=== PATIENT | male | born 1935 | race Caucasian/White ===

== ENCOUNTER → 2016-10-24 | Outpatient (CLI) | payer MEDICARE, OTHER ==
[2016-10-24 08:31] LABS: APPEARANCE,URINE CLEAR; BILIRUBIN,URINE NEGATIVE (NEGATIVE); GLUCOSE, URINE NEGATIVE (NEGATIVE); KETONES,URINE NEGATIVE (NEGATIVE); LEUKOCYTE ESTERASE,URINE NEGATIVE (NEGATIVE); NITRITE,URINE NEGATIVE (NEGATIVE); PROTEIN,URINE NEGATIVE (NEGATIVE); URINE SPECIFIC GRAVITY 1.011; UROBILINOGEN,URINE NEGATIVE mg/dL (<2.0)
[2016-10-24 08:37] LABS: ABSOLUTE BASOPHILS # (AUTO) 0.1 10^3/uL (0.0-0.2); ABSOLUTE EOSINOPHILS # (AUTO) 0.5 10^3/uL (0.0-0.6); ABSOLUTE NEUT (AUTO) 7.3 10^3/uL (1.7-8.2); BASOPHILS % (AUTO) 0.7 % (0-2); EOSINOPHILS % (AUTO) 4.6 % (0-6); HEMATOCRIT 45.2 % (37.9-51.0); HEMOGLOBIN 15.3 g/dL (13.5-17.0); HGB HCT DIFFERENCE 0.7; LYMPHOCYTES % (AUTO) 17.9 % (13-45); MEAN CORPUSCULAR HEMOGLOBIN 29.6 pg (27.0-33.4); MEAN CORPUSCULAR HGB CONC 33.9 g/dL (32.0-36.0); MEAN CORPUSCULAR VOLUME 87 fl (80-97); MONOCYTES % (AUTO) 9.6 % (3-13); RED BLOOD COUNT 5.18 10^6/uL (4.35-5.55); RED CELL DISTRIBUTION WIDTH 13.3 % (11.5-14.0); SEGMENTED NEUTROPHILS % (AUTO) 67.2 % (42-78); WHITE BLOOD COUNT 10.9 10^3/uL (4.0-10.5)
[2016-10-24 08:59] LABS: ALANINE AMINOTRANSFERASE 32 U/L (21-72); ALBUMIN 4.1 g/dL (3.5-5.0); ALKALINE PHOSPHATASE 60 U/L (38-126); ANION GAP 11 (5-19); ASPARTATE AMINO TRANSFERASE 20 U/L (17-59); BILIRUBIN,TOTAL 1.3 mg/dL (0.2-1.3); BLOOD UREA NITROGEN 14 mg/dL (7-20); CARBON DIOXIDE 32 mmol/L (22-30); CHLORIDE 100 mmol/L (98-107); CHOLESTEROL 114.59 mg/dL (0-200); CREATININE RESULT 0.82 mg/dL (0.52-1.25); Direct HDL 43 mg/dL (>40); GLUCOSE 163 mg/dL (75-110); POTASSIUM 5.1 mmol/L (3.6-5.0); SODIUM 142.5 mmol/L (137-145); TOTAL PROTEIN 7.6 g/dL (6.3-8.2); TRIGLYCERIDES 173 mg/dL (<150)
[2016-10-24 09:00] LABS: VLDL CHOLESTEROL 34.6 mg/dL (10-31)
[2016-10-24 09:10] LABS: DIRECT LDL 42 mg/dL (<100)
== END ==
LOC: OD 07:10
DX: E11.9 Type 2 diabetes mellitus without complications (principal); M10.9 Gout, unspecified; R79.89 Other specified abnormal findings of blood chemistry; I10 Essential (primary) hypertension; Z79.899 Other long term (current) drug therapy
CPT/HCPCS: 36415; 71020; 80053; 80061; 81001; 83036; 84443; 84550; 85025

== ENCOUNTER → 2016-11-30 | Outpatient (CLI) | payer MEDICARE, OTHER ==
[2016-11-30 08:07] LABS: ALANINE AMINOTRANSFERASE 30 U/L (21-72); ALBUMIN 3.9 g/dL (3.5-5.0); ALKALINE PHOSPHATASE 62 U/L (38-126); ANION GAP 13 (5-19); ASPARTATE AMINO TRANSFERASE 22 U/L (17-59); BILIRUBIN,TOTAL 1.3 mg/dL (0.2-1.3); BLOOD UREA NITROGEN 9 mg/dL (7-20); CALCIUM 9.6 mg/dL (8.4-10.2); CARBON DIOXIDE 27 mmol/L (22-30); CHLORIDE 102 mmol/L (98-107); CREATININE RESULT 0.66 mg/dL (0.52-1.25); GLUCOSE 141 mg/dL (75-110); POTASSIUM 4.3 mmol/L (3.6-5.0); SODIUM 142.4 mmol/L (137-145); TOTAL PROTEIN 6.8 g/dL (6.3-8.2)
== END ==
LOC: OD 07:06
DX: E11.9 Type 2 diabetes mellitus without complications (principal); Z79.899 Other long term (current) drug therapy
CPT/HCPCS: 36415; 80048; 80076

== ENCOUNTER → 2016-12-09 | Outpatient (CLI) | payer MEDICARE, OTHER | LOC: OD 08:12 | DX: N40.0 Benign prostatic hyperplasia without lower urinary tract symptoms (principal) | CPT/HCPCS: 36415; 84153 ==

== ENCOUNTER 2017-03-15 10:24 | Day surgery (SDC) | payer MEDICARE, OTHER ==
[~2017-03-15 10:24] MED LIST: KETOROLAC TROMETHAMINE 0.45% 4 DROP/0.4 ML DROPERETTE OD PRN; PHENYLEPHRINE/KETOROLAC 1%-0.3% 4 ML VIAL ONE
[2017-03-15] MEDS ORDERED: CHONDR SU A NA/HYALUR INTRAOC KIT (SURGICARE) ONE (10:26)
[2017-03-15] MEDS ORDERED: TOBRAMYCIN SULFATE/DEXAMETH OPH OINTMENT 3.5 GM ONE (10:26)
[2017-03-15] MEDS ORDERED: LIDOCAINE 1% INJ-PF (10 MG/ML) 30 ML SDV ONE (10:26)
[2017-03-15] MEDS: TROPICAMIDE 1% OPH SOLN 3 ML OD PRN ×4 (11:09→11:29)
[2017-03-15] MEDS: BESIFLOXACIN HCL 0.6% OPH SUSP 5 ML BOTTLE OD PRN ×4 (11:09→12:04)
[2017-03-15] MEDS: CYCLOPENTOLATE 0.2%/PHENYLEPHRINE 1% OPH SOLN 2 ML OD PRN ×3 (11:09→11:29)
[2017-03-15] MEDS: TETRACAINE HCL 0.5% OPH SOLN 0.6 ML DROPERETTE OD PRN ×2 (11:10→11:41)
[2017-03-15] MEDS ORDERED: FENTANYL CITRATE INJ/PF 100 MCG/2 ML AMPUL ONE (11:22)
[2017-03-15] MEDS ORDERED: MIDAZOLAM 2 MG/2 ML INJ ONE (11:22)
[2017-03-15] MEDS ORDERED: CHONDR SU A NA/HYALUR SOD 0.5 ML DISP.SYRIN ONE (12:13)
== END 2017-03-15 13:09 | disposition home or self-care (01) ==
LOC: SC 10:24
PROVIDERS: ATTEND Ophthalmology
PROC: 08RJ3JZ Replacement of Right Lens with Synthetic Substitute, Percutaneous Approach (ICD-10-PCS; 2017-03-15)
PROC: 089230Z Drainage of Right Anterior Chamber with Drainage Device, Percutaneous Approach (ICD-10-PCS; principal; 2017-03-15 11:30)
DX: H25.11 Age-related nuclear cataract, right eye (principal); H40.1111 Primary open-angle glaucoma, right eye, mild stage; M19.90 Unspecified osteoarthritis, unspecified site; E11.9 Type 2 diabetes mellitus without complications; K21.9 Gastro-esophageal reflux disease without esophagitis; E78.00 Pure hypercholesterolemia, unspecified; D64.9 Anemia, unspecified; G47.30 Sleep apnea, unspecified; M10.9 Gout, unspecified; Z79.82 Long term (current) use of aspirin; Z79.899 Other long term (current) drug therapy; Z79.84 Long term (current) use of oral hypoglycemic drugs; Z95.1 Presence of aortocoronary bypass graft; I25.2 Old myocardial infarction
CPT/HCPCS: 0191T; 66984; 142; 82962; C1783; C9447; J2250; J3010; J3490; V2630

== ENCOUNTER → 2017-08-10 | Outpatient (CLI) | payer MEDICARE, OTHER ==
[~2017-08-10] MED LIST changes: +AMINOPHYLLINE INJ/PF 250 MG/10 ML SDV IV ONE; -KETOROLAC TROMETHAMINE 0.45% 4 DROP/0.4 ML DROPERETTE OD PRN; -PHENYLEPHRINE/KETOROLAC 1%-0.3% 4 ML VIAL ONE; +REGADENOSON INJ 0.4 MG/5 ML DISP.SYRIN IV ONE
--- NOTE | 2017-08-10 19:32 | DRAGON STRESS TEST REPORT ---
INTRAVENOUS LEXISCAN CARDIOLITE STRESS TEST USING SINGLE PHOTON EMMISION COMPUTERIZED TOMOGRAPHIC. DATE OF PROCEDURE: August 10, 2017 INDICATION : Coronary artery disease CARDIAC RISK FACTORS: Diabetes, hypertension, dyslipidemia, known CAD and status post CABG RESTING EKG: Sinus rhythm, QS complex in V1 to V3, minor nonspecific ST segment changes noted STRESS EKG: No significant changes noted with LexiScan bolus REASON FOR TERMINATION: Protocol. PROCEDURE REPORT: Baseline heart rate 62 beats per minute with blood pressure of 164/94. Patient had no significant complaints. Heart rate at 2 minutes post bolus 75 with a blood pressure of 187/81. 3 minutes post bolus heart rate 71 with blood pressure of 181/83. No significant EKG changes were noted. Patient had no significant complaints during the procedure or postprocedure. Patient injected with Aminophyllin 75 mg at 3 minutes or later after Lexiscan bolus. CONCLUSIONS: Normal EKG and hemodynamic response to IV LexiScan. NUCLEAR DATA: At rest the patient was given 12.25 millicuries of technetium 99 sestamibi injected intravenously. As per protocol rest gated SPECT images were obtained. Subsequently the patient was given intravenous LexiScan at a dose of 0.4 mg in 5 mL intravenously, followed by flush with normal saline. Subsequently the stress dose of 37.1 millicuries of technetium 99 sestamibi was injected intravenously. As per protocol stress gated images were obtained. NUCLEAR INTERPRETATION: Both raw and processed data were used for interpretation. Visual, qualitative, computer-generated quantitative data was used. There was good myocardial uptake of technetium compound. Motion artifact and soft tissue attenuations were noted. Increased visceral uptake was noted. No definitive areas of transient perfusion defect noted except for mild decreased uptake in the basal and mid segment of inferolateral wall consistent with mild ischemia. SDS score was however only 2. No definitive areas of fixed perfusion defect or scars noted. EKG gated imaging showed LV EF at 46 %, rest and stress gated EF similar visually, probable mild basal and mid inferolateral hypokinesia. T. I D. ratio was 1.05. Lung heart ratio noted to be within normal limits 0.25. No significant extracardiac and abnormal radiotracer activities were noted. RV free wall uptake was noted to be mildly increased. IMPRESSION: Also refer to comments under nuclear interpretation. Also test results needs to be interpreted in the context of pretest probability. 1. Mild transient perfusion defect consistent with mild ischemia noted in the basal and mid inferolateral wall of the left ventricle. SDS score of 2. 2. There is no definitive scintigraphic evidence of myocardial infarction/scar. 3. EKG gated imaging shows left ventricular ejection fraction of approximately 46 %. 4. Clinical correlation requested as occasionally single vessel disease or balanced ischemia could be missed. In approximately 10% of the cases Lexiscan may not cause adequate vasodilatory stress. RECOMMENDATIONS: Aggressive risk factor modification, medical therapy. Clinical correlation with echocardiogram derived ejection fraction. Inability to exercise by itself can lead to increased cardiovascular event risks. Consider cardiology consultation and or follow-up if clinically indicated. Baldomero Morillo M.D., [employer] assembly inspector, Board certified in cardiovascular diseases, Nuclear cardiology, Echocardiography Cardiac CT and cardiac MRI Ph. [phone] [facility]
== END ==
LOC: RAD 07:21
PROVIDERS: ATTEND Internal Medicine Cardiovascular Disease
DX: I25.10 Atherosclerotic heart disease of native coronary artery without angina pectoris (principal); I10 Essential (primary) hypertension; E11.9 Type 2 diabetes mellitus without complications; E78.5 Hyperlipidemia, unspecified; Z95.1 Presence of aortocoronary bypass graft
CPT/HCPCS: 93017; 78452; A9500; J2785; J0280; Q9969

== ENCOUNTER → 2017-10-10 | Outpatient (CLI) | payer MEDICARE, OTHER ==
[2017-10-10 08:30] LABS: ABSOLUTE BASOPHILS # (AUTO) 0.1 10^3/uL (0.0-0.2); ABSOLUTE EOSINOPHILS # (AUTO) 0.7 10^3/uL (0.0-0.6); ABSOLUTE LYMPHOCYTES (AUTO) 1.9 10^3/uL (0.5-4.7); ABSOLUTE MONOCYTES (AUTO) 0.8 10^3/uL (0.1-1.4); ABSOLUTE NEUT (AUTO) 5.3 10^3/uL (1.7-8.2); BASOPHILS % (AUTO) 1.1 % (0-2); EOSINOPHILS % (AUTO) 7.6 % (0-6); HEMATOCRIT 41.6 % (37.9-51.0); HEMOGLOBIN 14.4 g/dL (13.5-17.0); LYMPHOCYTES % (AUTO) 21.6 % (13-45); MEAN CORPUSCULAR HEMOGLOBIN 29.9 pg (27.0-33.4); MEAN CORPUSCULAR HGB CONC 34.7 g/dL (32.0-36.0); MEAN CORPUSCULAR VOLUME 86 fl (80-97); MONOCYTES % (AUTO) 9.3 % (3-13); PLATELET COUNT 218 10^3/uL (150-450); RED BLOOD COUNT 4.84 10^6/uL (4.35-5.55); RED CELL DISTRIBUTION WIDTH 13.5 % (11.5-14.0); SEGMENTED NEUTROPHILS % (AUTO) 60.4 % (42-78); TOTAL CELLS COUNTED % (AUTO) 100 %; WHITE BLOOD COUNT 8.8 10^3/uL (4.0-10.5)
[2017-10-10 08:51] LABS: ALANINE AMINOTRANSFERASE 30 U/L (21-72); ALBUMIN 4.1 g/dL (3.5-5.0); ALKALINE PHOSPHATASE 64 U/L (38-126); ANION GAP 10 (5-19); ASPARTATE AMINO TRANSFERASE 22 U/L (17-59); BILIRUBIN,DIRECT 0.3 mg/dL (0.0-0.4); BILIRUBIN,TOTAL 1.1 mg/dL (0.2-1.3); BLOOD UREA NITROGEN 10 mg/dL (7-20); CARBON DIOXIDE 32 mmol/L (22-30); CHLORIDE 102 mmol/L (98-107); CHOLESTEROL 116.51 mg/dL (0-200); GLUCOSE 139 mg/dL (75-110); TOTAL PROTEIN 6.7 g/dL (6.3-8.2); TRIGLYCERIDES 158 mg/dL (<150); URIC ACID 5.5 mg/dL (3.5-8.5)
[2017-10-10 09:02] LABS: DIRECT LDL 53 mg/dL (<100)
[2017-10-10 09:43] LABS: VLDL CHOLESTEROL 31.6 mg/dL (10-31)
[2017-10-13 10:38] LABS: CREATININE URINE 76.3 mg/dL (Not Estab.); MICROALBUMIN URINE 4.1 ug/mL (Not Estab.)
== END ==
LOC: OD 07:21
PROVIDERS: ATTEND Family Medicine Geriatric Medicine
DX: E11.9 Type 2 diabetes mellitus without complications (principal); E78.5 Hyperlipidemia, unspecified; E55.9 Vitamin D deficiency, unspecified; Z79.899 Other long term (current) drug therapy
CPT/HCPCS: 36415; 80053; 80061; 82043; 82306; 82570; 82607; 83036; 84443; 84550; 85025

== ENCOUNTER 2017-10-15 12:47 | Emergency (ER) | payer MEDICARE, OTHER ==
--- NOTE | 2017-10-15 14:33 | ER Document Report ---
ED Medical Screen (RME) - General Chief Complaint: Laceration Stated Complaint: FALL HEAD INJURY Time Seen by Provider: 10/15/17 14:31 Mode of Arrival: Ambulatory Information source: Patient Notes: This is an 82-year-old man that was helped moving a mattress and fell and hit his head. There was no loss of consciousness. He does have a laceration to the right side of the scalp. He thinks that his tetanus was in the last 5-10 years. He is accompanied by his daughter who will be checking with his TRAVEL OUTSIDE OF THE [place] IN LAST 30 DAYS: No - Related Data Allergies/Adverse Reactions: No Known Allergies Allergy (Verified 10/15/17 12:50) Past Medical History - Social History Frequency of alcohol use: None Drug Abuse: None - Past Medical History Cardiac Medical History: Reports: Hx Heart Attack - 14 YEARS AGO, Hx Hypercholesterolemia - ABOUT THREE YEARS AGO, Hx Hypertension - YEARS AGO Pulmonary Medical History: Denies: Hx Asthma Neurological Medical History: Denies: Hx Cerebrovascular Accident, Hx Seizures Endocrine Medical History: Reports: Hx Diabetes Mellitus Type 2 - DX SIX YEARS AGO Renal/ Medical History: Denies: Hx Peritoneal Dialysis GI Medical History: Reports: Hx Hiatal Hernia - 1958. Denies: Hx Hepatitis, Hx Ulcer Psychiatric Medical History: Reports: Hx Post Traumatic Stress Disorder - DX A COUPLE OF YEARS Infectious Medical History: Denies: Hx Hepatitis Past Surgical History: Reports: Hx Cardiac Surgery - ABOUT SIX YEARS, Hx Open Heart Surgery - 2002, 5 VESSEL, Hx Tonsillectomy - A CHILD. Denies: Hx Adenoidectomy, Hx Pacemaker Physical Exam - Vital signs Vitals: Temp Pulse Resp BP Pulse Ox 98.1 F 64 16 207/104 H 97 10/15/17 12:57 10/15/17 12:57 10/15/17 12:57 10/15/17 12:57 10/15/17 12:57 Course - Vital Signs Vital signs: Temp Pulse Resp BP Pulse Ox 98.1 F 64 16 207/104 H 97 10/15/17 12:57 10/15/17 12:57 10/15/17 12:57 10/15/17 12:57 10/15/17 12:57
--- NOTE | 2017-10-15 14:52 | RADIOLOGY REPORT (SQ) ---
EXAM DESCRIPTION: CT HEAD WITHOUT COMPLETED DATE/TIME: 10/15/2017 2:45 pm REASON FOR STUDY: hit head COMPARISON: None. TECHNIQUE: Axial images acquired through the brain without intravenous contrast. Images reviewed wi th bone, brain and subdural windows. Images stored on PACS. All CT scanners at this facility use dose modulation, iterative reconstruction, and/or weight based d osing when appropriate to reduce radiation dose to as low as reasonably achievable (ALARA). [facility]: Dose Right [facility]: CareDose [facility]: Dose Right [facility]: Teradose 4D [facility]: Minded RADIATION DOSE: CT Rad equipment meets quality standard of care and radiation dose reduction techniq ues were employed. CTDIvol: 64.6 mGy. DLP: 1163 mGy-cm. mGy. LIMITATIONS: None. FINDINGS: VENTRICLES: Prominent. CEREBRUM: No masses. No hemorrhage. No midline shift. Areas of low density in the white matter mos t likely due to chronic micro-vascular ischemic change. No evidence for acute infarction. CEREBELLUM: No masses. No hemorrhage. No alteration of density. No evidence for acute infarction. EXTRAAXIAL SPACES: Mild age-related involutional change. No fluid collections. No masses. ORBITS AND GLOBE: No intra- or extraconal masses. Normal contour of globe without masses. CALVARIUM: No fracture. PARANASAL SINUSES: No fluid or mucosal thickening. SOFT TISSUES: Laceration right parietal scalp. OTHER: No other significant finding. IMPRESSION: SOFT TISSUE INJURY WITHOUT FRACTURE OR ACUTE INTRACRANIAL PROCESS IDENTIFIED. EVIDENCE OF ACUTE STROKE: NO. TECHNICAL DOCUMENTATION: JOB ID: [id number] Quality ID # [id number]: Final reports with documentation of one or more dose reduction techniques (e.g., Au tomated exposure control, adjustment of the mA and/or kV according to patient size, use of iterative reconstruction technique) 2010 [employer]- All Rights Reserved
[2017-10-15] MEDS ORDERED: TETANUS/DIPHTHERIA TOX-ADULT 0.5 ML SYR (>=7YO) IM ONE (15:01)
--- NOTE | 2017-10-15 15:01 | RADIOLOGY REPORT (SQ) ---
EXAM DESCRIPTION: CT CERVICAL SPINE WITHOUT COMPLETED DATE/TIME: 10/15/2017 2:51 pm REASON FOR STUDY: fall, hit head COMPARISON: None. TECHNIQUE: Axial images acquired through the cervical spine without intravenous contrast. Images re viewed with lung, soft tissue and bone windows. Reconstructed coronal and sagittal MPR images review ed. Images stored on PACS. All CT scanners at this facility use dose modulation, iterative reconstruction, and/or weight based d osing when appropriate to reduce radiation dose to as low as reasonably achievable (ALARA). [facility]: Dose Right [facility]: CareDose [facility]: Dose Right [facility]: Teradose 4D [facility]: [employer] RADIATION DOSE: CT Rad equipment meets quality standard of care and radiation dose reduction techniq ues were employed. CTDIvol: 20.6 mGy. DLP: 374 mGy-cm. mGy. LIMITATIONS: None. FINDINGS: ALIGNMENT: Anatomic. MINERALIZATION: Normal. VERTEBRAL BODIES: No fractures or dislocation. DISCS: Multilevel disc space narrowing with osteophytes. FACETS, LATERAL MASSES, POSTERIOR ELEMENTS: Facet arthropathy. No fractures. No dislocation. No ac atka findings. HARDWARE: None in the spine. VISUALIZED RIBS: No fractures. LUNG APICES AND SOFT TISSUES: No significant or acute findings. OTHER: No other significant finding. IMPRESSION: CHRONIC DEGENERATIVE CHANGES. NO ACUTE FINDINGS. TECHNICAL DOCUMENTATION: JOB ID: [id number] Quality ID # [id number]: Final reports with documentation of one or more dose reduction techniques (e.g., Au tomated exposure control, adjustment of the mA and/or kV according to patient size, use of iterative reconstruction technique) 2010 [employer]- All Rights Reserved
[2017-10-15] MEDS ORDERED: LIDOCAINE 1%/EPINEPHRINE INJ 20 ML VIAL INJ ONE (15:04)
--- NOTE | 2017-10-15 15:09 | ER Document Report ---
ED Head/Face/Scalp Injury - General Chief Complaint: Laceration Stated Complaint: FALL HEAD INJURY Time Seen by Provider: 10/15/17 14:31 Mode of Arrival: Ambulatory Information source: Patient, Relative TRAVEL OUTSIDE OF THE [place] IN LAST 30 DAYS: No - HPI Patient complains to provider of: Injury, Laceration Injury to: Head Occurred: Just prior to arrival Where: Outdoors Context: Fell Notes: Patient arrives with his daughter at the bedside. States that he was helping his grandson move a mattress out of a trailer when the mattress began to fall knocking him to the ground. He hit the right side of his head on the corner of a door causing a laceration. There is no loss of consciousness. He is on no blood thinning medications other than a daily baby aspirin. He denies any new blurred or loss vision. He denies any neck, back, chest, abdominal pain. He denies any unilateral numbness tingling or weakness. He denies any nausea, vomiting, diarrhea. His last tetanus was within 2009. He denies any other injuries or any other complaints at this time. - Related Data Allergies/Adverse Reactions: No Known Allergies Allergy (Verified 10/15/17 12:50) Past Medical History - General Information source: Patient - Social History Smoking Status: Never Smoker Frequency of alcohol use: None Drug Abuse: None Family History: Reviewed & Not Pertinent Patient has suicidal ideation: No Patient has homicidal ideation: No - Past Medical History Cardiac Medical History: Reports: Hx Heart Attack - 14 YEARS AGO, Hx Hypercholesterolemia - ABOUT THREE YEARS AGO, Hx Hypertension - YEARS AGO Pulmonary Medical History: Denies: Hx Asthma Neurological Medical History: Denies: Hx Cerebrovascular Accident, Hx Seizures Endocrine Medical History: Reports: Hx Diabetes Mellitus Type 2 - DX SIX YEARS AGO Renal/ Medical History: Denies: Hx Peritoneal Dialysis GI Medical History: Reports: Hx Hiatal Hernia - 1958. Denies: Hx Hepatitis, Hx Ulcer Psychiatric Medical History: Reports: Hx Post Traumatic Stress Disorder - DX A COUPLE OF YEARS Infectious Medical History: Denies: Hx Hepatitis Past Surgical History: Reports: Hx Cardiac Surgery - ABOUT SIX YEARS, Hx Open Heart Surgery - 2002, 5 VESSEL, Hx Tonsillectomy - A CHILD. Denies: Hx Adenoidectomy, Hx Pacemaker Review of Systems - Review of Systems -: Yes All other systems reviewed and negative Physical Exam - Vital signs Vitals: Temp Pulse Resp BP Pulse Ox 98.1 F 64 16 207/104 H 97 10/15/17 12:57 10/15/17 12:57 10/15/17 12:57 10/15/17 12:57 10/15/17 12:57 - Notes Notes: GENERAL: alert, cooperative, nontoxic, no distress. HEAD: normocephalic, 10 cm laceration to the right parietal scalp. No active bleeding. No foreign body. EYES: conjunctiva pink without discharge, no external redness or swelling. PERRL , EOM'S INTACT EARS: no external swelling, no external redness. No hemotympanum EM NOSE: atraumatic, no external swelling. No bleeding MOUTH/THROAT: mucous membranes moist and pink, posterior pharynx without erythema, swelling, exudate. No trismus or drooling. NECK: soft, supple, full range of motion, no meningismus. No midline tenderness step-offs or crepitus to palpation of the cervical spine. CHEST: no distress, lungs clear and equal throughout. No wheezing, rales, rhonchi. CARDIAC: regular rate and rhythm, no murmur, normal capillary refill, normal pulses. No peripheral edema noted. ABDOMEN: Soft, nontender. No ecchymosis. BACK: full range of motion, no CVA tenderness. No midline tenderness step-offs or crepitus to palpation of the thoracic or lumbar spine. EXTREMITIES: full range of motion of all extremities. No redness, no swelling. NEURO: alert and oriented x 3, no focal deficits, full range of motion of all extremities. Cranial nerves II through XII are grossly intact. Reflexes are normal bilaterally. Normal sensation bilaterally. Normal strength bilaterally. PYSCH: appropriate mood, affect. Patient is cooperative. SKIN: pink, warm, dry, no rash. Course - Re-evaluation Re-evalutation: 10/15/17 15:52 Patient is nontoxic appearing with stable vitals. The patient was helping his grandson move a mattress when he excellently fell and struck the right side of his head on the corner of a door causing a laceration. No loss of consciousness. No blood thinners. He has a normal neurological exam. CT of the brain shows no acute intracranial abnormalities. Tetanus was updated in the emergency department today. Laceration was closed with lisa. Patient will be discharged home with wound care instructions, follow-up in 7 days for staple removal, follow-up sooner for severe headache, persistent vomiting, numbness, tingling, weakness, any further concerns. The patient is noted to have elevated blood pressure during today's emergency department visit. The patient was informed of this finding. The patient was instructed that this may be related to pre-hypertension and requires further evaluation with a primary care provider. The patient has no hypertensive symptoms at this time. The patient's emergency department workup and current diagnosis were explained to the patient and or family. Follow-up instructions were provided. Medications if prescribed were discussed. Instructions for when to return to the emergency department including specific worrisome symptoms were discussed with the patient and/or family. - Vital Signs Vital signs: Temp Pulse Resp BP Pulse Ox 98.1 F 64 16 207/104 H 97 10/15/17 12:57 10/15/17 12:57 10/15/17 12:57 10/15/17 12:57 10/15/17 12:57 - Diagnostic Test Radiology reviewed: Image reviewed, Reports reviewed - CT head with no acute intracranial bleed or skull fracture per the radiologist. Procedures - Laceration/Wound Repair Right parietal scalp Wound length (cm): 10 Wound's Depth, Shape: Superficial, Linear Laceration pre-procedure: Sterile PPE donned, Sterile drapes applied Anesthetic type: 1% Lidocaine w/epi Wound explored: Clean, No foreign body removed Irrigated w/ Saline (mLs): 50 Wound Repaired With: [address] Number of Sutures: 11 Layer Closure?: No Post-procedure NV exam normal: Yes Complications: No Discharge - Discharge Clinical Impression: Scalp laceration Qualifiers: Encounter type: initial encounter Qualified Code(s): S01.01XA - Laceration without foreign body of scalp, initial encounter Head injury Qualifiers: Encounter type: initial encounter Qualified Code(s): S09.90XA - Unspecified injury of head, initial encounter Condition: Stable Disposition: HOME, SELF-CARE Instructions: Laceration Care ([facility]), Tetanus Immunization Given ([facility]) Additional Instructions: Keep wound clean and dry. Clean wound twice a day with soap and water. Follow- up with your doctor in 7 days for staple removal. Follow-up sooner for increased pain, fever, redness, drainage, severe headache, blurred or loss vision, persistent vomiting, or for any further concerns. Your blood pressure was elevated during today's visit. Have this rechecked with your doctor. Forms: Elevated Blood Pressure, Smoking Cessation Education
[2017-10-15 16:09] VITALS: BP 176/85
== END 2017-10-15 16:09 | disposition home or self-care (01) ==
LOC: ER 12:47
DX: S01.01XA Laceration without foreign body of scalp, initial encounter (principal); W18.09XA Striking against other object with subsequent fall, initial encounter; Y93.89 Activity, other specified; E11.9 Type 2 diabetes mellitus without complications; I10 Essential (primary) hypertension; I25.2 Old myocardial infarction; Z79.82 Long term (current) use of aspirin; Z23 Encounter for immunization
CPT/HCPCS: 99283; 90471; 70450; 72125; 90714; 12004; J3490

== ENCOUNTER → 2017-11-24 | Outpatient (CLI) | payer MEDICARE, OTHER ==
[2017-11-24 08:59] LABS: ANION GAP 12 (5-19); BLOOD UREA NITROGEN 10 mg/dL (7-20); CALCIUM 9.6 mg/dL (8.4-10.2); CARBON DIOXIDE 28 mmol/L (22-30); CHLORIDE 93 mmol/L (98-107); GLUCOSE 152 mg/dL (75-110); SODIUM 132.7 mmol/L (137-145)
== END ==
LOC: OD 07:21
PROVIDERS: ATTEND Family Medicine Geriatric Medicine
DX: E78.2 Mixed hyperlipidemia (principal); I10 Essential (primary) hypertension; Z79.899 Other long term (current) drug therapy
CPT/HCPCS: 36415; 80048

== ENCOUNTER → 2018-02-26 | Outpatient (CLI) | payer MEDICARE, OTHER ==
[2018-02-26 08:28] LABS: ALANINE AMINOTRANSFERASE 29 U/L (21-72); ANION GAP 12 (5-19); ASPARTATE AMINO TRANSFERASE 19 U/L (17-59); BLOOD UREA NITROGEN 11 mg/dL (7-20); CALCIUM 9.7 mg/dL (8.4-10.2); CARBON DIOXIDE 28 mmol/L (22-30); CHLORIDE 93 mmol/L (98-107); CHOLESTEROL 110.15 mg/dL (0-200); GLUCOSE 138 mg/dL (75-110); POTASSIUM 5.1 mmol/L (3.6-5.0); SODIUM 132.7 mmol/L (137-145); TRIGLYCERIDES 209 mg/dL (<150); URIC ACID 6.3 mg/dL (3.5-8.5)
[2018-02-26 08:38] LABS: DIRECT LDL 41 mg/dL (<100)
[2018-02-26 08:43] LABS: VLDL CHOLESTEROL 41.8 mg/dL (10-31)
[2018-02-27 13:38] LABS: CREATININE URINE 42.5 mg/dL (Not Estab.)
[2018-02-27 13:50] LABS: MICROALBUMIN URINE <3.0 ug/mL (Not Estab.)
== END ==
LOC: OD 07:32
PROVIDERS: ATTEND Family Medicine Geriatric Medicine
DX: E87.1 Hypo-osmolality and hyponatremia (principal); I10 Essential (primary) hypertension; E78.2 Mixed hyperlipidemia; Z79.899 Other long term (current) drug therapy
CPT/HCPCS: 36415; 80048; 80061; 82043; 82570; 83036; 84450; 84460; 84550

== ENCOUNTER → 2018-03-12 | Outpatient (CLI) | payer MEDICARE, OTHER | LOC: OD 09:46 | PROVIDERS: ATTEND Family Medicine Geriatric Medicine | DX: E83.51 Hypocalcemia (principal) | CPT/HCPCS: 36415; 84132 ==

== ENCOUNTER → 2018-04-02 | Outpatient (CLI) | payer MEDICARE, OTHER ==
[2018-04-02 09:23] LABS: ALANINE AMINOTRANSFERASE 24 U/L (21-72); CHOLESTEROL 111.98 mg/dL (0-200); TRIGLYCERIDES 212 mg/dL (<150)
[2018-04-02 09:35] LABS: DIRECT LDL 40 mg/dL (<100)
[2018-04-02 10:21] LABS: VLDL CHOLESTEROL 42.4 mg/dL (10-31)
== END ==
LOC: OD 07:31
PROVIDERS: ATTEND Family Medicine Geriatric Medicine
DX: E55.9 Vitamin D deficiency, unspecified (principal); E78.5 Hyperlipidemia, unspecified; E53.8 Deficiency of other specified B group vitamins
CPT/HCPCS: 36415; 80061; 82306; 82607; 84460

== ENCOUNTER 2018-07-02 09:48 | Emergency (ER) | payer MEDICARE, OTHER ==
[2018-07-02 09:55] VITALS: BP 130/70
--- NOTE | 2018-07-02 10:45 | RADIOLOGY REPORT (SQ) ---
EXAM DESCRIPTION: CT HEAD WITHOUT COMPLETED DATE/TIME: 07/02/2018 10:33 am REASON FOR STUDY: fall COMPARISON: None. TECHNIQUE: Axial images acquired through the brain without intravenous contrast. Images reviewed wi th bone, brain and subdural windows. Additional sagittal and coronal reconstructions were generated. Images stored on PACS. All CT scanners at this facility use dose modulation, iterative reconstruction, and/or weight based d osing when appropriate to reduce radiation dose to as low as reasonably achievable (ALARA). [facility]: Dose Right [facility]: CareDose [facility]: Dose Right [facility]: Teradose 4D [facility]: [employer] RADIATION DOSE: CT Rad equipment meets quality standard of care and radiation dose reduction techniq ues were employed. CTDIvol: 53.2 mGy. DLP: 1044 mGy-cm. mGy. LIMITATIONS: None. FINDINGS: VENTRICLES: Normal size and contour. CEREBRUM: No CT evidence of acute large territory ischemic change, acute intracranial hemorrhage, mas s effect, or midline shift. 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 CEREBELLUM: No masses. No hemorrhage. No alteration of density. No evidence for acute infarction. EXTRAAXIAL SPACES: No fluid collections. No masses. ORBITS AND GLOBE: No intra- or extraconal masses. Normal contour of globe without masses. CALVARIUM: No fracture. PARANASAL SINUSES: No fluid or mucosal thickening. SOFT TISSUES: No mass or hematoma. OTHER: No other significant finding. IMPRESSION: No acute findings EVIDENCE OF ACUTE STROKE: NO. COMMENT: Quality ID # [id number]: Final reports with documentation of one or more dose reduction techniques (e.g., Automated exposure control, adjustment of the mA and/or kV according to patient size, use of iterative reconstruction technique) TECHNICAL DOCUMENTATION: JOB ID: [id number] [employer]- All Rights Reserved Reading location - IP/workstation name: [email or web address]
--- NOTE | 2018-07-02 10:48 | RADIOLOGY REPORT (SQ) ---
EXAM DESCRIPTION: CT CERVICAL SPINE WITHOUT COMPLETED DATE/TIME: 07/02/2018 10:33 am REASON FOR STUDY: fall COMPARISON: 10/15/2017 CT cervical spine TECHNIQUE: Axial images acquired through the cervical spine without intravenous contrast. Images re viewed with lung, soft tissue and bone windows. Reconstructed coronal and sagittal MPR images review ed. Images stored on PACS. All CT scanners at this facility use dose modulation, iterative reconstruction, and/or weight based d osing when appropriate to reduce radiation dose to as low as reasonably achievable (ALARA). [facility]: Dose Right [facility]: CareDose [facility]: Dose Right [facility]: Teradose 4D [facility]: [employer] RADIATION DOSE: CT Rad equipment meets quality standard of care and radiation dose reduction techniq ues were employed. CTDIvol: 21.9 mGy. DLP: 417 mGy-cm. mGy. LIMITATIONS: None. FINDINGS: ALIGNMENT: Anatomic. MINERALIZATION: Normal. VERTEBRAL BODIES: No fractures or dislocation. DISCS: Multilevel disc space narrowing with osteophytes. FACETS, LATERAL MASSES, POSTERIOR ELEMENTS: Facet arthropathy. No fractures. No dislocation. No ac bonny findings. HARDWARE: None in the spine. VISUALIZED RIBS: No fractures. LUNG APICES AND SOFT TISSUES: No significant or acute findings. OTHER: No other significant finding. IMPRESSION: CHRONIC DEGENERATIVE CHANGES. NO ACUTE FINDINGS. TECHNICAL DOCUMENTATION: JOB ID: [id number] Quality ID # [id number]: Final reports with documentation of one or more dose reduction techniques (e.g., Au tomated exposure control, adjustment of the mA and/or kV according to patient size, use of iterative reconstruction technique) 2010 [employer]- All Rights Reserved Reading location - IP/workstation name: [email or web address]
--- NOTE | 2018-07-02 10:58 | ER Document Report ---
ED General - General Chief Complaint: Fall Stated Complaint: FALL/HEAD INJURY Time Seen by Provider: 07/02/18 09:58 TRAVEL OUTSIDE OF THE [place] IN LAST 30 DAYS: No - HPI Patient complains to provider of: Fall head injury Notes: Patient was walking upstairs when he tripped and fell hitting his face. Patient is on the blood thinning medications denies any loss consciousness however states he felt like he did want to pass out. Patient has multiple abrasions and contusions to the forehead and area. Patient also has a small skin flap on the left thumb. Patient otherwise is resting comfortably denies any other pain no neck pain no chest pain no fevers no chills no nausea no vomiting no diarrhea. Patient in no obvious distress upon my evaluation. - Related Data Allergies/Adverse Reactions: No Known Allergies Allergy (Verified 07/02/18 09:50) Past Medical History - Social History Smoking Status: Never Smoker Frequency of alcohol use: None Drug Abuse: None Family History: Reviewed & Not Pertinent Patient has suicidal ideation: No Patient has homicidal ideation: No - Past Medical History Cardiac Medical History: Reports: Hx Heart Attack - 14 YEARS AGO, Hx Hypercholesterolemia - ABOUT THREE YEARS AGO, Hx Hypertension Denies: Hx Coronary Artery Disease Pulmonary Medical History: Denies: Hx Asthma, Hx Bronchitis, Hx COPD, Hx Pneumonia Neurological Medical History: Denies: Hx Cerebrovascular Accident, Hx Seizures Endocrine Medical History: Reports: Hx Diabetes Mellitus Type 2 Renal/ Medical History: Denies: Hx Peritoneal Dialysis GI Medical History: Reports: Hx Gastroesophageal Reflux Disease, Hx Hiatal Hernia - 1958. Denies: Hx Hepatitis, Hx Ulcer Musculoskeletal Medical History: Denies Hx Arthritis Psychiatric Medical History: Reports: Hx Post Traumatic Stress Disorder - DX A COUPLE OF YEARS Infectious Medical History: Denies: Hx Hepatitis Past Surgical History: Reports: Hx Cardiac Surgery - ABOUT SIX YEARS, Hx Open Heart Surgery - 2002, 5 VESSEL, Hx Tonsillectomy - A CHILD. Denies: Hx Adenoidectomy, Hx Pacemaker Review of Systems - Review of Systems Constitutional: Other - Fall head injury skin avulsion EENT: No symptoms reported Cardiovascular: No symptoms reported Respiratory: No symptoms reported Gastrointestinal: No symptoms reported Genitourinary: No symptoms reported Male Genitourinary: No symptoms reported Musculoskeletal: No symptoms reported Skin: No symptoms reported Hematologic/Lymphatic: No symptoms reported Neurological/Psychological: No symptoms reported Physical Exam - Vital signs Vitals: Temp Pulse Resp BP Pulse Ox 97.8 F 68 20 130/70 H 97 07/02/18 09:54 07/02/18 09:54 07/02/18 09:54 07/02/18 09:54 07/02/18 09:54 Interpretation: Normal - General General appearance: Appears well, Alert - HEENT Head: Normocephalic. No: Atraumatic - Multiple abrasions and contusions to the forehead along with a abrasion to the nasal bridge Eyes: Normal Pupils: PERRL - Respiratory Respiratory status: No respiratory distress Chest status: Nontender Breath sounds: Normal Chest palpation: Normal - Cardiovascular Rhythm: Regular Heart sounds: Normal auscultation Murmur: No - Abdominal Inspection: Normal Distension: No distension Bowel sounds: Normal Tenderness: Nontender Organomegaly: No organomegaly - Back Back: Normal, Nontender - Extremities General upper extremity: Nontender, Normal color, Normal ROM, Normal temperature. No: Normal inspection - Right hand affected patient has a avulsion of skin on the tip of the thumb not completely gone is held together by a thin piece this is already turning dark and dusky General lower extremity: Normal inspection, Nontender, Normal color, Normal ROM , Normal temperature, Normal weight bearing. No: Coral's sign - Neurological Neuro grossly intact: Yes Cognition: Normal Orientation: AAOx4 Morena Coma Scale Eye Opening: Spontaneous Beasley Coma Scale Verbal: Oriented Morena Coma Scale Motor: Obeys Commands Morena Coma Scale Total: 15 Speech: Normal Motor strength normal: LUE, RUE, LLE, RLE Sensory: Normal - Psychological Associated symptoms: Normal affect, Normal mood - Skin Skin Temperature: Warm Skin Moisture: Dry Skin Color: Normal Course - Re-evaluation Re-evalutation: 07/02/18 19:45 Steri-Strips were applied to the avulsion and explained to the patient more likely this may fall off recommend triple antibiotic ointment to the area. Patient states understanding. Patient underwent CT of his head and cervical spine show no acute traumatic findings. Patient understands soap and water for abrasions will follow with primary care physician patient was discharged home - Vital Signs Vital signs: Temp Pulse Resp BP Pulse Ox 97.8 F 68 20 130/70 H 97 07/02/18 09:54 07/02/18 09:54 07/02/18 09:54 10/08/18 09:54 07/02/18 09:54 Discharge - Discharge Clinical Impression: Fall Qualifiers: Encounter type: initial encounter Qualified Code(s): W19.XXXA - Unspecified fall, initial encounter Facial abrasion Qualifiers: Encounter type: initial encounter Qualified Code(s): S00.81XA - Abrasion of other part of head, initial encounter Avulsion of skin of left thumb Qualifiers: Encounter type: initial encounter Qualified Code(s): S61.002A - Unspecified open wound of left thumb without damage to nail, initial encounter Instructions: Abrasions of the Face ([facility]), Care of Steri-Strip Closure ([facility]) Additional Instructions: CT scans that show any signs of acute traumatic findings today. Follow-up with your primary care physician return to ER symptoms worsen I recommend applying antibiotic ointment to the abrasions Referrals: MAGDA ARAUJO MD [Primary Care Provider] - Follow up as needed
== END 2018-07-02 11:06 | disposition home or self-care (01) ==
LOC: ER 09:48
DX: S00.83XA Contusion of other part of head, initial encounter (principal); S61.002A Unspecified open wound of left thumb without damage to nail, initial encounter; W10.8XXA Fall (on) (from) other stairs and steps, initial encounter; E11.9 Type 2 diabetes mellitus without complications; I10 Essential (primary) hypertension; I25.2 Old myocardial infarction; Z79.01 Long term (current) use of anticoagulants
CPT/HCPCS: 70450; 72125; 99284

== ENCOUNTER → 2018-07-03 | Outpatient (CLI) | payer MEDICARE, OTHER ==
[2018-07-03 10:19] LABS: ALANINE AMINOTRANSFERASE 22 U/L (21-72); ANION GAP 11 (5-19); BLOOD UREA NITROGEN 9 mg/dL (7-20); CALCIUM 9.2 mg/dL (8.4-10.2); CARBON DIOXIDE 27 mmol/L (22-30); CHLORIDE 101 mmol/L (98-107); CHOLESTEROL 100.52 mg/dL (0-200); GLUCOSE 145 mg/dL (75-110); POTASSIUM 5.2 mmol/L (3.6-5.0); SODIUM 138.7 mmol/L (137-145); TRIGLYCERIDES 167 mg/dL (<150)
[2018-07-03 10:34] LABS: DIRECT LDL 39 mg/dL (<100)
[2018-07-03 10:35] LABS: VLDL CHOLESTEROL 33.4 mg/dL (10-31)
== END ==
LOC: OD 08:48
PROVIDERS: ATTEND Family Medicine Geriatric Medicine
DX: E11.29 Type 2 diabetes mellitus with other diabetic kidney complication (principal); E78.5 Hyperlipidemia, unspecified; I10 Essential (primary) hypertension
CPT/HCPCS: 36415; 80048; 80061; 83036; 84460

== ENCOUNTER 2018-07-04 06:53 | Day surgery (SDC) | payer MEDICARE, OTHER ==
[2018-06-29 12:10] LABS: HEMATOCRIT 36.4 % (37.9-51.0); MEAN CORPUSCULAR HEMOGLOBIN 30.8 pg (27.0-33.4); MEAN CORPUSCULAR HGB CONC 35.6 g/dL (32.0-36.0); MEAN CORPUSCULAR VOLUME 87 fl (80-97); PLATELET COUNT 282 10^3/uL (150-450); RED CELL DISTRIBUTION WIDTH 13.1 % (11.5-14.0); WHITE BLOOD COUNT 9.2 10^3/uL (4.0-10.5)
[2018-06-29 12:11] LABS: APPEARANCE,URINE CLEAR; BILIRUBIN,URINE NEGATIVE (NEGATIVE); COLOR,URINE YELLOW; GLUCOSE, URINE NEGATIVE (NEGATIVE); KETONES,URINE NEGATIVE (NEGATIVE); LEUKOCYTE ESTERASE,URINE NEGATIVE (NEGATIVE); NITRITE,URINE NEGATIVE (NEGATIVE); PROTEIN,URINE NEGATIVE (NEGATIVE); URINE SPECIFIC GRAVITY 1.009; UROBILINOGEN,URINE NEGATIVE mg/dL (<2.0)
[2018-06-29 12:32] LABS: ANION GAP 12 (5-19); BLOOD UREA NITROGEN 11 mg/dL (7-20); CALCIUM 9.6 mg/dL (8.4-10.2); CARBON DIOXIDE 26 mmol/L (22-30); CHLORIDE 96 mmol/L (98-107); GLUCOSE 158 mg/dL (75-110); POTASSIUM 5.2 mmol/L (3.6-5.0); SODIUM 134.3 mmol/L (137-145)
--- NOTE | 2018-06-29 14:50 | RADIOLOGY REPORT (SQ) ---
EXAM DESCRIPTION: CHEST PA/LATERAL COMPLETED DATE/TIME: 06/29/2018 11:44 am REASON FOR STUDY: PRE-OP COMPARISON: 10/24/2016 EXAM PARAMETERS: NUMBER OF VIEWS: two views TECHNIQUE: Digital Frontal and Lateral radiographic views of the chest acquired. RADIATION DOSE: NA LIMITATIONS: none FINDINGS: LUNGS AND PLEURA: No opacities, masses or pneumothorax. No pleural effusion. MEDIASTINUM AND HILAR STRUCTURES: No masses or contour abnormalities. HEART AND VASCULAR STRUCTURES: Heart normal size. No evidence for failure. BONES: No acute findings. HARDWARE: Sternotomy wires. OTHER: No other significant finding. IMPRESSION: NO SIGNIFICANT RADIOGRAPHIC FINDING IN THE CHEST. TECHNICAL DOCUMENTATION: JOB ID: [id number] [employer]- All Rights Reserved Reading location - IP/workstation name: [email or web address]
--- NOTE | 2018-06-30 19:29 | EKG REPORT ---
SEVERITY:- ABNORMAL ECG - SINUS RHYTHM FIRST DEGREE AV BLOCK ANTERIOR INFARCT, OLD NONSPECIFIC T ABNORMALITIES, INFERIOR LEADS : Confirmed by: Baldomero Morillo 30-Jun-2018 19:28:21
[~2018-07-04 06:53] MED LIST changes: -AMINOPHYLLINE INJ/PF 250 MG/10 ML SDV IV ONE; +CEFAZOLIN 2 GM/D5W RTU 2 GM/50 ML RTUPB IV ONE; +CEFAZOLIN 2 GM/D5W RTU 2 GM/50 ML RTUPB IV PRN; +LACTATED RINGERS 1000 ML IV PRN; +LIDOCAINE 0.5% INJ-PF (5 MG/ML) 50 ML SDV SUBCUT PRN; -REGADENOSON INJ 0.4 MG/5 ML DISP.SYRIN IV ONE
[2018-07-04] MEDS ORDERED: BUPIVACAINE HCL 0.5 % INJ/PF 30 ML SDV ONE (08:13)
[2018-07-04 08:23] LABS: POTASSIUM 4.4 mmol/L (3.6-5.0)
[2018-07-04] MEDS ORDERED: DIPHENHYDRAMINE HCL 50 MG/ML VIAL IV PRN (08:49)
[2018-07-04] MEDS ORDERED: MEPERIDINE HCL/PF INJ 25 MG/1 ML DISP.SYRIN IV PRN (08:49)
[2018-07-04] MEDS ORDERED: FENTANYL CITRATE INJ/PF 100 MCG/2 ML AMPUL IV PRN ×3 (08:49)
[2018-07-04] MEDS ORDERED: PROMETHAZINE HCL INJ 25 MG/1 ML VIAL IV PRN ×2 (08:49)
[2018-07-04] MEDS ORDERED: OXYCODONE-ACETAMINOPHEN 5-325 MG TABLET PO PRN ×2 (08:49)
[2018-07-04] MEDS ORDERED: MIDAZOLAM 2 MG/2 ML INJ ONE (09:07)
[2018-07-04] MEDS ORDERED: FENTANYL CITRATE INJ/PF 100 MCG/2 ML AMPUL ONE (09:07)
[2018-07-04] MEDS ORDERED: PROPOFOL INJ 200 MG/20 ML VIAL IV ONE (09:08)
[2018-07-04] MEDS ORDERED: LIDOCAINE 1%/EPINEPHRINE INJ 20 ML VIAL ONE (09:34)
--- NOTE | 2018-07-04 09:57 | Discharge Summary ---
Discharge Summary (SDC) - Discharge Final Diagnosis: Left olecranon bursitis Date of Surgery: 07/04/18 Discharge Date: 07/04/18 Condition: Good Treatment or Instructions: Activity as tolerated Prescriptions: Hydrocodone/Acetaminophen [Calera 5-325 mg Tablet] 1 tab PO Q6 PRN #40 tablet PRN Reason: Referrals: MAGDA ARAUJO MD [Primary Care Provider] - Discharge Diet: As Tolerated, Regular Respiratory Treatments at Home: Deep Breathing/Coughing Discharge Activity: Balance Activity w/Rest, No tub bath Home Care Assistance: None Needed Report the Following to Your Physician Immediately: Shortness of Breath, Fever over 101 Degrees, Drainage-Foul Smelling
--- NOTE | 2018-07-04 09:59 | Operative Report ---
Operative Report DATE OF SURGERY: 07/04/18 PREOPERATIVE DIAGNOSIS: Left olecranon bursitis POSTOPERATIVE DIAGNOSIS: Same OPERATION: Left olecranon bursectomy SURGEON: OZ HART ANESTHESIA: LMAC TISSUE REMOVED OR ALTERED: Bursa to pathology ESTIMATED BLOOD LOSS: Minimal PROCEDURE: With the patient in a sloppy right lateral decubitus position on the operating table the left upper extremity is prepped and draped in a sterile fashion. The skin overlying the medial aspect of the olecranon is infiltrated with a combination of Xylocaine, Marcaine, and epinephrine. Subsequently a 8 cm longitudinal incision was made along the line just medial to the olecranon and sharp dissection was carried incision through the dermis. The soft tissue then elevated in the subcutaneous plane superficial to the olecranon bursa but maintaining the skin as the skin is rolled back towards the lateral aspect of the olecranon. This continues such that the olecranon bursa is a slightly remains attached just to the deep layer. The deep layer is disrupted using a 15 blade to elevate the soft the underlying olecranon bone. Specimen was delivered from the field. Hemostasis was obtained with electrocautery. The wound is irrigated with bulb lavage. Subsequent reapproximated using a Vicryl followed by nylon. A sterile compressive dressing was applied and the patient' s return to PACU in satisfactory condition
[2018-07-04] MEDS ORDERED: HYDROCODONE/ACETAMINOPHEN 5-325 MG TABLET PO PRN (10:57)
[2018-07-04 11:32] VITALS: BP 137/79
== END 2018-07-04 11:40 | disposition home or self-care (01) ==
LOC: OROUT 06:53
PROVIDERS: ATTEND Orthopaedic Surgery
DX: M70.22 Olecranon bursitis, left elbow (principal); M10.9 Gout, unspecified; E11.9 Type 2 diabetes mellitus without complications; I10 Essential (primary) hypertension; M19.90 Unspecified osteoarthritis, unspecified site; I69.398 Other sequelae of cerebral infarction; H53.8 Other visual disturbances; Z79.82 Long term (current) use of aspirin; Z79.899 Other long term (current) drug therapy; Z79.84 Long term (current) use of oral hypoglycemic drugs; Z79.1 Long term (current) use of non-steroidal anti-inflammatories (NSAID); I25.2 Old myocardial infarction
CPT/HCPCS: 93005; 36415 ×2; 82947; 84132; 85027; 80048; 81001; 88305 ×2; 71046; 93010; 24105; J2250; J3490 ×2; J3010; J2704; J0690; 1710

== ENCOUNTER → 2018-07-11 | Outpatient (CLI) | payer MEDICARE, OTHER ==
[2018-07-11 12:41] LABS: ABSOLUTE BASOPHILS # (AUTO) 0.1 10^3/uL (0.0-0.2); ABSOLUTE EOSINOPHILS # (AUTO) 0.4 10^3/uL (0.0-0.6); ABSOLUTE LYMPHOCYTES (AUTO) 2.1 10^3/uL (0.5-4.7); ABSOLUTE MONOCYTES (AUTO) 1.2 10^3/uL (0.1-1.4); ABSOLUTE NEUT (AUTO) 5.9 10^3/uL (1.7-8.2); BASOPHILS % (AUTO) 1.2 % (0-2); EOSINOPHILS % (AUTO) 4.4 % (0-6); HEMATOCRIT 36.7 % (37.9-51.0); HEMOGLOBIN 13.3 g/dL (13.5-17.0); LYMPHOCYTES % (AUTO) 21.2 % (13-45); MEAN CORPUSCULAR HEMOGLOBIN 31.4 pg (27.0-33.4); MEAN CORPUSCULAR HGB CONC 36.1 g/dL (32.0-36.0); MEAN CORPUSCULAR VOLUME 87 fl (80-97); MONOCYTES % (AUTO) 12.3 % (3-13); PLATELET COUNT 282 10^3/uL (150-450); RED BLOOD COUNT 4.23 10^6/uL (4.35-5.55); RED CELL DISTRIBUTION WIDTH 13.3 % (11.5-14.0); SEGMENTED NEUTROPHILS % (AUTO) 60.9 % (42-78); TOTAL CELLS COUNTED % (AUTO) 100 %; WHITE BLOOD COUNT 9.7 10^3/uL (4.0-10.5)
[2018-07-11 12:59] LABS: ALANINE AMINOTRANSFERASE 18 U/L (21-72); ALBUMIN 4.3 g/dL (3.5-5.0); ALKALINE PHOSPHATASE 66 U/L (38-126); ANION GAP 14 (5-19); ASPARTATE AMINO TRANSFERASE 18 U/L (17-59); BILIRUBIN,DIRECT 0.3 mg/dL (0.0-0.4); BLOOD UREA NITROGEN 9 mg/dL (7-20); CALCIUM 9.6 mg/dL (8.4-10.2); CARBON DIOXIDE 26 mmol/L (22-30); CHLORIDE 97 mmol/L (98-107); GLUCOSE 154 mg/dL (75-110); POTASSIUM 4.8 mmol/L (3.6-5.0); SODIUM 136.7 mmol/L (137-145); TOTAL PROTEIN 7.4 g/dL (6.3-8.2); URIC ACID 5.7 mg/dL (3.5-8.5)
--- NOTE | 2018-07-11 14:24 | RADIOLOGY REPORT (SQ) ---
EXAM DESCRIPTION: CHEST PA/LATERAL COMPLETED DATE/TIME: 07/11/2018 11:56 am REASON FOR STUDY: WT LOSS COMPARISON: 04/19/2010 EXAM PARAMETERS: NUMBER OF VIEWS: two views TECHNIQUE: Digital Frontal and Lateral radiographic views of the chest acquired. RADIATION DOSE: NA LIMITATIONS: none FINDINGS: LUNGS AND PLEURA: No opacities, masses or pneumothorax. No pleural effusion. MEDIASTINUM AND HILAR STRUCTURES: No masses or contour abnormalities. HEART AND VASCULAR STRUCTURES: Heart normal size. No evidence for failure. BONES: No acute findings. HARDWARE: Sternotomy wires. OTHER: No other significant finding. IMPRESSION: NO SIGNIFICANT RADIOGRAPHIC FINDING IN THE CHEST. TECHNICAL DOCUMENTATION: JOB ID: [id number] [employer]- All Rights Reserved Reading location - IP/workstation name: [email or web address]
[2018-07-12 16:40] LABS: A/G RATIO 0.9 (0.7-1.7); ALBUMIN 2 3.4 g/dL (2.9-4.4); ALPHA-2-GLOBULIN 2 1.1 g/dL (0.4-1.0); BETA GLOBULINS 1.2 g/dL (0.7-1.3); GAMMA GLOBULIN 1.2 g/dL (0.4-1.8); GLOBULIN TOTAL 3.7 g/dL (2.2-3.9); MONOCLONAL SPIKE Not Observed g/dL (Not Observ); PROTEIN TOTAL SERUM 7.1 g/dL (6.0-8.5)
== END ==
LOC: OD 11:16
PROVIDERS: ATTEND Family Medicine Geriatric Medicine
DX: E87.1 Hypo-osmolality and hyponatremia (principal); M10.9 Gout, unspecified; R63.4 Abnormal weight loss; Z79.899 Other long term (current) drug therapy
CPT/HCPCS: 36415; 71046; 80053; 84165; 84550; 85025

== ENCOUNTER → 2018-11-29 | Outpatient (CLI) | payer MEDICARE, OTHER ==
[2018-11-29 08:25] LABS: ABSOLUTE BASOPHILS # (AUTO) 0.1 10^3/uL (0.0-0.2); ABSOLUTE EOSINOPHILS # (AUTO) 0.5 10^3/uL (0.0-0.6); ABSOLUTE MONOCYTES (AUTO) 1.2 10^3/uL (0.1-1.4); ABSOLUTE NEUT (AUTO) 5.5 10^3/uL (1.7-8.2); BASOPHILS % (AUTO) 1.1 % (0-2); EOSINOPHILS % (AUTO) 4.9 % (0-6); HEMATOCRIT 37.1 % (37.9-51.0); HEMOGLOBIN 12.9 g/dL (13.5-17.0); LYMPHOCYTES % (AUTO) 21.6 % (13-45); MEAN CORPUSCULAR HEMOGLOBIN 30.6 pg (27.0-33.4); MEAN CORPUSCULAR HGB CONC 34.8 g/dL (32.0-36.0); MEAN CORPUSCULAR VOLUME 88 fl (80-97); MONOCYTES % (AUTO) 12.5 % (3-13); PLATELET COUNT 248 10^3/uL (150-450); RED BLOOD COUNT 4.23 10^6/uL (4.35-5.55); RED CELL DISTRIBUTION WIDTH 14.3 % (11.5-14.0); SEGMENTED NEUTROPHILS % (AUTO) 59.9 % (42-78); TOTAL CELLS COUNTED % (AUTO) 100 %; WHITE BLOOD COUNT 9.2 10^3/uL (4.0-10.5)
[2018-11-29 08:56] LABS: ALANINE AMINOTRANSFERASE 35 U/L (21-72); ANION GAP 10 (5-19); BLOOD UREA NITROGEN 16 mg/dL (7-20); CALCIUM 9.2 mg/dL (8.4-10.2); CARBON DIOXIDE 31 mmol/L (22-30); CHLORIDE 97 mmol/L (98-107); CHOLESTEROL 114.66 mg/dL (0-200); GLUCOSE 141 mg/dL (75-110); POTASSIUM 4.8 mmol/L (3.6-5.0); SODIUM 137.5 mmol/L (137-145); TRIGLYCERIDES 159 mg/dL (<150)
[2018-11-29 09:07] LABS: DIRECT LDL 60 mg/dL (<100)
[2018-11-29 09:21] LABS: VLDL CHOLESTEROL 31.8 mg/dL (10-31)
[2018-11-30 10:38] LABS: CREATININE URINE 64.8 mg/dL (Not Estab.)
[2018-11-30 10:45] LABS: MICROALBUMIN URINE <3.0 ug/mL (Not Estab.)
== END ==
LOC: OD 07:23
PROVIDERS: ATTEND Family Medicine Geriatric Medicine
DX: E11.8 Type 2 diabetes mellitus with unspecified complications (principal); E78.5 Hyperlipidemia, unspecified; E87.1 Hypo-osmolality and hyponatremia; I10 Essential (primary) hypertension; Z79.899 Other long term (current) drug therapy
CPT/HCPCS: 36415; 80048; 80061; 82043; 82570; 83036; 84460; 85025

== ENCOUNTER 2019-02-14 09:06 | Day surgery (SDC) | payer MEDICARE, OTHER ==
[2019-02-14] MEDS ORDERED: NALOXONE HCL INJ/PF 0.4 MG/1 ML SDV ONE (09:31)
[2019-02-14] MEDS ORDERED: FLUMAZENIL INJ 0.5 MG/5 ML VIAL ONE (09:31)
[2019-02-14] MEDS ORDERED: DIPHENHYDRAMINE HCL 50 MG/ML VIAL ONE (09:31)
[2019-02-14] MEDS ORDERED: EPINEPHRINE INJ 1 MG/10 ML DISP.SYRIN ONE (09:31)
[2019-02-14] MEDS ORDERED: GLUCAGON,HUMAN RECOMB 1 MG INJ ONE (09:31)
[2019-02-14] MEDS ORDERED: ONDANSETRON HCL INJ/PF 4 MG/2 ML SDV ONE (09:31)
[2019-02-14] MEDS ORDERED: MIDAZOLAM 2 MG/2 ML INJ ONE (09:31)
[2019-02-14] MEDS ORDERED: FENTANYL CITRATE INJ/PF 100 MCG/2 ML AMPUL ONE (09:31)
--- NOTE | 2019-02-14 10:35 | Discharge Summary ---
Discharge Summary (SDC) - Discharge Final Diagnosis: Diverticulosis otherwise normal colonoscopy Date of Surgery: 02/14/19 Discharge Date: 02/14/19 Condition: Good Treatment or Instructions: [place] [id number] POST ENDOSCOPY DISCHARGE INSTRUCTIONS 1. Diet: Start clear liquids that a regular diet as tolerated. 2. Resume all preoperative medications. All oral anticoagulants and aspirins can be resumed 24 hours after procedure. 3. If a polypectomy was performed some bleeding per rectum may occur. This should stop within 3 days. If not, please contact the office. 4. If you had a colonoscopy you may experience some bloating and delayed return of normal bowel function for several days, your regular bowel movement pattern should resume within a week. 5. Please contact [facility] at to make an appoint ment with Dr. Gleason for 1 to 3 weeks following procedure. 6. If you have any questions or concerns regarding your care,treatment plan or follow up, please contact our office. 7. Per clinical guidelines, based on age, we recommend not undergo another colonoscopy unless clinically indicated. Referrals: MAGDA ARAUJO MD [Primary Care Provider] - Discharge Diet: As Tolerated Respiratory Treatments at Home: Deep Breathing/Coughing Discharge Activity: Activity As Tolerated, Balance Activity w/Rest, No Driving Home Care Assistance: None Needed Report the Following to Your Physician Immediately: Shortness of Breath, Nausea, Vomiting, Increase in Pain, Fever over 101 Degrees, Unusual Bleeding, Increased Soreness, Large Clots, IV Site Infection Signs
--- NOTE | 2019-02-14 10:37 | Operative Report ---
Operative Report DATE OF SURGERY: 02/14/19 PREOPERATIVE DIAGNOSIS: Screening for colon carcinoma POSTOPERATIVE DIAGNOSIS: Normal colonoscopy; sigmoid diverticulosis OPERATION: Total colonoscopy to cecum with photodocumentation. SURGEON: ANNE PARRY ANESTHESIA: Moderate Sedation TISSUE REMOVED OR ALTERED: None COMPLICATIONS: None ESTIMATED BLOOD LOSS: None INTRAOPERATIVE FINDINGS: See below PROCEDURE: Obtaining informed consent the patient was taken from the preoperative holding area to the main endoscopy suite where monitoring devices were attached to the patient. Plan and surgical timeout were conducted The patient was placed in the left lateral decubitus position with knees to chest. A perianal examination was performed. There was no visible or palpable anorectal pathology. Sphincter tone was felt to be normal. The flexible adult colonoscope was advanced through the anal rectal canal, all the way to the cecum. Visualization of the cecum was achieved and the ileocecal valve, the appendiceal orifice and transillumination of the anterior abdominal wall were seen.. This was an excellent study on the well-prepped bowel. The colonoscope was withdrawn slowly and methodically checked and the mucosa carefully. There was no evidence of tumor, stricture, bleeding or polyp. There were extensive diverticulosis of the sigmoid colon . The scope was slowly withdrawn through the anal rectal canal. Complete visualization of the rectum was achieved with photodocumentation. The scope was withdrawn to the patient's anus. The patient tolerated the procedure well and was taken to the recovery area in stable condition. The perianal excoriation seen in the clinic 1 week prior has markedly improved. Based on patient's age, he will not require a follow-up colonoscopy, unless he develops GI symptoms.
[2019-02-14 11:30] VITALS: BP 135/70
== END 2019-02-14 11:30 | disposition home or self-care (01) ==
LOC: END 09:06
PROVIDERS: ATTEND Surgery
DX: Z12.11 Encounter for screening for malignant neoplasm of colon (principal); K57.30 Diverticulosis of large intestine without perforation or abscess without bleeding; I25.10 Atherosclerotic heart disease of native coronary artery without angina pectoris; I10 Essential (primary) hypertension; D64.9 Anemia, unspecified; E11.9 Type 2 diabetes mellitus without complications; G47.30 Sleep apnea, unspecified; Z86.14 Personal history of Methicillin resistant Staphylococcus aureus infection; H54.8 Legal blindness, as defined in USA; Z79.899 Other long term (current) drug therapy; Z01.818 Encounter for other preprocedural examination
CPT/HCPCS: 82962; G0121; J2250; J3010; 45378; J0171; J1200; J1610; J2310; J2405; J3490

== ENCOUNTER → 2019-03-26 | Outpatient (CLI) | payer MEDICARE, OTHER ==
[2019-03-26 08:19] LABS: ABSOLUTE BASOPHILS # (AUTO) 0.1 10^3/uL (0.0-0.2); ABSOLUTE EOSINOPHILS # (AUTO) 0.4 10^3/uL (0.0-0.6); ABSOLUTE LYMPHOCYTES (AUTO) 2.4 10^3/uL (0.5-4.7); ABSOLUTE MONOCYTES (AUTO) 0.9 10^3/uL (0.1-1.4); ABSOLUTE NEUT (AUTO) 5.8 10^3/uL (1.7-8.2); BASOPHILS % (AUTO) 1.3 % (0-2); EOSINOPHILS % (AUTO) 4.2 % (0-6); HEMATOCRIT 37.5 % (37.9-51.0); HEMOGLOBIN 13.1 g/dL (13.5-17.0); MEAN CORPUSCULAR HEMOGLOBIN 30.3 pg (27.0-33.4); MEAN CORPUSCULAR HGB CONC 34.9 g/dL (32.0-36.0); MEAN CORPUSCULAR VOLUME 87 fl (80-97); MONOCYTES % (AUTO) 9.3 % (3-13); PLATELET COUNT 287 10^3/uL (150-450); RED BLOOD COUNT 4.31 10^6/uL (4.35-5.55); RED CELL DISTRIBUTION WIDTH 13.8 % (11.5-14.0); SEGMENTED NEUTROPHILS % (AUTO) 60.2 % (42-78); TOTAL CELLS COUNTED % (AUTO) 100 %; WHITE BLOOD COUNT 9.7 10^3/uL (4.0-10.5)
[2019-03-26 08:34] LABS: ALANINE AMINOTRANSFERASE 30 U/L (21-72); ANION GAP 8 (5-19); BLOOD UREA NITROGEN 13 mg/dL (7-20); CALCIUM 9.3 mg/dL (8.4-10.2); CARBON DIOXIDE 30 mmol/L (22-30); CHLORIDE 96 mmol/L (98-107); CHOLESTEROL 113.55 mg/dL (0-200); GLUCOSE 137 mg/dL (75-110); POTASSIUM 5.1 mmol/L (3.6-5.0); SODIUM 134.4 mmol/L (137-145); TRIGLYCERIDES 208 mg/dL (<150); URIC ACID 6.5 mg/dL (3.5-8.5)
[2019-03-26 08:46] LABS: DIRECT LDL 55 mg/dL (<100)
[2019-03-26 08:49] LABS: VLDL CHOLESTEROL 41.6 mg/dL (10-31)
[2019-03-27 12:36] LABS: CREATININE URINE 100.3 mg/dL (Not Estab.); MICROALBUMIN URINE <3.0 ug/mL (Not Estab.)
== END ==
LOC: OD 07:11
PROVIDERS: ATTEND Family Medicine Geriatric Medicine
DX: E11.29 Type 2 diabetes mellitus with other diabetic kidney complication (principal); I10 Essential (primary) hypertension; M10.9 Gout, unspecified; E78.5 Hyperlipidemia, unspecified; Z79.899 Other long term (current) drug therapy
CPT/HCPCS: 36415; 80048; 80061; 82043; 82570; 83036; 84460; 84550; 85025

== ENCOUNTER → 2019-05-06 | Outpatient (CLI) | payer MEDICARE, OTHER | LOC: OD 11:17 | PROVIDERS: ATTEND Family Medicine Geriatric Medicine | DX: E87.5 Hyperkalemia (principal) | CPT/HCPCS: 36415; 84132 ==

== ENCOUNTER → 2019-07-17 | Outpatient (CLI) | payer MEDICARE, OTHER ==
[2019-07-17 07:55] LABS: ABSOLUTE BASOPHILS # (AUTO) 0.1 10^3/uL (0.0-0.2); ABSOLUTE EOSINOPHILS # (AUTO) 0.5 10^3/uL (0.0-0.6); ABSOLUTE LYMPHOCYTES (AUTO) 2.1 10^3/uL (0.5-4.7); ABSOLUTE MONOCYTES (AUTO) 1.1 10^3/uL (0.1-1.4); ABSOLUTE NEUT (AUTO) 6.3 10^3/uL (1.7-8.2); BASOPHILS % (AUTO) 1.1 % (0-2); HEMATOCRIT 37.8 % (37.9-51.0); LYMPHOCYTES % (AUTO) 20.9 % (13-45); MEAN CORPUSCULAR HEMOGLOBIN 29.9 pg (27.0-33.4); MEAN CORPUSCULAR HGB CONC 34.4 g/dL (32.0-36.0); MEAN CORPUSCULAR VOLUME 87 fl (80-97); MONOCYTES % (AUTO) 10.6 % (3-13); PLATELET COUNT 257 10^3/uL (150-450); RED BLOOD COUNT 4.35 10^6/uL (4.35-5.55); RED CELL DISTRIBUTION WIDTH 13.7 % (11.5-14.0); SEGMENTED NEUTROPHILS % (AUTO) 62.4 % (42-78); TOTAL CELLS COUNTED % (AUTO) 100 %; WHITE BLOOD COUNT 10.1 10^3/uL (4.0-10.5)
[2019-07-17 08:13] LABS: ANION GAP 12 (5-19); BLOOD UREA NITROGEN 13 mg/dL (7-20); CALCIUM 9.2 mg/dL (8.4-10.2); CARBON DIOXIDE 27 mmol/L (22-30); CHLORIDE 97 mmol/L (98-107); GLUCOSE 146 mg/dL (75-110); POTASSIUM 5.2 mmol/L (3.6-5.0); URIC ACID 6.5 mg/dL (3.5-8.5)
== END ==
LOC: OD 07:05
PROVIDERS: ATTEND Family Medicine Geriatric Medicine
DX: M10.9 Gout, unspecified (principal); E11.29 Type 2 diabetes mellitus with other diabetic kidney complication; D64.9 Anemia, unspecified; Z79.899 Other long term (current) drug therapy
CPT/HCPCS: 36415; 80048; 84550; 85025

== ENCOUNTER → 2019-07-22 | Outpatient (CLI) | payer MEDICARE, OTHER | LOC: OD 08:58 | PROVIDERS: ATTEND Family Medicine Geriatric Medicine | DX: E87.5 Hyperkalemia (principal) | CPT/HCPCS: 36415; 84132 ==

== ENCOUNTER → 2019-10-09 | Outpatient (CLI) | payer MEDICARE, OTHER ==
[2019-10-09 08:28] LABS: ABSOLUTE BASOPHILS # (AUTO) 0.1 10^3/uL (0.0-0.2); ABSOLUTE EOSINOPHILS # (AUTO) 0.5 10^3/uL (0.0-0.6); ABSOLUTE LYMPHOCYTES (AUTO) 2.1 10^3/uL (0.5-4.7); ABSOLUTE MONOCYTES (AUTO) 0.9 10^3/uL (0.1-1.4); ABSOLUTE NEUT (AUTO) 5.7 10^3/uL (1.7-8.2); BASOPHILS % (AUTO) 1.3 % (0-2); EOSINOPHILS % (AUTO) 5.3 % (0-6); HEMATOCRIT 38.6 % (37.9-51.0); HEMOGLOBIN 13.4 g/dL (13.5-17.0); LYMPHOCYTES % (AUTO) 22.5 % (13-45); MEAN CORPUSCULAR HEMOGLOBIN 30.2 pg (27.0-33.4); MEAN CORPUSCULAR HGB CONC 34.7 g/dL (32.0-36.0); MEAN CORPUSCULAR VOLUME 87 fl (80-97); MONOCYTES % (AUTO) 10.2 % (3-13); PLATELET COUNT 271 10^3/uL (150-450); RED BLOOD COUNT 4.44 10^6/uL (4.35-5.55); RED CELL DISTRIBUTION WIDTH 13.8 % (11.5-14.0); SEGMENTED NEUTROPHILS % (AUTO) 60.7 % (42-78); TOTAL CELLS COUNTED % (AUTO) 100 %; WHITE BLOOD COUNT 9.3 10^3/uL (4.0-10.5)
[2019-10-09 08:42] LABS: CHOLESTEROL 122.48 mg/dL (0-200); POTASSIUM 4.8 mmol/L (3.6-5.0); TRIGLYCERIDES 208 mg/dL (<150)
[2019-10-09 08:54] LABS: DIRECT LDL 59 mg/dL (<100)
[2019-10-09 08:56] LABS: VLDL CHOLESTEROL 41.6 mg/dL (10-31)
[2019-10-10 16:37] LABS: CREATININE URINE 102.9 mg/dL (Not Estab.); MICROALBUMIN URINE 3.8 ug/mL (Not Estab.)
== END ==
LOC: OD 07:05
PROVIDERS: ATTEND Family Medicine Geriatric Medicine
DX: E11.21 Type 2 diabetes mellitus with diabetic nephropathy (principal); I10 Essential (primary) hypertension; E78.5 Hyperlipidemia, unspecified; E87.5 Hyperkalemia; Z79.899 Other long term (current) drug therapy
CPT/HCPCS: 36415; 80061; 82043; 82570; 83036; 84132; 84460; 85025

== ENCOUNTER → 2020-01-10 | Outpatient (CLI) | payer MEDICARE, OTHER ==
[2020-01-10 09:00] LABS: ABSOLUTE BASOPHILS # (AUTO) 0.1 10^3/uL (0.0-0.2); ABSOLUTE EOSINOPHILS # (AUTO) 0.4 10^3/uL (0.0-0.6); ABSOLUTE LYMPHOCYTES (AUTO) 2.1 10^3/uL (0.5-4.7); ABSOLUTE NEUT (AUTO) 4.9 10^3/uL (1.7-8.2); BASOPHILS % (AUTO) 1.7 % (0-2); EOSINOPHILS % (AUTO) 4.5 % (0-6); HEMATOCRIT 38.1 % (37.9-51.0); HEMOGLOBIN 13.3 g/dL (13.5-17.0); LYMPHOCYTES % (AUTO) 24.8 % (13-45); MEAN CORPUSCULAR HEMOGLOBIN 30.5 pg (27.0-33.4); MEAN CORPUSCULAR HGB CONC 34.9 g/dL (32.0-36.0); MEAN CORPUSCULAR VOLUME 87 fl (80-97); MONOCYTES % (AUTO) 11.2 % (3-13); PLATELET COUNT 270 10^3/uL (150-450); RED BLOOD COUNT 4.36 10^6/uL (4.35-5.55); RED CELL DISTRIBUTION WIDTH 13.9 % (11.5-14.0); SEGMENTED NEUTROPHILS % (AUTO) 57.8 % (42-78); TOTAL CELLS COUNTED % (AUTO) 100 %; WHITE BLOOD COUNT 8.5 10^3/uL (4.0-10.5)
== END ==
LOC: OD 07:41
PROVIDERS: ATTEND Family Medicine Geriatric Medicine
DX: D64.9 Anemia, unspecified (principal)
CPT/HCPCS: 36415; 85025

== ENCOUNTER → 2020-06-10 | Outpatient (CLI) | payer MEDICARE, OTHER ==
[2020-06-10 08:49] LABS: ABSOLUTE BASOPHILS # (AUTO) 0.1 10^3/uL (0.0-0.2); ABSOLUTE EOSINOPHILS # (AUTO) 0.3 10^3/uL (0.0-0.6); ABSOLUTE LYMPHOCYTES (AUTO) 1.8 10^3/uL (0.5-4.7); ABSOLUTE NEUT (AUTO) 6.5 10^3/uL (1.7-8.2); BASOPHILS % (AUTO) 0.9 % (0-2); EOSINOPHILS % (AUTO) 3.3 % (0-6); HEMATOCRIT 37.8 % (37.9-51.0); HEMOGLOBIN 13.5 g/dL (13.5-17.0); LYMPHOCYTES % (AUTO) 18.2 % (13-45); MEAN CORPUSCULAR HEMOGLOBIN 30.9 pg (27.0-33.4); MEAN CORPUSCULAR HGB CONC 35.7 g/dL (32.0-36.0); MEAN CORPUSCULAR VOLUME 87 fl (80-97); MONOCYTES % (AUTO) 10.6 % (3-13); PLATELET COUNT 285 10^3/uL (150-450); RED BLOOD COUNT 4.37 10^6/uL (4.35-5.55); RED CELL DISTRIBUTION WIDTH 13.5 % (11.5-14.0); TOTAL CELLS COUNTED % (AUTO) 100 %; WHITE BLOOD COUNT 9.7 10^3/uL (4.0-10.5)
[2020-06-10 09:10] LABS: ALBUMIN 4.3 g/dL (3.5-5.0); ALKALINE PHOSPHATASE 77 U/L (38-126); ANION GAP 10 (5-19); ASPARTATE AMINO TRANSFERASE 24 U/L (17-59); BILIRUBIN,DIRECT 0.4 mg/dL (0.0-0.4); BILIRUBIN,TOTAL 1.2 mg/dL (0.2-1.3); BLOOD UREA NITROGEN 13 mg/dL (7-20); CALCIUM 9.3 mg/dL (8.4-10.2); CARBON DIOXIDE 29 mmol/L (22-30); CHLORIDE 94 mmol/L (98-107); CHOLESTEROL 121.89 mg/dL (0-200); GLUCOSE 139 mg/dL (75-110); POTASSIUM 4.7 mmol/L (3.6-5.0); TOTAL PROTEIN 7.1 g/dL (6.3-8.2); TRIGLYCERIDES 190 mg/dL (<150)
[2020-06-10 09:21] LABS: DIRECT LDL 54 mg/dL (<100)
[2020-06-11 14:37] LABS: CREATININE URINE 71.7 mg/dL (Not Estab.); MICROALBUMIN URINE 3.3 ug/mL (Not Estab.)
== END ==
LOC: OD 07:30
PROVIDERS: ATTEND Family Medicine Geriatric Medicine
DX: I10 Essential (primary) hypertension (principal); E11.21 Type 2 diabetes mellitus with diabetic nephropathy; E78.5 Hyperlipidemia, unspecified; E87.5 Hyperkalemia; M10.9 Gout, unspecified; Z79.899 Other long term (current) drug therapy
CPT/HCPCS: 36415; 80053; 80061; 82043; 82570; 83036; 84165; 84550; 85025

== ENCOUNTER → 2020-06-22 | Outpatient (CLI) | payer MEDICARE, OTHER ==
[2020-06-22 12:19] LABS: ABSOLUTE BASOPHILS # (AUTO) 0.1 10^3/uL (0.0-0.2); ABSOLUTE EOSINOPHILS # (AUTO) 0.3 10^3/uL (0.0-0.6); ABSOLUTE LYMPHOCYTES (AUTO) 2.4 10^3/uL (0.5-4.7); ABSOLUTE MONOCYTES (AUTO) 1.2 10^3/uL (0.1-1.4); ABSOLUTE NEUT (AUTO) 5.9 10^3/uL (1.7-8.2); BASOPHILS % (AUTO) 0.8 % (0-2); EOSINOPHILS % (AUTO) 3.2 % (0-6); HEMOGLOBIN 13.3 g/dL (13.5-17.0); LYMPHOCYTES % (AUTO) 23.9 % (13-45); MEAN CORPUSCULAR HEMOGLOBIN 30.5 pg (27.0-33.4); MEAN CORPUSCULAR VOLUME 87 fl (80-97); MONOCYTES % (AUTO) 12.2 % (3-13); PLATELET COUNT 251 10^3/uL (150-450); RED BLOOD COUNT 4.37 10^6/uL (4.35-5.55); RED CELL DISTRIBUTION WIDTH 13.7 % (11.5-14.0); SEGMENTED NEUTROPHILS % (AUTO) 59.9 % (42-78); TOTAL CELLS COUNTED % (AUTO) 100 %; WHITE BLOOD COUNT 9.9 10^3/uL (4.0-10.5)
[2020-06-22 12:23] LABS: APPEARANCE,URINE CLEAR; BILIRUBIN,URINE NEGATIVE (NEGATIVE); COLOR,URINE YELLOW; GLUCOSE, URINE NEGATIVE (NEGATIVE); KETONES,URINE NEGATIVE (NEGATIVE); LEUKOCYTE ESTERASE,URINE NEGATIVE (NEGATIVE); NITRITE,URINE NEGATIVE (NEGATIVE); PROTEIN,URINE NEGATIVE (NEGATIVE); URINE SPECIFIC GRAVITY 1.013; UROBILINOGEN,URINE NEGATIVE mg/dL (<2.0)
--- NOTE | 2020-06-22 12:26 | RADIOLOGY REPORT (SQ) ---
EXAM DESCRIPTION: CHEST PA/LATERAL IMAGES COMPLETED DATE/TIME: 06/22/2020 11:43 am REASON FOR STUDY: PRE-OP,PAIN IN LEFT SHOULDER,SEE ORDER COMPARISON: 04/23/2020 EXAM PARAMETERS: NUMBER OF VIEWS: two views TECHNIQUE: Digital Frontal and Lateral radiographic views of the chest acquired. RADIATION DOSE: NA LIMITATIONS: none FINDINGS: LUNGS AND PLEURA: No opacities, masses or pneumothorax. No pleural effusion. MEDIASTINUM AND HILAR STRUCTURES: No masses or contour abnormalities. HEART AND VASCULAR STRUCTURES: Heart normal size. No evidence for failure. BONES: No acute findings. HARDWARE: None in the chest. OTHER: No other significant finding. IMPRESSION: NO SIGNIFICANT RADIOGRAPHIC FINDING IN THE CHEST. TECHNICAL DOCUMENTATION: JOB ID: [id number] 2010 [employer]- All Rights Reserved Reading location - IP/workstation name: [email or web address]
--- NOTE | 2020-06-22 12:29 | RADIOLOGY REPORT (SQ) ---
EXAM DESCRIPTION: HUMERUS LEFT IMAGES COMPLETED DATE/TIME: 06/22/2020 11:43 am REASON FOR STUDY: PRE-OP,PAIN IN LEFT SHOULDER,SEE ORDER Z01.812 ENCOUNTER FOR PREPROCEDURAL LABORA TORY EXAMINATION M25.512 PAIN IN LEFT SHOULDER M25.812 OTHER SPECIFIED JOINT DISORDERS, LEFT SHOULD ER COMPARISON: None. NUMBER OF VIEWS: Two views. TECHNIQUE: Two radiographic images were acquired of the left humerus to include elbow and shoulder i n at least one projection. LIMITATIONS: None. FINDINGS: MINERALIZATION: Normal. BONES: There is a small lytic lesion that involves the medullary aspect of the humeral cortex. This appears relatively stable radiographically. SOFT TISSUES: No obvious swelling or foreign body. OTHER: No other significant finding. IMPRESSION: Lytic lesion in the distal humerus. TECHNICAL DOCUMENTATION: JOB ID: [id number] 2010 [employer]- All Rights Reserved Reading location - IP/workstation name: [email or web address]
[2020-06-22 12:41] LABS: ANION GAP 10 (5-19); BLOOD UREA NITROGEN 13 mg/dL (7-20); CARBON DIOXIDE 28 mmol/L (22-30); CHLORIDE 96 mmol/L (98-107); GLUCOSE 115 mg/dL (75-110); POTASSIUM 5.4 mmol/L (3.6-5.0)
--- NOTE | 2020-06-22 13:15 | EKG REPORT ---
SEVERITY:- ABNORMAL ECG - SINUS RHYTHM WITH FIRST DEGREE AVB RIGHT BUNDLE BRANCH BLOCK : Confirmed by: Alejo Chang MD 22-Jun-2020 13:14:44
== END ==
LOC: OD 10:43
PROVIDERS: ATTEND Orthopaedic Surgery
DX: Z01.810 Encounter for preprocedural cardiovascular examination (principal); Z01.811 Encounter for preprocedural respiratory examination; Z01.812 Encounter for preprocedural laboratory examination; Z03.818 Encounter for observation for suspected exposure to other biological agents ruled out; M25.512 Pain in left shoulder; M25.812 Other specified joint disorders, left shoulder; Z79.899 Other long term (current) drug therapy
CPT/HCPCS: 93005; 36415; 85025; 80048; 81001; 83036; 71046; 73060; 93010; U0003; C9803; 87635

== ENCOUNTER 2020-07-14 06:03 | Inpatient (IN) | payer MEDICARE, OTHER ==
[~2020-07-14 06:03] MED LIST changes: +BUPIVACAINE INJ/PF LIPOSOME/PF 266 MG/20 ML SDV INJ PRN; -CEFAZOLIN 2 GM/D5W RTU 2 GM/50 ML RTUPB IV PRN; -LACTATED RINGERS 1000 ML IV PRN; -LIDOCAINE 0.5% INJ-PF (5 MG/ML) 50 ML SDV SUBCUT PRN; +OXYCODONE HCL SR 10 MG TABLET PO ONE; +PANTOPRAZOLE SODIUM 20 MG TABLET.DR PO ONE
[2020-07-14] MEDS ORDERED: VASOPRESSIN INJ 20 UNIT/1 ML VIAL ONE (06:24)
[2020-07-14] MEDS ORDERED: LIDOCAINE 2% INJ-PF (20 MG/ML) 10 ML AMPUL ONE (06:25)
[2020-07-14] MEDS ORDERED: DEXAMETHASONE SOD PHOSPHATE INJ 4 MG/1 ML VIAL ONE (06:26)
[2020-07-14] MEDS ORDERED: EPHEDRINE SULFATE INJ 50 MG/1 ML AMPULE ONE (06:26)
[2020-07-14] MEDS ORDERED: PROPOFOL INJ 200 MG/20 ML VIAL IV ONE (06:26)
[2020-07-14] MEDS ORDERED: ONDANSETRON HCL INJ/PF 4 MG/2 ML SDV ONE (06:26)
[2020-07-14] MEDS ORDERED: DEXMEDETOMIDINE INJ 80 MCG/20 ML VIAL IV ONE (06:26)
[2020-07-14] MEDS ORDERED: FENTANYL CITRATE INJ/PF 100 MCG/2 ML AMPUL ONE (06:26)
[2020-07-14] MEDS ORDERED: CEFAZOLIN 2 GM/D5W RTU 2 GM/50 ML RTUPB IV ONE (06:30)
[2020-07-14] MEDS ORDERED: VANCOMYCIN HCL 1,000 MG in DEXTROSE 5%-WATER 250 ML IV PRN (07:02)
[2020-07-14] MEDS ORDERED: IBUPROFEN 800 MG in NORMAL SALINE 250 ML IV PRN (07:21)
[2020-07-14] MEDS ORDERED: TRANEXAMIC ACID INJ/PF 1,000 MG/10 ML SDV ONE (07:33)
[2020-07-14 07:38] LABS: POTASSIUM 4.1 mmol/L (3.6-5.0)
[2020-07-14] MEDS ORDERED: ROPIVACAINE HCL 0.5% INJ/PF (5 MG/1 ML) 30 ML SDV ONE (07:41)
[2020-07-14] MEDS ORDERED: DIPHENHYDRAMINE HCL 50 MG/ML VIAL IV PRN (09:20)
[2020-07-14] MEDS ORDERED: ONDANSETRON HCL INJ/PF 4 MG/2 ML SDV IV PRN (09:20)
[2020-07-14] MEDS ORDERED: PROMETHAZINE HCL INJ 25 MG/1 ML VIAL IV PRN (09:20)
[2020-07-14] MEDS ORDERED: MEPERIDINE HCL/PF INJ 25 MG/1 ML DISP.SYRIN IV PRN (09:20)
[2020-07-14] MEDS ORDERED: FENTANYL CITRATE INJ/PF 100 MCG/2 ML AMPUL IV PRN ×3 (09:20)
[2020-07-14] MEDS ORDERED: VANCOMYCIN HCL INJ 1000 MG VIAL ONE (10:18)
--- NOTE | 2020-07-14 11:17 | Operative Report ---
Operative Report DATE OF SURGERY: 07/14/20 PREOPERATIVE DIAGNOSIS: Left rotator cuff arthropathy POSTOPERATIVE DIAGNOSIS: Same OPERATION: Left reverse total shoulder arthroplasty SURGEON: VANNESSA HSU ANESTHESIA: GA COMPLICATIONS: None ESTIMATED BLOOD LOSS: 150cc PROCEDURE: Indication for above procedure: 85-year-old male with longstanding history of left rotator cuff arthropathy. Attempted conservative measures including multiple injections along with anti- inflammatory medication. After discussing treatment options including operative versus nonoperative intervention. Decision was made to proceed with operative treatment. Risk and benefits were explained patient verbalized understanding consented for surgical procedure. Procedure In Detail: Patient was seen and evaluated in the preoperative holding area. The LEFT upper extremity was initialized and marked. Patient received regional block under the direction of anesthesia in the preoperative holding area. A total of 2g of Ancef IV was given for bacterial prophylaxis. Patient was taken back to the operative room where transferred to the operative table and placed under general anesthesia. Once they were adequately anesthetized patient placed in the beachchair position. Cervical spine was placed in neutral position all bony prominences were padded including nonoperative upper extremity and bilateral lower extremity. A surgical team debriefing was performed ensuring all instrumentation was available, the surgical procedure was discussed with possible concerns reviewed. The upper extremity was prepped with ChloraPrep draped in a sterile fashion. A timeout was done identifying correct patient, procedure and extremity everyone in attendance agree with this and verbalized no concerns. Longitudinal skin incision was made just medial to the AC joint over the coracoid. Deltoid pectoral approach was then utilized. Cephalic vein was identified and retracted in a lateral direction tributaries within the deltoid were coagulated with cautery. The clavicle-pectoralis fascia was then opened. Subdeltoid recess was freed of surrounding adhesions. The biceps tendon was identified within the bicipital groove but retracted and scarred to the pectoralis. The proximal 25% of the pectoralis tendon was released. The arm was then externally rotated the circumflex vessels were tied off medially and laterally and coagulated to control bleeding. The subscapularis was then released from the lesser tuberosity and reflected medially. The inferior capsule was identified and the axillary nerve palpated. Inferior capsule was then released. A Fukuda retractor was placed within the posterior glenoid and circumferential capsular release was performed along the glenoid. Any remnant of the biceps tendon was excised as well. There was significant wear along the humerus with complete loss of supraspinatus. There was notable superior wear of the glenoid as per preoperative templating and thus it was decided patient would benefit from a augmented glenoid. Prior to proceeding with glenoid exposure begin initial humeral preparation. Intramedullary marielle was then placed just medial to the greater tuberosity to palpate the intramedullary canal. I then placed the aiming arm on the guide marielle. 30 degrees of version was then obtained. The guide was pinned into position and intramedullary reamer removed. Soft cut was then completed. Peripheral osteophytes medially were excised. The humeral cath was then placed. Posterior retractors placed along the glenoid with the arm internally rotated. Glenoid exposure was further provided with additional posterior capsular release. Any remanent labrum was excised. Utilizing the VIP guide the central portion of the glenoid was then drilled with the pin. This matched preoperative templating. It measured approximately 25 mm. The augmented reamer was then placed over the guidewire and reaming began. Good peripheral cancellous bone was obtained inferiorly. The overdrill was then placed through the glenoid and pin removed. The 25 mm post and 24 mm baseplate with 10 degrees full augment was then implanted. Initial fixation was obtained with a 5.5 x 48 mm cortex screw along the posterior inferior portion. Remaining screws were locked measuring 5.5 x 32 mm, 5.5 x 20 mm and 5.5 x 24 mm. A 39+4 lateral/24 glenosphere was then impacted into position. Wound was then copiously irrigated with pulse lavage and Betadine. Attention then turned to the humerus. The canal was then prepared increasing up to a size 8 humeral stem broach which gave good peripheral fit. There was mild posterior offset and thus reaming of the proximal portion was obtained with a posterior offset reamer. A size 8 humeral stem was then implanted. Prior to implantation of the stem for drill holes were placed along the lesser tuberosity to allow for subscapularis repair. A size 39+2 left suture cup was then implanted in position. I then began trialing initially with a +3 humeral insert this gave good stability throughout range of motion however there is slight instability with internal rotation and e xtension. A medium/3 9/+6 trial was attempted which gave good stability throughout all ranges of motion. Patient had full passive abduction/external rotation. Had easy passive range of motion to the back of his head. And thus a humeral insert medium/3 9/+6 polyethylene was implanted into position. Joint was reduced patient had good range of motion with stability throughout all ranges including abduction/external rotation and internal rotation and extension. Wound was then copiously irrigated with Betadine saline and additional liter of normal saline. A total of 1 g of vancomycin powder was placed within the wound. The subscapularis was closed with horizontal mattress #2 FiberWire through drill holes. This was then resecured with any remnant of the subscapularis with a #2 FiberWire. The deltopectoral interval was closed with 0 Vicryl suture. Subcutaneous tissues were then closed with interrupted 4-0 Monocryl and 2-0 Vicryl suture. Skin was closed with lisa. Acticoat dressing was placed. Sponge counts, instrument counts, needle counts were correct. Patient was then awoken from anesthesia. Transferred from the operating room table to the operating room stretcher. There was no intraoperative complications patient tolerated procedure well stable to PACU. Postoperative plan: Patient will be admitted for observation 24 hours. Patient will be started on enteric-coated aspirin 325 mg for DVT prophylaxis. Follow-up in the office in 2 weeks for wound check. IMPLANTS: ARTHREX modular posterior augmented MGS baseplate 25 mm, 24 mm baseplate 10 degree full augment Arthrex universe reverse humeral stem size 8, Arthrex universe reverse suture cup 39/+2 left, Arthrex universe reverse humeral insert medium/39/+6
[2020-07-14] MEDS ORDERED: ZOLPIDEM TARTRATE 5 MG TABLET PO PRN (11:18)
[2020-07-14] MEDS ORDERED: MAG HYDROX/AL HYDROX/SIMETH SUSP 30 ML UDCUP PO PRN (11:18)
[2020-07-14] MEDS ORDERED: OXYCODONE-ACETAMINOPHEN 5-325 MG TABLET PO PRN (11:22)
[2020-07-14] MEDS ORDERED: ROCURONIUM BROMIDE INJ 50 MG/5 ML VIAL IV ONE (11:51)
[2020-07-14] MEDS ORDERED: GLYCOPYRROLATE 1 MG/5 ML VIAL ONE (11:51)
[2020-07-14] MEDS ORDERED: METOPROLOL TARTRATE PF/INJ 5 MG/5 ML SDV IV ONE (11:51)
[2020-07-14] MEDS ORDERED: PHENYLEPHRINE HCL INJ/PF 10 MG/1 ML SDV ONE (11:51)
[2020-07-14] MEDS ORDERED: HYDRALAZINE HCL INJ/PF 20 MG/1 ML SDV ONE (11:51)
[2020-07-14] MEDS ORDERED: NEOSTIGMINE METHYLSULFATE 10 MG/10 ML VIAL ONE (11:51)
[2020-07-14] MEDS ORDERED: NORMAL SALINE INJ/PF 0.9% 10 ML SDV ONE (11:51)
[2020-07-14] MEDS ORDERED: LABETALOL HCL INJ 20 MG/4 ML DISP.SYRIN IV PRN (11:58)
[2020-07-14] MEDS ORDERED: CEFAZOLIN 2 GM/D5W RTU 2 GM/50 ML RTUPB IV SCH (12:00)
--- NOTE | 2020-07-14 12:41 | RADIOLOGY REPORT (SQ) ---
EXAM DESCRIPTION: SHOULDER LEFT 2 OR MORE VIEWS IMAGES COMPLETED DATE/TIME: 07/14/2020 12:19 pm REASON FOR STUDY: post op M25.812 OTHER SPECIFIED JOINT DISORDERS, LEFT SHOULDER M25.512 PAIN IN L EFT SHOULDER COMPARISON: 04/23/2020. NUMBER OF VIEWS: Two views. TECHNIQUE: Frontal and lateral images acquired of the left shoulder. LIMITATIONS: None. FINDINGS: MINERALIZATION: Normal. BONES: Reverse shoulder prosthesis. No acute fracture. No worrisome bone lesions. JOINTS: No dislocation. VISUALIZED LUNGS AND RIBS: No pneumothorax. No rib fracture. SOFT TISSUES: Expected surgical changes. Skin lisa. OTHER: No other significant finding. IMPRESSION: POSTOPERATIVE LEFT SHOULDER. NO UNEXPECTED FINDINGS. TECHNICAL DOCUMENTATION: JOB ID: [id number] 2010 [employer]- All Rights Reserved Reading location - IP/workstation name: [email or web address]
[2020-07-14 16:25] LABS: HEMATOCRIT 37.5 % (37.9-51.0); HEMOGLOBIN 12.8 g/dL (13.5-17.0); MEAN CORPUSCULAR HEMOGLOBIN 30.5 pg (27.0-33.4); MEAN CORPUSCULAR HGB CONC 34.2 g/dL (32.0-36.0); MEAN CORPUSCULAR VOLUME 89 fl (80-97); PLATELET COUNT 252 10^3/uL (150-450); RED CELL DISTRIBUTION WIDTH 14.4 % (11.5-14.0); WHITE BLOOD COUNT 18.6 10^3/uL (4.0-10.5)
[2020-07-14 16:53] LABS: ALBUMIN 4.2 g/dL (3.5-5.0); ALKALINE PHOSPHATASE 75 U/L (38-126); ANION GAP 17 (5-19); ASPARTATE AMINO TRANSFERASE 29 U/L (17-59); BILIRUBIN,DIRECT 0.4 mg/dL (0.0-0.4); BILIRUBIN,TOTAL 0.8 mg/dL (0.2-1.3); BLOOD UREA NITROGEN 14 mg/dL (7-20); CALCIUM 8.5 mg/dL (8.4-10.2); CARBON DIOXIDE 20 mmol/L (22-30); CHLORIDE 95 mmol/L (98-107); GLUCOSE 256 mg/dL (75-110); POTASSIUM 3.8 mmol/L (3.6-5.0)
[2020-07-14] MEDS ORDERED: DEXTROSE 50%-WATER 25 GM/50 ML DISP.SYRIN IV PRN ×2 (17:12)
[2020-07-14] MEDS ORDERED: GLUCAGON,HUMAN RECOMB 1 MG INJ IM PRN (17:12)
[2020-07-14] MEDS ORDERED: DEXTROSE 40% GEL 15 GM TUBE PO PRN ×2 (17:12)
[2020-07-14] MEDS: CEFAZOLIN SODIUM 2 GM in DEXTROSE 5%-WATER 100 ML IV SCH ×2 (17:33→23:23)
[2020-07-14] MEDS: SENNOSIDES/DOCUSATE 8.6-50 MG 1 EACH TABLET PO SCH (17:33)
[2020-07-14] MEDS ORDERED: (PENDING PHARMACY ID) (Brimonidine Tartrate [Alphagan P] 1 DROP) OP SCH (18:00)
[2020-07-14] MEDS ORDERED: ATORVASTATIN CALCIUM 40 MG TABLET PO SCH (18:00)
[2020-07-14] MEDS ORDERED: CYCLOSPORINE 0.05% OPH EMULSIO 0.4 ML DROPERETTE OP SCH (18:00)
[2020-07-14] MEDS: MAGNESIUM SULFATE/D5W 1 GM/100 ML RTUPB IV SCH ×2 (18:06→19:12)
--- NOTE | 2020-07-14 20:39 | PDOC CONSULTATION ---
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 Zhang today. Hospitalist service was consulted due to observation of atrial fibrillation and intraoperative.; Not captured by serial EKGs. Patient was seen on afternoon rounds with present. He is found resting in bed, comfortably, on room air. He reports fatigue and left shoulder discomfort but otherwise denies all complaints. He specifically denies chest pain, palpitations, and dyspnea. He defers all other questions to his . She confirms he is an established patient with Dr. Baker; saw Dr. Ike Esparza for the first time for his preop clearance. No known history of arrhythmias. She denies previous recommendations for chronic anticoagulation and believes that his metoprolol prescription is for blood pressure only. He has no new questions or concerns at this time. No concerns per nursing. Past Medical History Cardiac Medical History: Reports: Coronary Artery Disease, Myocardial Infarction - 14 YEARS AGO BYPASS SURG 2002, Hyperlipidema - ABOUT THREE YEARS AGO, Hypertension Denies: Atrial Fibrillation, Congestive Heart Failure Pulmonary Medical History: Reports: Sleep Apnea Denies: Asthma, Chronic Obstructive Pulmonary Disease (COPD), Respiratory Failure, Tuberculosis Neurological Medical History: Denies: Seizures Endocrine Medical History: Reports: Diabetes Mellitus Type 2 Denies: Hypothyroidism Malignancy Medical History: Reports: None GI Medical History: Reports: Gastroesophageal Reflux Disease, Hiatal Hernia - 9 Musculoskeltal Medical History: Reports: Arthritis Psychiatric Medical History: Reports: Post Traumatic Stress Disorder - DX A COUPLE OF YEARS Hematology: Reports: Anemia - B12 INJECTIONS 2008 Past Surgical History Past Surgical History: Reports: Coronary Artery Bypass Graft, Tonsillectomy - A CHILD Social History Information Source: Patient, Relative Lives with: Family Smoking Status: Never Smoker Frequency of Alcohol Use: None Hx Recreational Drug Use: No Hx Prescription Drug Abuse: No - Advance Directive Resuscitation Status: Full Code Family History Family History: Reviewed & Not Pertinent Parental Family History Reviewed: Yes Children Family History Reviewed: Yes Sibling(s) Family History Reviewed.: Yes Medication/Allergy Home Medications: Aspirin [Aspirin EC] 81 mg PO QPM 12/14/13 Metoprolol Succinate [Toprol Xl 50 mg Tab.sr] 50 mg PO DAILY 12/14/13 Timolol [Betimol] 1 drop OP DAILY 12/14/13 Allopurinol [Zyloprim 100 mg Tablet] 100 mg PO BID 03/07/17 Atorvastatin Calcium 40 mg PO QHS 03/07/17 Latanoprost [Xalatan 0.005% Oph Soln 2.5 ml] 1 drop OP QHS 03/07/17 Sitagliptin Phos/Metformin HCl [Janumet 50-1,000 mg Tablet] 1 tab PO BID 03/07/17 Brimonidine Tartrate [Alphagan P] 1 drop OP BID 10/15/17 Diclofenac Sodium [Voltaren] 100 gm TP PRN PRN 06/29/18 Hydrochlorothiazide 12.5 mg PO DAILY 06/29/18 Omeprazole Magnesium [Prilosec Otc] 20 mg PO DAILY 06/29/18 Aspirin [Aspirin 325 mg Tablet] 325 mg PO DAILY #21 pkg 07/14/20 Cyanocobalamin (Vitamin B-12) [Vitamin B-12] 1,000 mcg PO DAILY 07/14/20 Oxycodone HCl/Acetaminophen [Percocet 5-325 mg Tablet] 1 tab PO Q6 PRN #25 tab 07/14/20 Allergies/Adverse Reactions: No Known Allergies Allergy (Verified 07/14/20 06:55) Review of Systems Constitutional: ABSENT: chills, fever(s), headache(s), weight gain, weight loss Eyes: ABSENT: visual disturbances Ears: ABSENT: hearing changes Cardiovascular: ABSENT: chest pain, dyspnea on exertion, edema, orthropnea, palpitations Respiratory: ABSENT: cough, hemoptysis Gastrointestinal: ABSENT: abdominal pain, constipation, diarrhea, hematemesis, hematochezia, nausea, vomiting Genitourinary: ABSENT: dysuria, hematuria Musculoskeletal: PRESENT: as per HPI Integumentary: ABSENT: rash, wounds Neurological: ABSENT: abnormal gait, abnormal speech, confusion, dizziness, focal weakness, syncope Psychiatric: ABSENT: anxiety, depression, homidical ideation, suicidal ideation Endocrine: ABSENT: cold intolerance, heat intolerance, polydipsia, polyuria Hematologic/Lymphatic: ABSENT: easy bleeding, easy bruising Physical Exam Vital Signs: Temp Pulse Resp BP Pulse Ox 97.3 F 68 17 98/49 L 91 L 07/14/20 20:00 07/14/20 20:00 07/14/20 20:00 07/14/20 20:00 07/14/20 20:00 Intake & Output 07/13/20 07/14/20 07/15/20 06:59 06:59 06:59 Intake Total 0 2140 Output Total 450 Balance 0 1690 Weight 80 kg General appearance: PRESENT: no acute distress, cooperative, well-developed, well-nourished - Overweight Head exam: PRESENT: atraumatic, normocephalic Eye exam: PRESENT: conjunctiva pink, EOMI, PERRLA. ABSENT: scleral icterus Mouth exam: PRESENT: moist, tongue midline Respiratory exam: PRESENT: clear to auscultation mony, symmetrical, unlabored, other - Room air. ABSENT: rales, rhonchi, wheezes Cardiovascular exam: PRESENT: RRR, +S1, +S2. ABSENT: diastolic murmur, rubs, sy stolic murmur Pulses: PRESENT: normal dorsalis pedis pul Vascular exam: PRESENT: normal capillary refill Extremities exam: PRESENT: full ROM, tenderness - Left shoulder. ABSENT: calf tenderness, clubbing, pedal edema Neurological exam: PRESENT: alert, awake, oriented to person, oriented to place, oriented to time, oriented to situation, CN II-XII grossly intact, other - Fatigued. ABSENT: motor sensory deficit Psychiatric exam: PRESENT: appropriate affect, normal mood. ABSENT: homicidal ideation, suicidal ideation Skin exam: PRESENT: dry, warm. ABSENT: cyanosis, rash Results Laboratory Results: 07/14/20 16:00 07/14/20 16:00 07/14/20 07/14/20 07/14/20 06:30 06:30 07:08 WBC RBC Hgb Hct MCV MCH MCHC RDW Plt Count Sodium Potassium Cancelled Chloride Carbon Dioxide Anion Gap BUN Creatinine Est GFR ( Amer) Glucose Cancelled Calcium Magnesium Total Bilirubin AST Alkaline Phosphatase Total Protein Albumin Blood Type Cancelled AB POSITIVE Antibody Screen Cancelled NEGATIVE 07/14/20 07/14/20 07/14/20 07:08 16:00 16:00 WBC 18.6 H RBC 4.20 L Hgb 12.8 L Hct 37.5 L MCV 89 MCH 30.5 MCHC 34.2 RDW 14.4 H Plt Count 252 Sodium 131.8 L Potassium 4.1 3.8 Chloride 95 L Carbon Dioxide 20 L Anion Gap 17 BUN 14 Creatinine 0.87 Est GFR ( Amer) > 60 Glucose 155 H 256 H Calcium 8.5 Magnesium 0.9 L* Total Bilirubin 0.8 AST 29 Alkaline Phosphatase 75 Total Protein 7.0 Albumin 4.2 Blood Type Antibody Screen Impressions: Shoulder X-Ray 07/14/20 11:21 IMPRESSION: POSTOPERATIVE LEFT SHOULDER. NO UNEXPECTED FINDINGS. Assessment and Plan - Diagnosis (1) PAF (paroxysmal atrial fibrillation) Is this a current diagnosis for this admission?: Yes Plan: Per operative team, patient was noted to be briefly in atrial fibrillation. Not captured by EKG or telemetry strips. Per family, no known history of the same. We will replace magnesium. Monitor on telemetry. Continue home dose metoprolol. Hold on full dose anticoagulation for now. However, [id number] Score is 6 Will discuss with patient's established assistant infant teacher, Dr. Baker. Continue full dose aspirin as per orthopedist (2) Hypomagnesemia Is this a current diagnosis for this admission?: Yes Plan: Mag 0.9 IV replacement Follow up magnesium level in AM (3) CAD (coronary artery disease) Is this a current diagnosis for this admission?: Yes Plan: Currently chest pain-free. No concerning findings on EKG or telemetry upon my review. Continue home dose atorvastatin and metoprolol. Continue full dose aspirin. (4) Hypertension Is this a current diagnosis for this admission?: Yes Plan: Currently mild hypotension; likely secondary to opiates the patient is opiate toño. Holding parameters on metoprolol. (5) GERD (gastroesophageal reflux disease) Is this a current diagnosis for this admission?: Yes Plan: Continue PPI (6) DM2 (diabetes mellitus, type 2) Is this a current diagnosis for this admission?: Yes Plan: Holding oral medications while admitted. Patient is placed on a consistent carb diet. Accu-Cheks before meals and at bedtime with Humalog for sliding scale coverage. Hypoglycemia protocol in place. - Time Time Spent with patient: 35 or more minutes Medications reviewed and adjusted accordingly: Yes Anticipated Discharge Disposition: Home with Home Health Anticipated Discharge Timeframe: per Orthopedic team
--- NOTE | 2020-07-14 21:27 | EKG REPORT ---
SEVERITY:- ABNORMAL ECG - SINUS RHYTHM LEFT ATRIAL ABNORMALITY RBBB AND LPFB : Confirmed by: Wesly Louie MD 14-Jul-2020 21:27:07
[2020-07-14] MEDS: INSULIN LISPRO 100 UNIT/ML 3 ML VIAL SUBCUT SCH (21:34)
[2020-07-15] MEDS: CEFAZOLIN SODIUM 2 GM in DEXTROSE 5%-WATER 100 ML IV SCH ×2 (05:59→11:07)
[2020-07-15 06:26] LABS: ABSOLUTE BASOPHILS # (AUTO) 0.1 10^3/uL (0.0-0.2); ABSOLUTE LYMPHOCYTES (AUTO) 1.4 10^3/uL (0.5-4.7); ABSOLUTE MONOCYTES (AUTO) 1.9 10^3/uL (0.1-1.4); ABSOLUTE NEUT (AUTO) 12.2 10^3/uL (1.7-8.2); BASOPHILS % (AUTO) 0.4 % (0-2); HEMATOCRIT 32.2 % (37.9-51.0); HEMOGLOBIN 11.3 g/dL (13.5-17.0); LYMPHOCYTES % (AUTO) 9.2 % (13-45); MEAN CORPUSCULAR HEMOGLOBIN 30.8 pg (27.0-33.4); MEAN CORPUSCULAR VOLUME 88 fl (80-97); MONOCYTES % (AUTO) 12.3 % (3-13); PLATELET COUNT 227 10^3/uL (150-450); RED BLOOD COUNT 3.66 10^6/uL (4.35-5.55); RED CELL DISTRIBUTION WIDTH 14.4 % (11.5-14.0); SEGMENTED NEUTROPHILS % (AUTO) 78.1 % (42-78); TOTAL CELLS COUNTED % (AUTO) 100 %; WHITE BLOOD COUNT 15.7 10^3/uL (4.0-10.5)
[2020-07-15 06:35] LABS: PROTHROMBIN TIME 13.4 SEC (11.4-15.4)
[2020-07-15 06:48] LABS: ANION GAP 12 (5-19); BLOOD UREA NITROGEN 17 mg/dL (7-20); CALCIUM 8.8 mg/dL (8.4-10.2); CARBON DIOXIDE 25 mmol/L (22-30); CHLORIDE 93 mmol/L (98-107); GLUCOSE 178 mg/dL (75-110); POTASSIUM 4.5 mmol/L (3.6-5.0)
[2020-07-15] MEDS: INSULIN LISPRO 100 UNIT/ML 3 ML VIAL SUBCUT SCH ×2 (07:50→11:06)
--- NOTE | 2020-07-15 07:53 | PDOC PROGRESS REPORT ---
Subjective Progress Note for:: 07/15/20 Subjective:: Patient seen this morning. Doing well, no overnight events, pain well controlled. Ready for discharge home today. Reason For Visit: M25.812 OTHER SPECIFIED JOINT DISORDERS, LEFT SHOU Physical Exam Vital Signs: Temp Pulse Resp BP Pulse Ox 97.8 F 75 18 123/58 L 95 07/15/20 03:22 07/15/20 07:00 07/15/20 03:22 07/15/20 03:22 07/15/20 03:22 Intake & Output 07/14/20 07/15/20 07/16/20 06:59 06:59 06:59 Intake Total 0 2440 Output Total 670 Balance 0 1770 Weight 86.5 kg Physical Exam: No acute distress, alert and orient x3 Left upper extremity Upper extremity sensation grossly intact to radial median and ulnar nerve. upper extremity motor function grossly intact to radian median ulnar nerve AIN a nd PIN Pulses 2+, capillary refill less than 2 seconds Incision clean dry and intact Compartments soft, no tenderness to palpation Results Laboratory Results: 07/15/20 05:55 07/15/20 05:55 07/14/20 07/14/20 07/14/20 07:08 16:00 16:00 WBC 18.6 H RBC 4.20 L Hgb 12.8 L Hct 37.5 L MCV 89 MCH 30.5 MCHC 34.2 RDW 14.4 H Plt Count 252 Seg Neutrophils % Sodium 131.8 L Potassium 3.8 Chloride 95 L Carbon Dioxide 20 L Anion Gap 17 BUN 14 Creatinine 0.87 Est GFR ( Amer) > 60 Glucose 256 H Calcium 8.5 Magnesium 0.9 L* Total Bilirubin 0.8 AST 29 Alkaline Phosphatase 75 Total Protein 7.0 Albumin 4.2 TSH Blood Type AB POSITIVE Antibody Screen NEGATIVE 07/15/20 07/15/20 07/15/20 05:55 05:55 05:55 WBC 15.7 H RBC 3.66 L Hgb 11.3 L Hct 32.2 L MCV 88 MCH 30.8 MCHC 35.0 RDW 14.4 H Plt Count 227 Seg Neutrophils % 78.1 H Sodium 130.2 L Potassium 4.5 Chloride 93 L Carbon Dioxide 25 Anion Gap 12 BUN 17 Creatinine 0.85 Est GFR ( Amer) > 60 Glucose 178 H Calcium 8.8 Magnesium 1.6 Total Bilirubin AST Alkaline Phosphatase Total Protein Albumin TSH 1.29 Blood Type Antibody Screen Impressions: Shoulder X-Ray 07/14/20 11:21 IMPRESSION: POSTOPERATIVE LEFT SHOULDER. NO UNEXPECTED FINDINGS. Assessment & Plan - Diagnosis (1) Status post reverse total replacement of left shoulder Is this a current diagnosis for this admission?: Yes Plan: -NWB LUE -Maintain dressing until seen in the office Continue sling until seen in the office Follow instructions on discharge paperwork Follow-up with Dr. Zhang per discharge paperwork Take pain medication as prescribed Discharge home today after cleared by medicine. - Time Time Spent with patient: Less than 15 minutes
[2020-07-15] MEDS: SENNOSIDES/DOCUSATE 8.6-50 MG 1 EACH TABLET PO SCH (09:08)
[2020-07-15] MEDS ORDERED: HYDROCHLOROTHIAZIDE 12.5 MG TABLET PO SCH (10:00)
[2020-07-15] MEDS ORDERED: PANTOPRAZOLE SODIUM 20 MG TABLET.DR PO SCH (10:00)
[2020-07-15] MEDS ORDERED: (PENDING PHARMACY ID) (Hydrochlorothiazide [Hydrochlorothiazide] 12.5 MG) PO SCH (10:00)
[2020-07-15] MEDS ORDERED: (PENDING PHARMACY ID) (Timolol [Betimol] 1 DROP) OP SCH (10:00)
[2020-07-15] MEDS ORDERED: TIMOLOL MALEATE 0.25% OPH SOLN 5 ML OU SCH (10:00)
[2020-07-15] MEDS ORDERED: ASPIRIN 325 MG TABLET, ENT COATED PO SCH (10:00)
[2020-07-15] MEDS ORDERED: METOPROLOL SUCCINATE 50 MG TAB.SR.24H PO SCH ×2 (10:00)
[2020-07-15 13:15] VITALS: BP 118/56
--- NOTE | 2020-07-15 13:20 | PDOC PROGRESS REPORT ---
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 Zhang today. Hospitalist service was consulted due to observation of atrial fibrillation during the intraoperative period. Patient was seen on morning rounds. He is found resting in bed, comfortably, on room air. He reports left shoulder discomfort but otherwise states he is feeling well and ready to discharge home. He denies fever, chest pain, palpitations, dyspnea, abdominal pain and nausea. He has no questions or concerns at this time. Per nursing, patient has had multiple, short, episodes of atrial fibrillation overnight. Unfortunately, again not captured on EKG this morning. Did review telemetry strips and can confirm that the patient was in atrial fibrillation this morning; currently sinus. Reason For Visit: M25.812 OTHER SPECIFIED JOINT DISORDERS, LEFT SHOU Physical Exam Vital Signs: Temp Pulse Resp BP Pulse Ox 97.8 F 75 18 98/49 L 95 07/15/20 10:00 07/15/20 08:02 07/15/20 08:02 07/15/20 08:02 07/15/20 08:02 Intake & Output 07/14/20 07/15/20 07/16/20 06:59 06:59 06:59 Intake Total 0 2440 237 Output Total 670 Balance 0 1770 237 Weight 86.5 kg General appearance: PRESENT: no acute distress, cooperative, well-developed, well-nourished - overweight Head exam: PRESENT: atraumatic, normocephalic Eye exam: PRESENT: conjunctiva pink, EOMI, PERRLA. ABSENT: scleral icterus Mouth exam: PRESENT: moist, tongue midline Respiratory exam: PRESENT: clear to auscultation mony, symmetrical, unlabored. ABSENT: rales, rhonchi, wheezes Cardiovascular exam: PRESENT: RRR, other - PAF by telemetry. ABSENT: diastolic murmur, rubs, systolic murmur Vascular exam: PRESENT: normal capillary refill Extremities exam: PRESENT: full ROM, tenderness - left shoulder. ABSENT: calf tenderness, clubbing, pedal edema Neurological exam: PRESENT: alert, awake, oriented to person, oriented to place, oriented to time, oriented to situation, CN II-XII grossly intact. ABSENT: motor sensory deficit Psychiatric exam: PRESENT: appropriate affect, normal mood. ABSENT: homicidal ideation, suicidal ideation Skin exam: PRESENT: dry, warm. ABSENT: cyanosis, rash Results Laboratory Results: 07/15/20 05:55 07/15/20 05:55 07/14/20 07/14/20 07/15/20 16:00 16:00 05:55 WBC 18.6 H 15.7 H RBC 4.20 L 3.66 L Hgb 12.8 L 11.3 L Hct 37.5 L 32.2 L MCV 89 88 MCH 30.5 30.8 MCHC 34.2 35.0 RDW 14.4 H 14.4 H Plt Count 252 227 Seg Neutrophils % 78.1 H Sodium 131.8 L Potassium 3.8 Chloride 95 L Carbon Dioxide 20 L Anion Gap 17 BUN 14 Creatinine 0.87 Est GFR ( Amer) > 60 Glucose 256 H Calcium 8.5 Magnesium 0.9 L* Total Bilirubin 0.8 AST 29 Alkaline Phosphatase 75 Total Protein 7.0 Albumin 4.2 TSH 07/15/20 07/15/20 05:55 05:55 WBC RBC Hgb Hct MCV MCH MCHC RDW Plt Count Seg Neutrophils % Sodium 130.2 L Potassium 4.5 Chloride 93 L Carbon Dioxide 25 Anion Gap 12 BUN 17 Creatinine 0.85 Est GFR ( Amer) > 60 Glucose 178 H Calcium 8.8 Magnesium 1.6 Total Bilirubin AST Alkaline Phosphatase Total Protein Albumin TSH 1.29 Impressions: Shoulder X-Ray 07/14/20 11:21 IMPRESSION: POSTOPERATIVE LEFT SHOULDER. NO UNEXPECTED FINDINGS. Assessment and Plan - Diagnosis (1) PAF (paroxysmal atrial fibrillation) Is this a current diagnosis for this admission?: Yes Plan: Multiple, short, episodes of a. fib overnight noted on telemetry. Chemistry and TSH are acceptable. Continue home dose metoprolol. [id number] Score is 6 Discussed w/ Dr. Lechuga. He requests half dose Eliquis x 2 weeks to prevent post operative complications (postop bleeding/hematoma). Patient should follow-up with his established tape recorder mechanic, Dr. Monzon, at earliest available appointment. (2) Hypomagnesemia Is this a current diagnosis for this admission?: Yes Plan: Replete (3) CAD (coronary artery disease) Is this a current diagnosis for this admission?: Yes Plan: Currently chest pain-free. No concerning findings on EKG or telemetry upon my review. Continue home dose atorvastatin and metoprolol. Start low dose Eliquis. (4) Hypertension Is this a current diagnosis for this admission?: Yes Plan: Currently mild hypotension; likely secondary to opiates the patient is opiate toño. Continue home dose metoprolol Discontinue HCTZ r/t hyponatremia (5) GERD (gastroesophageal reflux disease) Is this a current diagnosis for this admission?: Yes Plan: Continue PPI (6) DM2 (diabetes mellitus, type 2) Is this a current diagnosis for this admission?: Yes Plan: Holding oral medications while admitted. Patient is placed on a consistent carb diet. Accu-Cheks before meals and at bedtime with Humalog for sliding scale coverage. Hypoglycemia protocol in place. Resume outpatient regimen at discharge. (7) Hyponatremia Is this a current diagnosis for this admission?: Yes Plan: Na 130.2 today Appears to have chronic, mild hyponatremia. Recommend discontinuing HCTZ. - Plan Summary Summary: Patient is medically cleared for discharge. Recommend close outpatient cardiology follow up. - Time Time Spent with patient: 35 or more minutes Medications reviewed and adjusted accordingly: Yes Anticipated Discharge Disposition: Home, Self Care Anticipated Discharge Timeframe: Today, per ortho
--- NOTE | 2020-07-15 16:31 | EKG REPORT ---
SEVERITY:- ABNORMAL ECG - PROBABLE SINUS RHYTHM WITH FIRST DEGREE AV BLOCK RIGHT BUNDLE BRANCH BLOCK BASELINE ARTEFACT : Confirmed by: Wesly Louie MD 15-Jul-2020 16:31:09
[2020-07-15] MEDS ORDERED: LATANOPROST 0.005% OPH SOLN 2.5 ML OU SCH (22:00)
== END 2020-07-15 14:05 | disposition home or self-care (01) | DRG 483 ==
LOC: INOR 06:03 → EDSTATUS 08:00 → 4S 15:36
PROVIDERS: ADMIT Orthopaedic Surgery; ATTEND Orthopaedic Surgery
PROC: 0RRK00Z Replacement of Left Shoulder Joint with Reverse Ball and Socket Synthetic Substitute, Open Approach (ICD-10-PCS; principal; 2020-07-14 08:00)
DX: M25.812 Other specified joint disorders, left shoulder (principal); M25.512 Pain in left shoulder; I25.10 Atherosclerotic heart disease of native coronary artery without angina pectoris; I10 Essential (primary) hypertension; E11.9 Type 2 diabetes mellitus without complications; K21.9 Gastro-esophageal reflux disease without esophagitis; I69.398 Other sequelae of cerebral infarction; E78.5 Hyperlipidemia, unspecified; H53.8 Other visual disturbances; F43.10 Post-traumatic stress disorder, unspecified; I48.0 Paroxysmal atrial fibrillation; E83.42 Hypomagnesemia; I25.2 Old myocardial infarction; Z95.1 Presence of aortocoronary bypass graft; Z79.891 Long term (current) use of opiate analgesic; Z79.82 Long term (current) use of aspirin; Z79.899 Other long term (current) drug therapy; Z86.14 Personal history of Methicillin resistant Staphylococcus aureus infection
CPT/HCPCS: 01630; 36415; 80048; 80053; 82947; 82962; 83735; 84132; 84443; 85025; 85027; 85610; 86850; 86900; 86901; 88305; 88311; 93005; 93010; 94799; J0360; J0690; J1100; J1741; J1815; J2370; J2405; J2704; J2710; J2795; J3010; J3370; J3475; J3490; J7050; J7060

== ENCOUNTER 2020-09-02 10:29 | Inpatient (IN) | payer MEDICARE, OTHER ==
--- NOTE | 2020-09-02 10:38 | ER Document Report ---
ED General - General Chief Complaint: Fall Stated Complaint: FALL/HIP PAIN Time Seen by Provider: 09/02/20 10:33 Notes: He 5-year-old male with hypertension, and who takes Eliquis for unknown reasons presents with a fall on his face with left hip pain and headache after falling at physical therapy. GCS 15 blood pressure triple over triple, mild left groin pain with movement no numbness no tingling no LOC minimal neck pain. C-collar placed by EMS. TRAVEL OUTSIDE OF THE [place] IN LAST 30 DAYS: No - Related Data Allergies/Adverse Reactions: No Known Allergies Allergy (Verified 07/14/20 06:55) Past Medical History - General Information source: Patient - Social History Smoking Status: Former Smoker Family History: Reviewed & Not Pertinent - Past Medical History Cardiac Medical History: Reports: Hx Coronary Artery Disease, Hx Heart Attack - 14 YEARS AGO BYPASS SURG 2002, Hx Hypercholesterolemia - ABOUT THREE YEARS AGO, Hx Hypertension Denies: Hx Atrial Fibrillation, Hx Congestive Heart Failure, Hx Peripheral Vascular Disease, Hx Pulmonary Embolism, Hx Heart Murmur Pulmonary Medical History: Reports: Hx Sleep Apnea Denies: Hx Asthma, Hx Bronchitis, Hx COPD, Hx Pneumonia, Hx Respiratory Failure, Hx Tuberculosis Neurological Medical History: Reports: 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 Denies: Hx Seizures, Hx Parkinson's Disease Endocrine Medical History: Reports: Hx Diabetes Mellitus Type 2. Denies: Hx Graves' Disease, Hx Hyperthyroidism, Hx Hypothyroidism Renal/ Medical History: Malignancy Medical History: Denies Hx Leukemia, Denies Hx Lung Cancer GI Medical History: Reports: Hx Gastroesophageal Reflux Disease, Hx Hiatal Herni a - 1958. Denies: Hx Crohn's Disease, Hx Irritable Bowel, Hx Liver Failure, Hx Pancreatitis, Hx Ulcer Musculoskeletal Medical History: Reports Hx Arthritis, Denies Hx Fibromyalgia, Denies Hx Multiple Sclerosis, Denies Hx Systemic Lupus Erythematosus Psychiatric Medical History: Reports: Hx Post Traumatic Stress Disorder - DX A COUPLE OF YEARS Denies: Hx Bipolar Disorder, Hx Dementia, Hx Depression, Hx Schizophrenia Traumatic Medical History: Denies: Hx Fractures Infectious Medical History: Denies: Hx HIV Past Surgical History: Reports: Hx Cardiac Surgery - ABOUT SIX YEARS, Hx Coronary Artery Bypass Graft, Hx Open Heart Surgery - 2002, 5 VESSEL, Hx Tonsillectomy - A CHILD. Denies: Hx Adenoidectomy, Hx Appendectomy, Hx Bowel Surgery, Hx Cholecystectomy, Hx Colostomy, Hx Gastric Bypass Surgery, Hx Herniorrhaphy, Hx Pacemaker - Immunizations Hx Diphtheria, Pertussis, Tetanus Vaccination: Yes - SEP 2017 Hx Pneumococcal Vaccination: 06/25/17 Review of Systems - Review of Systems Notes: REVIEW OF SYSTEMS GEN: Denies fever, chills, weight loss ENT: Denies sore throat, nasal discharge, ear pain EYES: Denies blurry vision, eye pain, discharge CV: Denies chest pain, palpitations, edema RESP: Denies cough, shortness of breath, wheezing GI: Denies abdominal pain, nausea, vomiting, diarrhea MSK: Left hip pain and SKIN: Denies rash, skin lesions LYMPH: Denies swollen glands/lymph nodes NEURO: Mild headache, denies focal weakness or numbness, dizziness PSYCH: Denies depression, suicidal or homicidal ideation PHYSICAL EXAMINATION General: No acute distress, well-nourished Head: Abrasion versus laceration left upper forehead covered with bandage normocephalic ENT: Mouth normal, oropharynx moist, no exudates or tonsillar enlargement Eyes: Conjunctiva normal, pupils equal, lids normal Neck: No JVD, supple, no guarding CVS: Normal rate, regular rhythm, no murmurs Resp: No resp distress, equal and normal breath sounds bilaterally GI: Nondistended, soft, no tenderness to palpation, no rebound or guarding Ext: Pain on range of motion of the left hip, no femur tenderness, compartments soft pulses good. Left hip is slightly externally rotated and the entire left leg is shortened by about 1 inch. T Back: No CVA or midline TTP Skin: No rash, warm Lymphatic: No lymphadeopathy noted Neuro: Awake, alert. Face symmetric. GCS 15. Physical Exam - Vital signs Vitals: Resp Pulse Ox 21 H 94 09/02/20 10:42 09/02/20 10:42 Course - Re-evaluation Re-evalutation: 09/02/20 10:58 Fall from standing on blood thinners with evidence of head traumaGCS [address] head and C-spine Appears isolated left pelvic/hip traumax-ray shows hip fracture without any pelvic fracture Chest x-ray pending. Will get EKG and labs but will be admitted to hospitalist given hip fracture algorithm discussed with MANAGER ROUTE who will accept Kyleigh Vail 09/02/20 14:38 Discussed with Yared who will consult. Discussed with OB who will admit. Discussed with patient. EKG shows sinus rhythm. - Vital Signs Vital signs: Temp Pulse Resp BP Pulse Ox 98.7 F 70 16 205/108 H 93 09/02/20 11:06 09/02/20 10:59 09/02/20 10:59 09/02/20 10:59 09/02/20 11:06 - Laboratory Results Result Diagrams: 09/02/20 11:40 09/02/20 11:40 Critical Laboratory Results Reviewed: No Critical Results - Radiology Results Critical Radiology Results Reviewed: No Critical Results - EKG Interpretation by Me EKG shows normal: Sinus rhythm Rate: Normal Rhythm: NSR Roberts/QRS: RBBB When compared to previous EKG there are: No significant change Discharge - Discharge Clinical Impression: Closed left hip fracture Qualifiers: Encounter type: initial encounter Qualified Code(s): S72.002A - Fracture of unspecified part of neck of left femur, initial encounter for closed fracture Condition: Good Disposition: ADMITTED INPATIENT Admitting Provider: Monique (Hospitalist) Unit Admitted: Medical Floor
--- NOTE | 2020-09-02 10:53 | RADIOLOGY REPORT (SQ) ---
EXAM DESCRIPTION: PELVIS AP IMAGES COMPLETED DATE/TIME: 09/02/2020 10:40 am REASON FOR STUDY: trauma COMPARISON: None. NUMBER OF VIEWS: One view TECHNIQUE: AP Pelvis LIMITATIONS: None. FINDINGS: MINERALIZATION: Decreased. HIPS: Left transcervical femur fracture with mild impaction. No dislocation. Degenerative changes a t the hips with mild osteophytosis and relatively well-maintained joint spaces. PELVIS AND SACRUM: No acute fracture or dislocation. No worrisome bone lesions. PUBIS AND ISCHIUM: No acute fracture. LOWER LUMBAR SPINE: Lower lumbar spondylosis and facet arthropathy. SOFT TISSUES: Vascular calcifications. OTHER: No other significant finding. IMPRESSION: Transcervical left femur fracture with mild impaction. TECHNICAL DOCUMENTATION: JOB ID: [id number] 2010 [employer]- All Rights Reserved Reading location - IP/workstation name: [email or web address]
--- NOTE | 2020-09-02 11:19 | RADIOLOGY REPORT (SQ) ---
EXAM DESCRIPTION: CT HEAD WITHOUT IMAGES COMPLETED DATE/TIME: 09/02/2020 11:02 am REASON FOR STUDY: trauma COMPARISON: 07/02/2018 TECHNIQUE: Axial images acquired through the brain without intravenous contrast. Images reviewed wi th bone, brain and subdural windows. Additional sagittal and coronal reconstructions were generated. Images stored on PACS. All CT scanners at this facility use dose modulation, iterative reconstruction, and/or weight based d osing when appropriate to reduce radiation dose to as low as reasonably achievable (ALARA). [facility]: Dose Right [facility]: CareDose [facility]: Dose Right [facility]: Teradose 4D [facility]: [employer] RADIATION DOSE: CT Rad equipment meets quality standard of care and radiation dose reduction techniq ues were employed. CTDIvol: 53.2 mGy. DLP: 1017 mGy-cm. mGy. LIMITATIONS: None. FINDINGS: VENTRICLES: Prominent. CEREBRUM: No masses. No hemorrhage. No midline shift. Areas of low density in the white matter mos t likely due to chronic micro-vascular ischemic change. More focal areas of hypoattenuation within t he bilateral basal ganglia compatible with prior lacunar infarcts or prominent perivascular spaces, s table. No evidence for acute large vascular territory infarction. CEREBELLUM: No masses. No hemorrhage. No alteration of density. No evidence for acute infarction. EXTRAAXIAL SPACES: Mild age-related involutional change. No fluid collections. No masses. ORBITS AND GLOBE: No intra- or extraconal masses. Normal contour of globe without masses. Prior cat aract surgery. CALVARIUM: No fracture. PARANASAL SINUSES: No fluid or mucosal thickening. SOFT TISSUES: No mass or hematoma. OTHER: No other significant finding. IMPRESSION: MILD CHRONIC CHANGES OF ATROPHY AND MICROVASCULAR ISCHEMIA. NO ACUTE PROCESS. EVIDENCE OF ACUTE STROKE: NO. TECHNICAL DOCUMENTATION: JOB ID: [id number] Quality ID # [id number]: Final reports with documentation of one or more dose reduction techniques (e.g., Au tomated exposure control, adjustment of the mA and/or kV according to patient size, use of iterative reconstruction technique) 2010 [employer]- All Rights Reserved Reading location - IP/workstation name: [email or web address]
--- NOTE | 2020-09-02 11:24 | RADIOLOGY REPORT (SQ) ---
EXAM DESCRIPTION: CT CERVICAL SPINE WITHOUT IMAGES COMPLETED DATE/TIME: 09/02/2020 11:02 am REASON FOR STUDY: trauma COMPARISON: 07/02/2018 TECHNIQUE: Axial images acquired through the cervical spine without intravenous contrast. Images re viewed with lung, soft tissue and bone windows. Reconstructed coronal and sagittal MPR images review ed. Images stored on PACS. All CT scanners at this facility use dose modulation, iterative reconstruction, and/or weight based d osing when appropriate to reduce radiation dose to as low as reasonably achievable (ALARA). [facility]: Dose Right [facility]: CareDose [facility]: Dose Right [facility]: Teradose 4D [facility]: [employer] RADIATION DOSE: CT Rad equipment meets quality standard of care and radiation dose reduction techniq ues were employed. CTDIvol: 19.2 mGy. DLP: 368 mGy-cm. mGy. LIMITATIONS: None. FINDINGS: ALIGNMENT: Anatomic. MINERALIZATION: Normal. VERTEBRAL BODIES: No fractures or dislocation. DISCS: Multilevel disc space narrowing with osteophytes. Significant degenerative changes at the leslie antoaxial joint with prominent dorsal pannus posterior to the odontoid. FACETS, LATERAL MASSES, POSTERIOR ELEMENTS: Facet arthropathy with facet fusion at C2-3 on the right. . No fractures. No dislocation. No acute findings. HARDWARE: None in the spine. VISUALIZED RIBS: No fractures. LUNG APICES AND SOFT TISSUES: No pneumothorax. Vascular calcifications. OTHER: No other significant finding. IMPRESSION: CHRONIC DEGENERATIVE CHANGES. NO ACUTE FINDINGS. TECHNICAL DOCUMENTATION: JOB ID: [id number] Quality ID # [id number]: Final reports with documentation of one or more dose reduction techniques (e.g., Au tomated exposure control, adjustment of the mA and/or kV according to patient size, use of iterative reconstruction technique) 2010 [employer]- All Rights Reserved Reading location - IP/workstation name: [email or web address]
--- NOTE | 2020-09-02 11:51 | RADIOLOGY REPORT (SQ) ---
EXAM DESCRIPTION: HIP LEFT AP/LATERAL IMAGES COMPLETED DATE/TIME: 09/02/2020 11:43 am REASON FOR STUDY: FX COMPARISON: Same day radiograph NUMBER OF VIEWS: Two views. TECHNIQUE: AP pelvis and additional cross-table lateralview of the left hip. LIMITATIONS: None. FINDINGS: MINERALIZATION: Decreased. LEFT HIP: Again seen is the transcervical left femur fracture with mild impaction. No dislocation of the femoral head. RIGHT HIP: No fracture or dislocation. No worrisome bone lesions. Limited views. Mild osteophytosis . PUBIS AND ISCHIUM: No fracture. SACRUM: No fracture or dislocation. No worrisome bone lesions. LOWER LUMBAR SPINE: Lumbar spondylosis. SOFT TISSUES: No findings. OTHER: No other significant finding. IMPRESSION: Transcervical left femur fracture with mild impaction. No dislocation. TECHNICAL DOCUMENTATION: JOB ID: [id number] 2010 [employer]- All Rights Reserved Reading location - IP/workstation name: [email or web address]
--- NOTE | 2020-09-02 12:06 | RADIOLOGY REPORT (SQ) ---
EXAM DESCRIPTION: CHEST SINGLE VIEW IMAGES COMPLETED DATE/TIME: 09/02/2020 11:02 am REASON FOR STUDY: trauma COMPARISON: 06/22/2020 EXAM PARAMETERS: NUMBER OF VIEWS: One view. TECHNIQUE: Single frontal radiographic view of the chest acquired. RADIATION DOSE: NA LIMITATIONS: None. FINDINGS: LUNGS AND PLEURA: No opacities, masses or pneumothorax. No pleural effusion. MEDIASTINUM AND HILAR STRUCTURES: Stable. HEART AND VASCULAR STRUCTURES: Borderline enlarged. BONES: Sternotomy changes. Partially visualized left she shoulder reverse arthroplasty. HARDWARE: Sternotomy. Left shoulder arthroplasty. OTHER: No other significant finding. IMPRESSION: No evidence of acute intrathoracic process. TECHNICAL DOCUMENTATION: JOB ID: [id number] 2010 [employer]- All Rights Reserved Reading location - IP/workstation name: [email or web address]
[2020-09-02 12:17] LABS: ABSOLUTE BASOPHILS # (AUTO) 0.1 10^3/uL (0.0-0.2); ABSOLUTE EOSINOPHILS # (AUTO) 0.2 10^3/uL (0.0-0.6); ABSOLUTE LYMPHOCYTES (AUTO) 1.3 10^3/uL (0.5-4.7); ABSOLUTE MONOCYTES (AUTO) 0.8 10^3/uL (0.1-1.4); BASOPHILS % (AUTO) 0.7 % (0-2); EOSINOPHILS % (AUTO) 1.8 % (0-6); HEMATOCRIT 33.9 % (37.9-51.0); HEMOGLOBIN 11.2 g/dL (13.5-17.0); LYMPHOCYTES % (AUTO) 12.1 % (13-45); MEAN CORPUSCULAR HEMOGLOBIN 28.2 pg (27.0-33.4); MEAN CORPUSCULAR HGB CONC 33.1 g/dL (32.0-36.0); MEAN CORPUSCULAR VOLUME 85 fl (80-97); MONOCYTES % (AUTO) 7.9 % (3-13); PLATELET COUNT 253 10^3/uL (150-450); RED BLOOD COUNT 3.98 10^6/uL (4.35-5.55); SEGMENTED NEUTROPHILS % (AUTO) 77.5 % (42-78); TOTAL CELLS COUNTED % (AUTO) 100 %; WHITE BLOOD COUNT 10.4 10^3/uL (4.0-10.5)
[2020-09-02 12:34] LABS: ANION GAP 8 (5-19); BLOOD UREA NITROGEN 10 mg/dL (7-20); CALCIUM 8.5 mg/dL (8.4-10.2); CARBON DIOXIDE 29 mmol/L (22-30); CHLORIDE 101 mmol/L (98-107); GLUCOSE 149 mg/dL (75-110); POTASSIUM 3.5 mmol/L (3.6-5.0)
[2020-09-02] MEDS ORDERED: HYDRALAZINE HCL INJ/PF 20 MG/1 ML SDV IV PRN (12:59)
[2020-09-02] MEDS ORDERED: METOPROLOL SUCCINATE 50 MG TAB.SR.24H PO ONE (13:51)
[2020-09-02] MEDS: METOPROLOL SUCCINATE 50 MG TAB.SR.24H PO SCH (14:25)
[2020-09-02] MEDS ORDERED: ENALAPRILAT DIHYDRATE INJ/PF 2.5 MG/2 ML SDV IV ONE (14:30)
[2020-09-02] MEDS ORDERED: HYDRALAZINE HCL INJ/PF 20 MG/1 ML SDV IV ONE (15:00)
[2020-09-02] MEDS ORDERED: IPRATROPIUM/ALBUTEROL 0.5-2.5 MG/3 ML AMPUL NEB PRN (15:04)
[2020-09-02] MEDS ORDERED: MAGNESIUM HYDROXIDE SUSP 30 ML UDCUP PO PRN (15:04)
[2020-09-02] MEDS ORDERED: ONDANSETRON 4 MG TAB.RAPDIS PO PRN (15:04)
[2020-09-02] MEDS ORDERED: POTASSIUM CHLORIDE 10 MEQ TABLET.ER PO ONE ×2 (15:10→17:25)
[2020-09-02] MEDS ORDERED: DEXTROSE 40% GEL 15 GM TUBE PO PRN ×2 (15:23)
[2020-09-02] MEDS ORDERED: DEXTROSE 50%-WATER 25 GM/50 ML DISP.SYRIN IV PRN ×2 (15:23)
[2020-09-02] MEDS ORDERED: GLUCAGON,HUMAN RECOMB 1 MG INJ IM PRN (15:23)
--- NOTE | 2020-09-02 15:32 | PDOC H&P ---
History of Present Illness Admission Date/PCP: 09/02/20 11:23 MAGDA ARAUJO MD Patient complains of: Patient presents emergency room after falling today. He was actually at rehab for physical therapy on his left shoulder which was recently repaired. He fell on his face as well as his hip and presents to the emergency room with left hip pain. History of Present Illness: DAMARIS RAMAN JR is a 85 year old male Patient presents emergency room after falling today. He was actually at rehab for physical therapy on his left shoulder which was recently repaired. He fell on his face as well as his hip and presents to the emergency room with left hip pain. Patient was found to have a left hip fracture after falling at rehab today. Patient denies any associated dizziness or chest pain or shortness of breath. Patient has apparently falling out twice in the last week or so. His says that he has been falling a little bit more frequently of late. It appears that he was in the hospital about 5 weeks ago precisely in June for his left reverse total shoulder arthroplasty. It appears at that time patient was noted to have atrial fibrillation intraoperatively. His who is really his main caregiver as patient does have some mild dementia was able to help him answer some questions. It appears patient was started on Eliquis just during this last hospital physician due to the atrial fibrillation. This apparently was not captured on serial EKGs. He has been seen by [facility] as outpatient and it looks like they have not really captured his atrial fibrillation on EKGs. Was also noted to be grossly hypertensive on arrival to the emergency room with his blood pressure at about 215 systolic. The states that he is compliant with his medications. Past Medical History Cardiac Medical History: Reports: Coronary Artery Disease, Myocardial Infarction - 14 YEARS AGO BYPASS SURG 2002, Hyperlipidema - ABOUT THREE YEARS AGO, Hypertension Denies: Atrial Fibrillation, Congestive Heart Failure, Peripheral Vascular Disease, Pulmonary Embolism, Heart Murmur Pulmonary Medical History: Reports: Sleep Apnea Denies: Asthma, Bronchitis, Chronic Obstructive Pulmonary Disease (COPD), Pneumonia, Respiratory Failure, Tuberculosis Neurological Medical History: Denies: Seizures Endocrine Medical History: Reports: Diabetes Mellitus Type 2 Denies: Hyperthyroidism, Hypothyroidism Malignancy Medical History: Denies: Leukemia, Lung Cancer GI Medical History: Reports: Gastroesophageal Reflux Disease, Hiatal Hernia - 1959 Denies: Crohn's Disease Musculoskeltal Medical History: Reports: Arthritis Denies: Fibromyalgia Psychiatric Medical History: Reports: Post Traumatic Stress Disorder - DX A COUPLE OF YEARS Denies: Bipolar Disorder, Dementia, Depression Hematology: Reports: Anemia - B12 INJECTIONS 2008 Denies: Hemophilia, Sickle Cell Disease Infectious Medical History: Denies: HIV Past Surgical History Past Surgical History: Reports: Coronary Artery Bypass Graft, Tonsillectomy - A CHILD Denies: Appendectomy, Cholecystectomy, Colostomy, Gastric Bypass Surgery, Herniorrhaphy, Pacemaker Social History Information Source: Relative Lives with: Family Smoking Status: Former Smoker Frequency of Alcohol Use: None Hx Recreational Drug Use: No Hx Prescription Drug Abuse: No - Advance Directive Resuscitation Status: Full Code Family History Family History: Reviewed & Not Pertinent Parental Family History Reviewed: No Children Family History Reviewed: Yes Sibling(s) Family History Reviewed.: No Medication/Allergy Home Medications: Metoprolol Succinate [Toprol Xl 50 mg Tab.sr] 50 mg PO DAILY 12/14/13 Allopurinol [Zyloprim 100 mg Tablet] 100 mg PO BID 03/07/17 Atorvastatin Calcium 40 mg PO QHS 03/07/17 Latanoprost [Xalatan 0.005% Oph Soln 2.5 ml] 1 drop OU QHS 03/07/17 Sitagliptin Phos/Metformin HCl [Janumet 50-1,000 mg Tablet] 1 tab PO BID Brimonidine Tartrate [Alphagan P] 1 drop OU Q12 10/15/17 Omeprazole Magnesium [Prilosec Otc] 20 mg PO BID 06/29/18 Cyanocobalamin (Vitamin B-12) [Vitamin B-12] 1,000 mcg PO DAILY 07/14/20 Apixaban [Eliquis 2.5 mg Tablet] 2.5 mg PO BID #60 tablet 07/15/20 Loratadine [Claritin 10 mg Tablet] 10 mg PO DAILY 09/02/20 Allergies/Adverse Reactions: No Known Allergies Allergy (Verified 07/14/20 06:55) Review of Systems All systems: reviewed and no additional remarkable complaints except as stated Constitutional: ABSENT: headache(s) Eyes: ABSENT: visual disturbances Ears: ABSENT: hearing changes Nose, Mouth, and Throat: ABSENT: headache(s), sore throat Cardiovascular: ABSENT: chest pain, dyspnea on exertion, palpitations Respiratory: ABSENT: cough, dyspnea, hemoptysis Neurological: PRESENT: frequent falls. ABSENT: numbness, syncope, weakness Physical Exam Vital Signs: Temp Pulse Resp BP Pulse Ox 98.7 F 70 16 202/88 H 93 09/02/20 11:06 09/02/20 10:59 09/02/20 10:59 09/02/20 15:10 09/02/20 11:06 Intake & Output 09/01/20 09/02/20 09/03/20 06:59 06:59 06:59 Weight 79.1 kg General appearance: PRESENT: no acute distress, well-nourished, other - Elderly pleasant gentleman Head exam: PRESENT: normocephalic, other - Scattered bruises on his face Eye exam: PRESENT: conjunctiva pink, EOMI, PERRLA. ABSENT: scleral icterus Ear exam: PRESENT: normal external ear exam Mouth exam: PRESENT: moist, tongue midline Neck exam: ABSENT: carotid bruit, JVD, lymphadenopathy, thyromegaly Respiratory exam: PRESENT: clear to auscultation mony, unlabored. ABSENT: rales, rhonchi, wheezes Cardiovascular exam: PRESENT: irregular rhythm, +S1, +S2. ABSENT: diastolic murmur, rubs, systolic murmur Pulses: PRESENT: normal dorsalis pedis pul Vascular exam: PRESENT: normal capillary refill GI/Abdominal exam: PRESENT: normal bowel sounds, soft. ABSENT: distended, guarding, mass, organolmegaly, rebound, tenderness Rectal exam: PRESENT: deferred Extremities exam: PRESENT: full ROM. ABSENT: calf tenderness, clubbing, pedal edema Neurological exam: PRESENT: alert, awake, oriented to person, oriented to place, oriented to time, oriented to situation, CN II-XII grossly intact. ABSENT: motor sensory deficit Psychiatric exam: PRESENT: appropriate affect. ABSENT: homicidal ideation, suicidal ideation Skin exam: PRESENT: dry, intact, warm, other - Scattered contusions and bruises on his left knee, left elbow and face. ABSENT: cyanosis, rash Results Laboratory Results: 09/02/20 11:40 09/02/20 11:40 09/02/20 09/02/20 11:40 11:40 WBC 10.4 RBC 3.98 L Hgb 11.2 L Hct 33.9 L MCV 85 MCH 28.2 MCHC 33.1 RDW 14.0 Plt Count 253 Seg Neutrophils % 77.5 Sodium 137.5 Potassium 3.5 L Chloride 101 Carbon Dioxide 29 Anion Gap 8 BUN 10 Creatinine 0.73 Est GFR ( Amer) > 60 Glucose 149 H Calcium 8.5 EKG Comments: EKG shows sinus rhythm with right bundle branch block which is consistent with his prior EKGs. Impressions: Cervical Spine CT 09/02/20 10:33 IMPRESSION: CHRONIC DEGENERATIVE CHANGES. NO ACUTE FINDINGS. Chest X-Ray 09/02/20 10:33 IMPRESSION: No evidence of acute intrathoracic process. Head CT 09/02/20 10:33 IMPRESSION: MILD CHRONIC CHANGES OF ATROPHY AND MICROVASCULAR ISCHEMIA. NO ACUTE PROCESS. EVIDENCE OF ACUTE STROKE: NO. Pelvis X-Ray 09/02/20 10:33 IMPRESSION: Transcervical left femur fracture with mild impaction. Hip X-Ray 09/02/20 11:11 IMPRESSION: Transcervical left femur fracture with mild impaction. No dislocation. Assessment and Plan - Diagnosis (1) Hypertensive emergency Is this a current diagnosis for this admission?: Yes (2) Closed left hip fracture Qualifiers: Encounter type: initial encounter Qualified Code(s): S72.002A - Fracture of unspecified part of neck of left femur, initial encounter for closed fracture Is this a current diagnosis for this admission?: Yes (3) PAF (paroxysmal atrial fibrillation) Is this a current diagnosis for this admission?: Yes - Plan Summary Summary: 75-year-old with left hip fracture sustained secondary to a fall while at physical therapy. Patient was found to have uncontrolled blood pressure at the time of arrival in the emergency room. Am concerned that either these or episodes of atrial fibrillation may have contributed to his fall. It appears the patient has paroxysmal atrial fibrillation. I understand that this has really never been documented on EKG although he had a transient episode when he was in the OR a few weeks ago. Patient was placed on Eliquis at the time and of course now with his multiple episodes of falling this will need to be reconsid ered. He is to be evaluated for surgical intervention but will hold his Eliquis in the interim preoperatively. His blood pressure will also need to be better controlled. I will also go ahead and consult cardiology as he has been seen by Dr. Baker in the past. Patient has been placed on telemetry monitoring.Although I do not have an echocardiogram on file I understand that he has had an echo done in the [facility] office and so will wait for business [facility] input. We will continue his metoprolol - Time Time Spent with patient: 35 or more minutes Medications reviewed and adjusted accordingly: Yes Anticipated Discharge Disposition: Home with Home Health Anticipated Discharge Timeframe: within 72 hours
[2020-09-02] MEDS: INSULIN REG, HUMAN 100 UNIT/ML 3 ML VIAL (PYX) SUBCUT SCH ×2 (17:23→22:38)
[2020-09-02] MEDS: ALLOPURINOL 100 MG TABLET PO SCH (17:28)
[2020-09-02] MEDS: OXYCODONE-ACETAMINOPHEN 5-325 MG TABLET PO PRN (17:29)
--- NOTE | 2020-09-02 18:20 | ADVANCED CARE ---
- Diagnosis (1) Hypertensive emergency Diagnosis Current: Yes (2) Closed left hip fracture Diagnosis Current: Yes (3) PAF (paroxysmal atrial fibrillation) Diagnosis Current: Yes Resuscitation Status: Full Code Discussion: Discussion was held with his Jarad as well as with patient. Patient was able to contribute. At this time patient is a full code although I have advised the to will consider and reevaluate given advanced age. She is receptive to this idea. She does have a booklet given to him by the hospital regarding this Time Spent: 16 minutes
--- NOTE | 2020-09-02 19:01 | EKG REPORT ---
SEVERITY:- ABNORMAL ECG - SINUS RHYTHM FIRST DEGREE AV BLOCK RIGHT BUNDLE BRANCH BLOCK : Confirmed by: Baldomero Morillo 02-Sep-2020 19:00:43
[2020-09-02] MEDS: FAMOTIDINE 20 MG TABLET PO SCH (21:12)
[2020-09-02] MEDS: ATORVASTATIN CALCIUM 40 MG TABLET PO SCH (21:12)
[2020-09-02] MEDS: ENALAPRILAT DIHYDRATE INJ/PF 2.5 MG/2 ML SDV IV PRN (21:13)
[2020-09-02] MEDS: LATANOPROST 0.005% OPH SOLN 2.5 ML OU SCH (21:20)
[2020-09-02] MEDS ORDERED: BRIMONIDINE TARTRATE 0.15% OU SCH (22:00)
[2020-09-03] MEDS: ENALAPRILAT DIHYDRATE INJ/PF 2.5 MG/2 ML SDV IV PRN ×2 (04:02→11:57)
[2020-09-03] MEDS: OXYCODONE-ACETAMINOPHEN 5-325 MG TABLET PO PRN ×2 (06:30→13:37)
[2020-09-03 06:33] LABS: ABSOLUTE BASOPHILS # (AUTO) 0.1 10^3/uL (0.0-0.2); ABSOLUTE EOSINOPHILS # (AUTO) 0.2 10^3/uL (0.0-0.6); ABSOLUTE LYMPHOCYTES (AUTO) 1.3 10^3/uL (0.5-4.7); ABSOLUTE NEUT (AUTO) 7.4 10^3/uL (1.7-8.2); BASOPHILS % (AUTO) 0.7 % (0-2); EOSINOPHILS % (AUTO) 1.7 % (0-6); HEMATOCRIT 33.7 % (37.9-51.0); HEMOGLOBIN 11.3 g/dL (13.5-17.0); LYMPHOCYTES % (AUTO) 12.7 % (13-45); MEAN CORPUSCULAR HEMOGLOBIN 28.4 pg (27.0-33.4); MEAN CORPUSCULAR HGB CONC 33.5 g/dL (32.0-36.0); MEAN CORPUSCULAR VOLUME 85 fl (80-97); MONOCYTES % (AUTO) 9.7 % (3-13); PLATELET COUNT 217 10^3/uL (150-450); RED BLOOD COUNT 3.98 10^6/uL (4.35-5.55); SEGMENTED NEUTROPHILS % (AUTO) 75.2 % (42-78); TOTAL CELLS COUNTED % (AUTO) 100 %; WHITE BLOOD COUNT 9.9 10^3/uL (4.0-10.5)
[2020-09-03 06:40] LABS: INTERNATIONAL RATION (INR) 1.02; PROTHROMBIN TIME 13.6 SEC (11.4-15.4)
[2020-09-03 06:41] LABS: PARTIAL THROMBOPLASTIN TIME 32.9 SEC (23.5-35.8)
[2020-09-03 06:57] LABS: ANION GAP 9 (5-19); BLOOD UREA NITROGEN 11 mg/dL (7-20); CALCIUM 8.7 mg/dL (8.4-10.2); CARBON DIOXIDE 28 mmol/L (22-30); CHLORIDE 101 mmol/L (98-107); GLUCOSE 141 mg/dL (75-110); POTASSIUM 3.7 mmol/L (3.6-5.0)
[2020-09-03] MEDS: INSULIN REG, HUMAN 100 UNIT/ML 3 ML VIAL (PYX) SUBCUT SCH ×4 (07:35→21:08)
--- NOTE | 2020-09-03 08:19 | PDOC CONSULTATION ---
Consultation Consult Date: 09/03/20 Attending physician:: LILLY GRANT Provider Consulted: HEIKE MONTE Consult reason:: PAF History of Present Illness Admission Date/PCP: 09/02/20 11:23 MAGDA ARAUJO MD History of Present Illness: DAMARIS RAMAN JR is a 85 year old male, [facility] [place] [facility] [employer] with history of coronary artery disease status post non-STEMI in December 2002, status post 5 vessel CABG CABG on 01/08/2003 with HATCH to the LAD, sequential SVG to the ramus and OM, SVG to diagonal and SVG to PDA, diabetes, hyperlipidemia, hypertension and paroxysmal atrial fibrillation who is consulted to our service for cardiology evaluation. The patient was admitted to our facility after suffering a left hip fracture after sustaining a fall during rehab. There was no syncope or presyncope. In the emergency room he was found to be very hypertensive however no antihypertensives were initiated at the time of admission. His low-dose Eliquis had been held for possible hip surgery. He had an uneventful night and remains asymptomatic this morning. He specifically denies chest pain, shortness of breath, RUFF, PND, lower extremity edema, palpitations, syncope and presyncope. Of note, he underwent shoulder surgery at this facility in June 2020 without cardiac complications except for brief episodes of atrial fibrillation in the OR. These episodes where confirmed during his stay post surgery. His telemetry shows normal sinus rhythm with episodes of atrial fibrillation with a controlled rate. Physical exam on 09/03/2020: GENERAL: Pleasant and conversational. Oriented x3 with normal mood. Not in acute distress. Well groomed and well developed. HEENT: Normocephalic, atraumatic. Pupils equal. Sclerae anicteric. Oropharynx moist. NECK: No JVD. No carotid bruits. LUNGS: Clear to auscultation bilaterally. Normal respiratory effort without the use of accessory muscles or intercostal retractions. CARDIOVASCULAR: Regular rate and rhythm, normal S1 and S2 without murmurs, rubs, or gallops. PMI not displaced. ABDOMEN: No masses or tenderness to palpation. No bruit. No splenomegaly or hepatomegaly. No abdominal aorta bruit noted. EXTREMITIES: No edema, no cyanosis, no clubbing. +2 pulses femoral and pedal pulses bilaterally. SKIN: No lesions or rashes. MUSCULOSKELETAL: No chest tenderness to palpation. NEUROLOGIC: Nonfocal. No gross sensory or motor deficits bilateral upper or lower extremities. Cardiac studies: Echocardiogram on 10/04/18: -LV is normal in size. -Mild concentric LVH. -EF 60-65%. -Mild LAE. -Mild MR, trace TR, mild PI. -No evidence of aortic aneurysm. Echocardiogram on 08/11/17: -ppor quality study. -The left ventricle is normal in size. -Mild concentric LVH. -Ejection fractions 55%. -Grade 1 diastolic dysfunction. -Mild LAE. Maladies. -Mild MR, trace TR, mild PI. -The aortic valve is mildly sclerotic without stenosis or insufficiency. -Mildly dilated aortic root at 3.8 cm. Lexiscan nuclear stress test on 08/10/17 at [facility]: -Mild ischemia in the basal and mid inferolateral wall with an SDS score of 2. -Ejection fraction 46%. -No evidence of infarct. Past Medical History Cardiac Medical History: Reports: Coronary Artery Disease, Myocardial Infarction - 14 YEARS AGO BYPASS SURG 2002, Hyperlipidema - ABOUT THREE YEARS AGO, Hypertension Denies: Atrial Fibrillation, Congestive Heart Failure, Peripheral Vascular Disease, Pulmonary Embolism, Heart Murmur Pulmonary Medical History: Reports: Sleep Apnea Denies: Asthma, Bronchitis, Chronic Obstructive Pulmonary Disease (COPD), Pneumonia, Respiratory Failure, Tuberculosis Neurological Medical History: Denies: Seizures Endocrine Medical History: Reports: Diabetes Mellitus Type 2 Denies: Hyperthyroidism, Hypothyroidism Malignancy Medical History: Denies: Leukemia, Lung Cancer GI Medical History: Reports: Gastroesophageal Reflux Disease, Hiatal Hernia - 1958 Denies: Crohn's Disease Musculoskeltal Medical History: Reports: Arthritis Denies: Fibromyalgia Psychiatric Medical History: Reports: Post Traumatic Stress Disorder - DX A COUPLE OF YEARS Denies: Bipolar Disorder, Dementia, Depression Hematology: Reports: Anemia - B12 INJECTIONS 2008 Denies: Hemophilia, Sickle Cell Disease Infectious Medical History: Denies: HIV Past Surgical History Past Surgical History: Reports: Coronary Artery Bypass Graft, Tonsillectomy - A CHILD Denies: Appendectomy, Cholecystectomy, Colostomy, Gastric Bypass Surgery, Herniorrhaphy, Pacemaker Social History Lives with: Family Smoking Status: Former Smoker Frequency of Alcohol Use: None Hx Recreational Drug Use: No Hx Prescription Drug Abuse: No - Advance Directive Resuscitation Status: Full Code Family History Family History: Reviewed & Not Pertinent Parental Family History Reviewed: Yes Children Family History Reviewed: Yes Sibling(s) Family History Reviewed.: Yes Medication/Allergy Home Medications: Metoprolol Succinate [Toprol Xl 50 mg Tab.sr] 50 mg PO DAILY 12/14/13 Allopurinol [Zyloprim 100 mg Tablet] 100 mg PO BID 03/07/17 Atorvastatin Calcium 40 mg PO QHS 03/07/17 Latanoprost [Xalatan 0.005% Oph Soln 2.5 ml] 1 drop OU QHS 03/07/17 Sitagliptin Phos/Metformin HCl [Janumet 50-1,000 mg Tablet] 1 tab PO BID 03/07/17 Brimonidine Tartrate [Alphagan P] 1 drop OU Q12 10/15/17 Omeprazole Magnesium [Prilosec Otc] 20 mg PO BID 06/29/18 Cyanocobalamin (Vitamin B-12) [Vitamin B-12] 1,000 mcg PO DAILY 07/14/20 Apixaban [Eliquis 2.5 mg Tablet] 2.5 mg PO BID #60 tablet 07/15/20 Loratadine [Claritin 10 mg Tablet] 10 mg PO DAILY 09/02/20 Allergies/Adverse Reactions: No Known Allergies Allergy (Verified 07/14/20 06:55) Physical Exam Vital Signs: Temp Pulse Resp BP Pulse Ox 97.6 F 65 18 213/77 H 94 09/03/20 03:54 09/03/20 04:02 09/03/20 03:54 09/03/20 04:02 09/03/20 03:54 Intake & Output 09/01/20 09/02/20 09/03/20 06:59 06:59 06:59 Intake Total 496 Output Total 200 Balance 296 Weight 79.1 kg Results Laboratory Results: 09/02/20 11:40 09/02/20 11:40 09/02/20 09/02/20 11:40 11:40 WBC 10.4 RBC 3.98 L Hgb 11.2 L Hct 33.9 L MCV 85 MCH 28.2 MCHC 33.1 RDW 14.0 Plt Count 253 Seg Neutrophils % 77.5 Sodium 137.5 Potassium 3.5 L Chloride 101 Carbon Dioxide 29 Anion Gap 8 BUN 10 Creatinine 0.73 Est GFR ( Amer) > 60 Glucose 149 H Calcium 8.5 Impressions: Cervical Spine CT 09/02/20 10:33 IMPRESSION: CHRONIC DEGENERATIVE CHANGES. NO ACUTE FINDINGS. Chest X-Ray 09/02/20 10:33 IMPRESSION: No evidence of acute intrathoracic process. Head CT 09/02/20 10:33 IMPRESSION: MILD CHRONIC CHANGES OF ATROPHY AND MICROVASCULAR ISCHEMIA. NO ACUTE PROCESS. EVIDENCE OF ACUTE STROKE: NO. Pelvis X-Ray 09/02/20 10:33 IMPRESSION: Transcervical left femur fracture with mild impaction. Hip X-Ray 09/02/20 11:11 IMPRESSION: Transcervical left femur fracture with mild impaction. No dislocation. 09/02/20 11:40 09/02/20 11:40 MCV 85 fl (80-97) 09/02/20 11:40 MCH 28.2 pg (27.0-33.4) 09/02/20 11:40 MCHC 33.1 g/dL (32.0-36.0) 09/02/20 11:40 RDW 14.0 % (11.5-14.0) 09/02/20 11:40 Seg Neutrophils % 77.5 % (42-78) 09/02/20 11:40 Chloride 101 mmol/L (98-107) 09/02/20 11:40 Carbon Dioxide 29 mmol/L (22-30) 09/02/20 11:40 Anion Gap 8 (5-19) 09/02/20 11:40 Est GFR ( Amer) > 60 (>60) 09/02/20 11:40 Glucose 149 mg/dL (75-110) H 09/02/20 11:40 Calcium 8.5 mg/dL (8.4-10.2) 09/02/20 11:40 Current Medication List Generic Name Dose Route Start Last Admin Trade Name Freq PRN Reason Stop Dose Admin Acetaminophen 650 mg 09/02/20 15:04 Acetaminophen 325 Mg Tablet PO 10/02/20 15:03 Q4HP PRN FOR PAIN SCALE 1-2 Albuterol/Ipratropium 3 ml 09/02/20 15:04 Ipratropium/Albuterol 0.5-2.5 Mg/3 Ml Ampul NEB 10/02/20 15:03 RTQ6HP PRN SHORTNESS OF BREATH Allopurinol 100 mg 09/02/20 18:00 09/02/20 17:28 Allopurinol 100 Mg Tablet PO 10/02/20 17:59 100 mg BID ANGE Administration Atorvastatin Calcium 40 mg 09/02/20 22:00 09/02/20 21:12 Atorvastatin Calcium 40 Mg Tablet PO 10/02/20 21:59 40 mg QHS ANGE Administration Cyanocobalamin 1,000 mcg 09/03/20 10:00 Cyanocobalamin (Vitamin B-12) 1,000 Mcg Tablet PO 10/03/20 09:59 DAILY ANGE Dextrose 12.5 gm 09/02/20 15:23 Dextrose 50%-Water 25 Gm/50 Ml Disp.Syrin IV 10/02/20 15:22 PRN PRN FOR BG 50-69 IN ALERT PATIENT Protocol Dextrose 25 gm 09/02/20 15:23 Dextrose 50%-Water 25 Gm/50 Ml Disp.Syrin IV 10/02/20 15:22 PRN PRN PER PROTOCOL Protocol Docusate Sodium 100 mg 09/03/20 10:00 Docusate Sodium 100 Mg Capsule PO 10/03/20 09:59 DAILY ANGE Enalaprilat 2.5 mg 09/02/20 15:13 09/03/20 04:02 Enalaprilat Dihydrate Inj/Pf 2.5 Mg/2 Ml Sdv IV 10/02/20 15:12 2.5 mg Q6HP PRN Administration SBP 180, DBP >105 Famotidine 20 mg 09/02/20 22:00 09/02/20 21:12 Famotidine 20 Mg Tablet PO 10/02/20 21:59 20 mg Q12 ANGE Administration Glucagon 1 mg 09/02/20 15:23 Glucagon,Human Recomb 1 Mg Inj IM 10/02/20 15:22 PRN PRN Evaluate for BG < 70 Protocol Glucose 15 gm 09/02/20 15:23 Dextrose 40% Gel 15 Gm Tube PO 10/02/20 15:22 PRN PRN FOR BG 50-69 IN ALERT PATIENT Protocol Glucose 30 gm 09/02/20 15:23 Dextrose 40% Gel 15 Gm Tube PO 10/02/20 15:22 PRN PRN FOR BG < 50 IN ALERT PATIENT Protocol Hydralazine HCl 10 mg 09/02/20 12:59 Hydralazine Hcl Inj/Pf 20 Mg/1 Ml Sdv IV 10/02/20 12:58 Q4HP PRN SBP >180, DBP >110 Insulin Human Regular 0 - 12 unit 09/02/20 16:00 09/02/20 22:38 Insulin Reg, Human 100 Unit/Ml 3 Ml Vial (Pyx) SUBCUT 10/02/20 15:59 2 unit ACHS [facility] Administration Protocol Latanoprost 1 drop 09/02/20 22:00 09/02/20 21:20 Latanoprost 0.005% Oph Soln 2.5 Ml OU 10/02/20 21:59 Not Given QHS [facility] Loratadine 10 mg 09/03/20 10:00 Loratadine 10 Mg Tablet PO 10/03/20 09:59 DAILY ANGE Magnesium Hydroxide 30 ml 09/02/20 15:04 Magnesium Hydroxide Susp 30 Ml Udcup PO 10/02/20 15:03 HSP PRN FOR CONSTIPATION Metoprolol Succinate 50 mg 09/02/20 15:00 09/02/20 14:25 Metoprolol Succinate 50 Mg Tab.Sr.24h PO 10/02/20 14:59 Not Given DAILY [facility] Ondansetron HCl 4 mg 09/02/20 15:04 Ondansetron 4 Mg Tab.Rapdis PO 10/02/20 15:03 Q6HP PRN FOR NAUSEA/VOMITING Oxycodone/Acetaminophen 1 tab 09/02/20 15:04 09/02/20 17:29 Oxycodone-Acetaminophen 5-325 Mg Tablet PO 09/09/20 15:03 1 tab Q6HP PRN Administration FOR PAIN SCALE 2-4 Patient Own Medication 1 drop 09/02/20 22:00 Brimonidine Tartrate [Alphagan P] OU 10/02/20 21:59 Q12 [facility] Temazepam 7.5 mg 09/02/20 15:04 Temazepam 7.5 Mg Capsule PO 09/09/20 15:03 HSP PRN SLEEP OR INSOMNIA Discontinued Medications Generic Name Dose Route Start Last Admin Trade Name Freq PRN Reason Stop Dose Admin Enalaprilat 2.5 mg 09/02/20 14:30 09/02/20 15:10 Enalaprilat Dihydrate Inj/Pf 2.5 Mg/2 Ml Sdv IV 09/02/20 14:31 2.5 mg NOW ONE Administration Hydralazine HCl 10 mg 09/02/20 15:00 09/02/20 14:25 Hydralazine Hcl Inj/Pf 20 Mg/1 Ml Sdv IV 09/02/20 15:01 Not Given NOW ONE Metoprolol Succinate Confirm 09/02/20 13:51 09/02/20 13:57 Metoprolol Succinate 50 Mg Tab.Sr.24h Administered 09/02/20 13:52 50 mg Dose Administration 50 mg PO .STK-MED ONE Potassium Chloride 20 meq 09/02/20 15:10 09/02/20 17:27 Potassium Chloride 10 Meq Tablet.Er PO 09/02/20 15:11 20 meq NOW ONE Administration Potassium Chloride Confirm 09/02/20 17:25 09/02/20 17:30 Potassium Chloride 10 Meq Tablet.Er Administered 09/02/20 17:26 Not Given Dose 10 meq PO .STK-MED ONE Assessment & Plan - Diagnosis (1) CAD (coronary artery disease) Qualifiers: Coronary Disease-Associated Artery/Lesion type: bypass graft Associated angina: without angina Is this a current diagnosis for this admission?: Yes Plan: Status post non-STEMI in December 2002, status post 5 vessel CABG CABG on 01/08/2003 with HATCH to the LAD, sequential SVG to the ramus and OM, SVG to diagonal and SVG to PDA. The patient is functional class 1-2. His most recent Lexiscan on 08/10/17 at [facility] demonstrated mild ischemia in the basal mid inferior lateral wall with an SDS score of 2 which is prognostically normal. His echocardiogram in September 2018 demonstrated a normal ejection fraction without any evidence of aortic root aneurysm. He has remained free of ischemic symptoms since admission. Recommendations: -Start baby aspirin unless the patient is being considered for hip surgery. -Given his uncontrolled hypertension, discontinue metoprolol and start Coreg 6.25 mg twice daily. -Low-sodium diet. -Start lisinopril 30 mg daily. -We will continue to follow with you. (2) Hypertension Qualifiers: Hypertension type: essential hypertension Qualified Code(s): I10 - Essential (primary) hypertension Plan: His blood pressure is very elevated however he has not received any scheduled antihypertensives since admission. His goal blood pressure is 130/80 or below. Recommendations: -Discontinue metoprolol and start carvedilol 6.25 mg twice daily. -Start lisinopril 30 mg daily. -Low-sodium diet. -We will continue to follow with you. (3) Hyperlipidemia Is this a current diagnosis for this admission?: Yes Plan: Continue with high intensity statin therapy. (4) PAF (paroxysmal atrial fibrillation) Plan: The patient continues to have brief episodes of paroxysmal atrial fibrillation on telemetry. He remains asymptomatic. His [id number] score is 4 therefore he should be anticoagulated with full dose Eliquis or full dose Xarelto unless he is planned to undergo orthopedic surgery in which case anticoagulation will be held. Of note, if Eliquis is chosen for anticoagulation he should get the 5 mg twice daily dosing as he does not meet criteria for the lower dose.
[2020-09-03] MEDS: LORATADINE 10 MG TABLET PO SCH (09:51)
[2020-09-03] MEDS: DOCUSATE SODIUM 100 MG CAPSULE PO SCH (09:51)
[2020-09-03] MEDS: METOPROLOL SUCCINATE 50 MG TAB.SR.24H PO SCH (09:51)
[2020-09-03] MEDS: ALLOPURINOL 100 MG TABLET PO SCH ×2 (09:51→17:34)
[2020-09-03] MEDS: FAMOTIDINE 20 MG TABLET PO SCH ×2 (09:51→21:09)
[2020-09-03] MEDS: CYANOCOBALAMIN (VITAMIN B-12) 1,000 MCG TABLET PO SCH (09:52)
[2020-09-03] MEDS ORDERED: CYANOCOBALAMIN 1000 MCG PO SCH (10:00)
--- NOTE | 2020-09-03 13:01 | PDOC CONSULTATION ---
Consultation Consult Date: 09/03/20 Attending physician:: LILLY GRANT Provider Consulted: RAOUL ROBLES Consult reason:: 1. Left hip pain post fall. 2. Left displaced subcapital femoral neck fracture History of Present Illness Admission Date/PCP: 09/02/20 11:23 MAGDA ARAUJO MD History of Present Illness: DAMARIS RAMAN JR is a 85 year old male retired [employer]. Patient sustained a fall while participating in rehab for a left shoulder arthroplasty for rotator cuff arthropathy. This fall resulted in a displaced subcapital femoral neck fracture of the left hip. The patient has a history of coronary artery disease and myocardial infarction status post CABG. The patient also has a history of paroxysmal atrial fibrillation and is on Eliquis. The patient has been seen by cardiology and has been optimized for left hip hemiarthroplasty. Past Medical History Cardiac Medical History: Reports: Coronary Artery Disease, Myocardial Infarction - 14 YEARS AGO BYPASS SURG 2002, Hyperlipidema - ABOUT THREE YEARS AGO, Hypertension Denies: Atrial Fibrillation, Congestive Heart Failure, Peripheral Vascular Disease, Pulmonary Embolism, Heart Murmur Pulmonary Medical History: Reports: Sleep Apnea Denies: Asthma, Bronchitis, Chronic Obstructive Pulmonary Disease (COPD), Pneumonia, Respiratory Failure, Tuberculosis Neurological Medical History: Denies: Seizures Endocrine Medical History: Reports: Diabetes Mellitus Type 2 Denies: Hyperthyroidism, Hypothyroidism Malignancy Medical History: Denies: Leukemia, Lung Cancer GI Medical History: Reports: Gastroesophageal Reflux Disease, Hiatal Hernia - 1958 Denies: Crohn's Disease Musculoskeltal Medical History: Reports: Arthritis Denies: Fibromyalgia Psychiatric Medical History: Reports: Post Traumatic Stress Disorder - DX A COUPLE OF YEARS Denies: Bipolar Disorder, Dementia, Depression Hematology: Reports: Anemia - B12 INJECTIONS 2008 Denies: Hemophilia, Sickle Cell Disease Infectious Medical History: Denies: HIV Past Surgical History Past Surgical History: Reports: Coronary Artery Bypass Graft, Orthopedic Surgery - Left shoulder reverse arthroplasty 06/2020, Tonsillectomy - A CHILD Denies: Appendectomy, Cholecystectomy, Colostomy, Gastric Bypass Surgery, Herniorrhaphy, Pacemaker Social History Lives with: Family Smoking Status: Former Smoker Frequency of Alcohol Use: None Hx Recreational Drug Use: No Hx Prescription Drug Abuse: No - Advance Directive Resuscitation Status: Full Code Family History Family History: Reviewed & Not Pertinent Parental Family History Reviewed: No Children Family History Reviewed: No Sibling(s) Family History Reviewed.: No Medication/Allergy Home Medications: Metoprolol Succinate [Toprol Xl 50 mg Tab.sr] 50 mg PO DAILY 12/14/13 Allopurinol [Zyloprim 100 mg Tablet] 100 mg PO BID 03/07/17 Atorvastatin Calcium 40 mg PO QHS 03/07/17 Latanoprost [Xalatan 0.005% Oph Soln 2.5 ml] 1 drop OU QHS 03/07/17 Sitagliptin Phos/Metformin HCl [Janumet 50-1,000 mg Tablet] 1 tab PO BID 03/07/17 Brimonidine Tartrate [Alphagan P] 1 drop OU Q12 10/15/17 Omeprazole Magnesium [Prilosec Otc] 20 mg PO BID 06/29/18 Cyanocobalamin (Vitamin B-12) [Vitamin B-12] 1,000 mcg PO DAILY 07/14/20 Apixaban [Eliquis 2.5 mg Tablet] 2.5 mg PO BID #60 tablet 07/15/20 Loratadine [Claritin 10 mg Tablet] 10 mg PO DAILY 09/02/20 Allergies/Adverse Reactions: No Known Allergies Allergy (Verified 07/14/20 06:55) Review of Systems ROS unobtainable: Other - As per HPI Physical Exam Vital Signs: Temp Pulse Resp BP Pulse Ox 97.9 F 67 20 184/81 H 97 09/03/20 11:00 09/03/20 11:00 09/03/20 11:00 09/03/20 11:00 09/03/20 11:00 Intake & Output 09/02/20 09/03/20 09/04/20 06:59 06:59 06:59 Intake Total 496 Output Total 250 200 Balance 246 -200 Weight 82.4 kg General appearance: PRESENT: no acute distress, well-developed, well-nourished Head exam: PRESENT: atraumatic, normocephalic Eye exam: PRESENT: conjunctiva pink, EOMI, PERRLA. ABSENT: scleral icterus Mouth exam: PRESENT: moist, tongue midline Neck exam: ABSENT: carotid bruit, JVD, lymphadenopathy, thyromegaly Respiratory exam: PRESENT: clear to auscultation mony. ABSENT: rales, rhonchi, wheezes Cardiovascular exam: PRESENT: RRR. ABSENT: diastolic murmur, rubs, systolic murmur Pulses: PRESENT: +2 pedal pulses bilateral GI/Abdominal exam: PRESENT: normal bowel sounds, soft. ABSENT: distended, guarding, mass, organolmegaly, rebound, tenderness Rectal exam: PRESENT: deferred Musculoskeletal exam: PRESENT: other - The left leg is shortened and externally rotated. The patient is able to dorsiflex and plantarflex his ankle. Sensation is intact to touch. 2+ DP and 1+ PT pulses palpable. Psychiatric exam: PRESENT: appropriate affect, normal mood. ABSENT: homicidal ideation, suicidal ideation Results Laboratory Results: 09/03/20 05:56 09/03/20 05:56 09/03/20 09/03/20 05:56 05:56 WBC 9.9 RBC 3.98 L Hgb 11.3 L Hct 33.7 L MCV 85 MCH 28.4 MCHC 33.5 RDW 14.0 Plt Count 217 Seg Neutrophils % 75.2 Sodium 137.9 Potassium 3.7 Chloride 101 Carbon Dioxide 28 Anion Gap 9 BUN 11 Creatinine 0.66 Est GFR ( Amer) > 60 Glucose 141 H Calcium 8.7 Magnesium 1.2 L* Impressions: Cervical Spine CT 09/02/20 10:33 IMPRESSION: CHRONIC DEGENERATIVE CHANGES. NO ACUTE FINDINGS. Chest X-Ray 09/02/20 10:33 IMPRESSION: No evidence of acute intrathoracic process. Head CT 09/02/20 10:33 IMPRESSION: MILD CHRONIC CHANGES OF ATROPHY AND MICROVASCULAR ISCHEMIA. NO ACUTE PROCESS. EVIDENCE OF ACUTE STROKE: NO. Pelvis X-Ray 09/02/20 10:33 IMPRESSION: Transcervical left femur fracture with mild impaction. Hip X-Ray 09/02/20 11:11 IMPRESSION: Transcervical left femur fracture with mild impaction. No dislocation. Assessment & Plan - Diagnosis (1) Subcapital fracture of left hip Is this a current diagnosis for this admission?: Yes (2) CAD (coronary artery disease) Qualifiers: Coronary Disease-Associated Artery/Lesion type: bypass graft Associated angina: without angina Is this a current diagnosis for this admission?: Yes (3) PAF (paroxysmal atrial fibrillation) Is this a current diagnosis for this admission?: Yes - Time Time Spent: 30 to 50 Minutes Anticipated discharge: SNF Anticipated DC Timeframe: within 72 hours - Plan Summary Plan Summary: Patient is a pleasant 85-year-old man with a history of coronary artery disease and paroxysmal atrial fibrillation on Eliquis. He sustained a fall while in rehab resulting in a displaced subcapital fracture of the left hip. The patient has been seen by cardiology and optimized for left hip hemiarthroplasty. I have recommended left hip hemiarthroplasty to the patient and his who accompanies him. Risk, benefits, and alternatives were discussed with the patient and his . Risks include the risk of with anesthesia, the risk of infection, the risk of injury to nerves and vessels, the risk of fracture, the risk of dislocation, and the possible need for additional surgical procedures. The patient and his expressed understanding and wish to proceed with surgery.
[2020-09-03] MEDS ORDERED: LISINOPRIL 10 MG TABLET PO ONE (13:30)
--- NOTE | 2020-09-03 13:44 | PDOC PROGRESS REPORT ---
Subjective Date:: 09/03/20 Reason For Visit: LEFT HIP FRACTURE, HYPERTENSIVE EMERGENCY,MULTIPLE Physical Exam Vital Signs: Temp Pulse Resp BP Pulse Ox 97.9 F 67 20 184/81 H 97 09/03/20 11:00 09/03/20 11:00 09/03/20 11:00 09/03/20 11:00 09/03/20 11:00 Intake & Output 09/02/20 09/03/20 09/04/20 06:59 06:59 06:59 Intake Total 496 Output Total 250 200 Balance 246 -200 Weight 82.4 kg General appearance: PRESENT: no acute distress Head exam: PRESENT: normocephalic, other - bruises and abrasions and superficial laceration on L scalp Eye exam: PRESENT: conjunctiva pink, EOMI, PERRLA. ABSENT: scleral icterus Ear exam: PRESENT: normal external ear exam Mouth exam: PRESENT: moist, tongue midline Neck exam: ABSENT: carotid bruit, JVD, lymphadenopathy, thyromegaly Respiratory exam: PRESENT: clear to auscultation mony. ABSENT: rales, rhonchi, wheezes Cardiovascular exam: PRESENT: RRR - At time of exam, +S1, +S2. ABSENT: diastolic murmur, rubs, systolic murmur Pulses: PRESENT: normal dorsalis pedis pul Vascular exam: PRESENT: normal capillary refill GI/Abdominal exam: PRESENT: normal bowel sounds, soft. ABSENT: distended, gu arding, mass, organolmegaly, rebound, tenderness Rectal exam: PRESENT: deferred Extremities exam: PRESENT: full ROM. ABSENT: calf tenderness, clubbing, pedal edema Neurological exam: PRESENT: alert, awake, oriented to person, oriented to place, oriented to time, oriented to situation, CN II-XII grossly intact. ABSENT: mot or sensory deficit Psychiatric exam: PRESENT: appropriate affect, normal mood. ABSENT: homicidal ideation, suicidal ideation Skin exam: PRESENT: abrasion, dry, rash, warm. ABSENT: cyanosis Results Laboratory Results: 09/03/20 05:56 09/03/20 05:56 09/03/20 09/03/20 05:56 05:56 WBC 9.9 RBC 3.98 L Hgb 11.3 L Hct 33.7 L MCV 85 MCH 28.4 MCHC 33.5 RDW 14.0 Plt Count 217 Seg Neutrophils % 75.2 Sodium 137.9 Potassium 3.7 Chloride 101 Carbon Dioxide 28 Anion Gap 9 BUN 11 Creatinine 0.66 Est GFR ( Amer) > 60 Glucose 141 H Calcium 8.7 Magnesium 1.2 L* Impressions: Cervical Spine CT 09/02/20 10:33 IMPRESSION: CHRONIC DEGENERATIVE CHANGES. NO ACUTE FINDINGS. Chest X-Ray 09/02/20 10:33 IMPRESSION: No evidence of acute intrathoracic process. Head CT 09/02/20 10:33 IMPRESSION: MILD CHRONIC CHANGES OF ATROPHY AND MICROVASCULAR ISCHEMIA. NO ACUTE PROCESS. EVIDENCE OF ACUTE STROKE: NO. Pelvis X-Ray 09/02/20 10:33 IMPRESSION: Transcervical left femur fracture with mild impaction. Hip X-Ray 09/02/20 11:11 IMPRESSION: Transcervical left femur fracture with mild impaction. No dislocation. 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 Patient was found to have uncontrolled blood pressure at the time of arrival in the emergency room. Am concerned that either these or episodes of atrial fibrillation may have contributed to his fall. It appears the patient has paroxysmal atrial fibrillation. I understand that this has really never been documented on EKG although he had a transient episode when he was in the OR a few weeks ago. Patient was placed on Eliquis at the time and of course now with his multiple episodes of falling this will need to be reconsidered. He is to be evaluated for surgical intervention but will hold his Eliquis in the interim preoperatively. His blood pressure will also need to be better controlled. I will also go ahead and consult cardiology as he has been seen by Dr. Baker in the past. Patient has been placed on telemetry monitoring.Although I do not have an echocardiogram on file I understand that he has had an echo done in the travel pta office and so will wait for travel pta input. We will continue his metoprolol 09/03 Patient was started on Coreg by cardiology and lisinopril also. Patient did receive metoprolol on the day of admission as per the computer records. He was also placed on enalapril IV every 6 as needed. Patient was admitted less than 24 hours ago. He also has been seen by orthopedics and he likely will be taken to the OR in the next 24 to 48 hours. Eliquis remains on hold. Patient did have episodes of paroxysmal atrial fibrillation on telemetry. Patient had been on 2.5 mg twice daily of Eliquis since about June for paroxysmal atrial fibrillation. This is to be restarted at 5 mg twice a day postoperatively as patient does not meet the full criteria for reduced dosage. - Time Time Spent with patient: 15-24 minutes Medications reviewed and adjusted accordingly: Yes Anticipated Discharge Disposition: Snf Facility Anticipated Discharge Timeframe: within 72 hours
[2020-09-03] MEDS ORDERED: MAGNESIUM SULFATE 4 GM/100 ML RTUPB IV ONE (14:30)
[2020-09-03] MEDS ORDERED: CARVEDILOL 6.25 MG TABLET PO ONE (16:45)
[2020-09-03] MEDS: ATORVASTATIN CALCIUM 40 MG TABLET PO SCH (21:09)
[2020-09-03] MEDS: LATANOPROST 0.005% OPH SOLN 2.5 ML OU SCH (21:13)
[2020-09-04] MEDS: ENALAPRILAT DIHYDRATE INJ/PF 2.5 MG/2 ML SDV IV PRN (04:08)
[2020-09-04] MEDS ORDERED: CEFAZOLIN 2 GM/D5W RTU 2 GM/50 ML RTUPB IV PRN (05:00)
[2020-09-04] MEDS ORDERED: TRANEXAMIC ACID INJ/PF 1,000 MG/10 ML SDV IV PRN (05:00)
[2020-09-04] MEDS: OXYCODONE-ACETAMINOPHEN 5-325 MG TABLET PO PRN ×2 (05:08→22:26)
[2020-09-04] MEDS ORDERED: EPHEDRINE SULFATE INJ 50 MG/1 ML AMPULE ONE (06:51)
[2020-09-04] MEDS ORDERED: KETAMINE HCL INJ 500 MG/10 ML VIAL ONE (06:51)
[2020-09-04] MEDS ORDERED: ONDANSETRON HCL INJ/PF 4 MG/2 ML SDV ONE (06:51)
[2020-09-04] MEDS ORDERED: MIDAZOLAM 2 MG/2 ML INJ ONE (06:51)
[2020-09-04] MEDS ORDERED: FENTANYL CITRATE INJ/PF 100 MCG/2 ML AMPUL ONE (06:51)
[2020-09-04] MEDS ORDERED: DEXAMETHASONE SOD PHOSPHATE INJ 4 MG/1 ML VIAL ONE (06:51)
[2020-09-04] MEDS ORDERED: PROPOFOL INJ 200 MG/20 ML VIAL IV ONE (06:52)
[2020-09-04] MEDS ORDERED: HYDROMORPHONE HCL INJ/PF 2 MG/ML AMPULE ONE (06:52)
[2020-09-04] MEDS: INSULIN REG, HUMAN 100 UNIT/ML 3 ML VIAL (PYX) SUBCUT SCH ×4 (07:37→22:30)
--- NOTE | 2020-09-04 08:43 | PDOC PROGRESS REPORT ---
Subjective Date:: 09/04/20 Subjective:: Left hip displaced subcapital hip fracture Reason For Visit: LEFT HIP FRACTURE, HYPERTENSIVE EMERGENCY,MULTIPLE Physical Exam Vital Signs: Temp Pulse Resp BP Pulse Ox 97.6 F 68 17 202/98 H 95 09/04/20 08:25 09/04/20 07:49 09/04/20 07:49 09/04/20 08:22 09/04/20 07:49 Intake & Output 09/03/20 09/04/20 09/05/20 06:59 06:59 06:59 Intake Total 496 100 Output Total 250 1150 Balance 246 -1050 Weight 82.4 kg 80.9 kg Results Laboratory Results: 09/03/20 05:56 09/03/20 05:56 09/04/20 05:56 Magnesium 1.8 Impressions: Cervical Spine CT 09/02/20 10:33 IMPRESSION: CHRONIC DEGENERATIVE CHANGES. NO ACUTE FINDINGS. Chest X-Ray 09/02/20 10:33 IMPRESSION: No evidence of acute intrathoracic process. Head CT 09/02/20 10:33 IMPRESSION: MILD CHRONIC CHANGES OF ATROPHY AND MICROVASCULAR ISCHEMIA. NO ACUTE PROCESS. EVIDENCE OF ACUTE STROKE: NO. Pelvis X-Ray 09/02/20 10:33 IMPRESSION: Transcervical left femur fracture with mild impaction. Hip X-Ray 09/02/20 11:11 IMPRESSION: Transcervical left femur fracture with mild impaction. No dislocation. Assessment & Plan - Diagnosis (1) Subcapital fracture of left hip Qualifiers: Encounter type: initial encounter Fracture type: closed Qualified C ode(s): S72.012A - Unspecified intracapsular fracture of left femur, initial encounter for closed fracture Is this a current diagnosis for this admission?: Yes (2) CAD (coronary artery disease) Qualifiers: Coronary Disease-Associated Artery/Lesion type: bypass graft Associated angina: without angina Is this a current diagnosis for this admission?: Yes (3) PAF (paroxysmal atrial fibrillation) Is this a current diagnosis for this admission?: Yes - Time Anticipated Discharge Disposition: Care Home Facility Anticipated Discharge Timeframe: within 72 hours Critical Time spent with patient: Less than 15 minutes - Plan Summary Plan Summary: The patient's systolic blood pressure was elevated in the 200s this morning. I had a conversation with the clearance rep, Dr. Baker who feels that the patient needs additional medical optimization prior to performing left hip hemiarthroplasty. I will continue to follow the patient for changes. He has been tentatively placed on the operating room schedule for 0 800 Monday morning.
--- NOTE | 2020-09-04 09:06 | PDOC PROGRESS REPORT ---
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 The patient was admitted to our facility after suffering a left hip fracture after sustaining a fall during rehab. There was no syncope or presyncope. In the emergency room he was found to be very hypertensive however no antihypertensives were initiated at the time of admission. His low-dose Eliquis had been held for possible hip surgery. He had an uneventful night and remains asymptomatic this morning. He specifically denies chest pain, shortness of breath, RUFF, PND, lower extremity edema, palpitations, syncope and presyncope. Of note, he underwent shoulder surgery at this facility in June 2020 without cardiac complications except for brief episodes of atrial fibrillation in the OR. These episodes where confirmed during his stay post surgery. His telemetry shows normal sinus rhythm with episodes of atrial fibrillation with a controlled rate. 09/04/2020: The patient had an uneventful night. He was begun on lisinopril and carvedilol yesterday to achieve better control of his blood pressure however it continues to be uncontrolled. Of note, upon review of his vital signs it is noted that his blood pressure in the right arm is significantly lower than in the left arm however we repeated manual blood pressures this morning on both arms with the following readings: Left arm was 202/96 and the right arm was 200/92. He continues to be asymptomatic from the cardiovascular standpoint. He is due to undergo surgery on his broken hip however his blood pressure is out of control at this point. Physical exam on 09/04/2020: GENERAL: Pleasant and conversational. Oriented x3 with normal mood. Not in acute distress. Well groomed and well developed. HEENT: Normocephalic, atraumatic. Pupils equal. Sclerae anicteric. Oropharynx moist. NECK: No JVD. No carotid bruits. LUNGS: Clear to auscultation bilaterally. Normal respiratory effort without the use of accessory muscles or intercostal retractions. CARDIOVASCULAR: Regular rate and rhythm, normal S1 and S2 without murmurs, rubs, or gallops. PMI not displaced. ABDOMEN: No masses or tenderness to palpation. No bruit. No splenomegaly or hepatomegaly. No abdominal aorta bruit noted. EXTREMITIES: No edema, no cyanosis, no clubbing. +2 pulses femoral and pedal pulses bilaterally. SKIN: No lesions or rashes. MUSCULOSKELETAL: No chest tenderness to palpation. NEUROLOGIC: Nonfocal. No gross sensory or motor deficits bilateral upper or lo wer extremities. Cardiac studies: Echocardiogram on 10/04/18: -LV is normal in size. -Mild concentric LVH. -EF 60-65%. -Mild LAE. -Mild MR, trace TR, mild PI. -No evidence of aortic aneurysm. Echocardiogram on 08/11/17: -ppor quality study. -The left ventricle is normal in size. -Mild concentric LVH. -Ejection fractions 55%. -Grade 1 diastolic dysfunction. -Mild LAE. Maladies. -Mild MR, trace TR, mild PI. -The aortic valve is mildly sclerotic without stenosis or insufficiency. -Mildly dilated aortic root at 3.8 cm. Lexiscan nuclear stress test on 08/10/17 at [facility]: -Mild ischemia in the basal and mid inferolateral wall with an SDS score of 2. -Ejection fraction 46%. -No evidence of infarct. Reason For Visit: LEFT HIP FRACTURE, HYPERTENSIVE EMERGENCY,MULTIPLE Physical Exam Vital Signs: Temp Pulse Resp BP Pulse Ox 97.9 F 69 22 H 128/79 H 94 09/04/20 03:50 09/04/20 04:08 09/04/20 03:50 09/04/20 05:31 09/04/20 03:50 Intake & Output 09/03/20 09/04/20 09/05/20 06:59 06:59 06:59 Intake Total 496 100 Output Total 250 1150 Balance 246 -1050 Weight 82.4 kg 80.9 kg Results Laboratory Results: 09/03/20 05:56 09/03/20 05:56 09/03/20 09/04/20 05:56 05:56 Sodium 137.9 Potassium 3.7 Chloride 101 Carbon Dioxide 28 Anion Gap 9 BUN 11 Creatinine 0.66 Est GFR ( Amer) > 60 Glucose 141 H Calcium 8.7 Magnesium 1.2 L* 1.8 Impressions: Cervical Spine CT 09/02/20 10:33 IMPRESSION: CHRONIC DEGENERATIVE CHANGES. NO ACUTE FINDINGS. Chest X-Ray 09/02/20 10:33 IMPRESSION: No evidence of acute intrathoracic process. Head CT 09/02/20 10:33 IMPRESSION: MILD CHRONIC CHANGES OF ATROPHY AND MICROVASCULAR ISCHEMIA. NO ACUTE PROCESS. EVIDENCE OF ACUTE STROKE: NO. Pelvis X-Ray 09/02/20 10:33 IMPRESSION: Transcervical left femur fracture with mild impaction. Hip X-Ray 09/02/20 11:11 IMPRESSION: Transcervical left femur fracture with mild impaction. No dislocation. 09/03/20 05:56 09/03/20 05:56 MCV 85 fl (80-97) 09/03/20 05:56 MCH 28.4 pg (27.0-33.4) 09/03/20 05:56 MCHC 33.5 g/dL (32.0-36.0) 09/03/20 05:56 RDW 14.0 % (11.5-14.0) 09/03/20 05:56 Seg Neutrophils % 75.2 % (42-78) 09/03/20 05:56 Chloride 101 mmol/L (98-107) 09/03/20 05:56 Carbon Dioxide 28 mmol/L (22-30) 09/03/20 05:56 Anion Gap 9 (5-19) 09/03/20 05:56 Est GFR ( Amer) > 60 (>60) 09/03/20 05:56 Glucose 141 mg/dL (75-110) H 09/03/20 05:56 Calcium 8.7 mg/dL (8.4-10.2) 09/03/20 05:56 Magnesium 1.8 mg/dL (1.6-2.3) 09/04/20 05:56 Medications During Hospitalization Allopurinol (Allopurinol 100 Mg Tablet) 100 mg PO BID ANGE Stop: 10/02/20 17:59 Last Admin: 09/03/20 17:34 Dose: 100 mg Documented by: Admin: 09/03/20 09:51 Dose: 100 mg Documented by: Admin: 09/02/20 17:28 Dose: 100 mg Documented by: MARIBELL Atorvastatin Calcium (Atorvastatin Calcium 40 Mg Tablet) 40 mg PO QHS ANGE Stop: 10/02/20 21:59 Last Admin: 09/03/20 21:09 Dose: 40 mg Documented by: Admin: 09/02/20 21:12 Dose: 40 mg Documented by: JOSÉ LUIS Cyanocobalamin (Cyanocobalamin (Vitamin B-12) 1,000 Mcg Tablet) 1,000 mcg PO DAILY [facility] Stop: 10/03/20 09:59 Last Admin: 09/03/20 09:52 Dose: 1,000 mcg Documented by: RACHEL Docusate Sodium (Docusate Sodium 100 Mg Capsule) 100 mg PO DAILY [facility] Stop: 10/03/20 09:59 Last Admin: 09/03/20 09:51 Dose: 100 mg Documented by: RACHEL Enalaprilat (Enalaprilat Dihydrate Inj/Pf 2.5 Mg/2 Ml Sdv) 2.5 mg IV Q6HP PRN PRN Reason: SBP 180, DBP >105 Stop: 10/02/20 15:12 Last Admin: 09/04/20 04:08 Dose: 2.5 mg Documented by: Admin: 09/03/20 11:57 Dose: 2.5 mg Documented by: Admin: 09/03/20 04:02 Dose: 2.5 mg Documented by: Admin: 09/02/20 21:13 Dose: 2.5 mg Documented by: SHAWNA Famotidine (Famotidine 20 Mg Tablet) 20 mg PO Q12 [facility] Stop: 10/02/20 21:59 Last Admin: 09/03/20 21:09 Dose: 20 mg Documented by: Admin: 09/03/20 09:51 Dose: 20 mg Documented by: Admin: 09/02/20 21:12 Dose: 20 mg Documented by: JOSÉ LUIS Insulin Human Regular (Insulin Reg, Human 100 Unit/Ml 3 Ml Vial (Pyx)) 0 - 12 unit SUBCUT [facility]; Protocol Stop: 10/02/20 15:59 Last Admin: 09/03/20 21:08 Dose: Not Given Documented by: LUDA Non-Admin Reason: Not Indicated Admin: 09/03/20 15:39 Dose: 2 unit Documented by: RACHEL Cosigned by: MARTIN Admin: 09/03/20 11:58 Dose: 6 unit Documented by: RACHEL Cosigned by: MARTIN Admin: 09/03/20 07:35 Dose: Not Given Documented by: RACHEL Non-Admin Reason: Not Indicated Admin: 09/02/20 22:38 Dose: 2 unit Documented by: JOSÉ LUIS Cosigned by: SHAWNA Admin: 09/02/20 17:23 Dose: Not Given Documented by: MARIBELL Non-Admin Reason: Not Indicated Latanoprost (Latanoprost 0.005% Oph Soln 2.5 Ml) 1 drop OU QHS ANGE Stop: 10/02/20 21:59 Last Admin: 09/03/20 21:13 Dose: 1 drop Documented by: Admin: 09/02/20 21:20 Dose: Not Given Documented by: JOSÉ LUIS Non-Admin Reason: Patient Refused Loratadine (Loratadine 10 Mg Tablet) 10 mg PO DAILY [facility] Stop: 10/03/20 09:59 Last Admin: 09/03/20 09:51 Dose: 10 mg Documented by: RACHEL Oxycodone/Acetaminophen (Oxycodone-Acetaminophen 5-325 Mg Tablet) 1 tab PO Q6HP PRN PRN Reason: FOR PAIN SCALE 2-4 Stop: 09/09/20 15:03 Last Admin: 09/04/20 05:08 Dose: 1 tab Documented by: Admin: 09/03/20 13:37 Dose: 1 tab Documented by: Admin: 09/03/20 06:30 Dose: 1 tab Documented by: JOSÉ LUIS Admin: 09/02/20 17:29 Dose: 1 tab Documented by: MARIBELL Discontinued Medications Carvedilol (Carvedilol 6.25 Mg Tablet) 6.25 mg PO NOW ONE Stop: 09/03/20 16:46 Last Admin: 09/03/20 17:34 Dose: 6.25 mg Documented by: RACHEL Enalaprilat (Enalaprilat Dihydrate Inj/Pf 2.5 Mg/2 Ml Sdv) 2.5 mg IV NOW ONE Stop: 09/02/20 14:31 Last Admin: 09/02/20 15:10 Dose: 2.5 mg Documented by: MARIBELL Comments: Dose pushed by [facility]. Hydralazine HCl (Hydralazine Hcl Inj/Pf 20 Mg/1 Ml Sdv) 10 mg IV NOW ONE Stop: 09/02/20 15:01 Last Admin: 09/02/20 14:25 Dose: Not Given Documented by: MARIBELL Non-Admin Reason: medication out of stock per pharmacy Magnesium Sulfate (Magnesium Sulfate Rtu 4 Gm/100 Ml Premix Bag) 4 gm in 100 mls @ 25 mls/hr IV NOW ONE Stop: 09/03/20 18:29 Last Infusion: 09/03/20 20:34 Dose: 25 mls/hr, 25 mls/hr Documented by: LUDA Cosigned by: GERSON Admin: 09/03/20 15:11 Dose: 25 mls/hr, 25 mls/hr Documented by: RACHEL Cosigned by: MARTIN Lisinopril (Lisinopril 10 Mg Tablet) 30 mg PO NOW ONE Stop: 09/03/20 13:31 Last Admin: 09/03/20 12:51 Dose: 30 mg Documented by: RACHEL Metoprolol Succinate (Metoprolol Succinate 50 Mg Tab.Sr.24h) 50 mg PO DAILY ANGE Stop: 10/02/20 14:59 Last Admin: 09/03/20 09:51 Dose: 50 mg Documented by: Admin: 09/02/20 14:25 Dose: Not Given Documented by: MARIBELL Non-Admin Reason: Decreased Lab Values Metoprolol Succinate (Metoprolol Succinate 50 Mg Tab.Sr.24h) Confirm Administered Dose 50 mg PO .STK-MED ONE Stop: 09/02/20 13:52 Last Admin: 09/02/20 13:57 Dose: 50 mg Documented by: MARIBELL Potassium Chloride (Potassium Chloride 10 Meq Tablet.Er) 20 meq PO NOW ONE Stop: 09/02/20 15:11 Last Admin: 09/02/20 17:27 Dose: 20 meq Documented by: MARIBELL Potassium Chloride (Potassium Chloride 10 Meq Tablet.Er) Confirm Administered Dose 10 meq PO .STK-MED ONE Stop: 09/02/20 17:26 Last Admin: 09/02/20 17:30 Dose: Not Given Documented by: MARIBELL Non-Admin Reason: Documented Elsewhere Assessment & Plan - Diagnosis (1) CAD (coronary artery disease) Qualifiers: Coronary Disease-Associated Artery/Lesion type: bypass graft Associated angina: without angina Is this a current diagnosis for this admission?: Yes Plan: Status post non-STEMI in December 2002, status post 5 vessel CABG CABG on 01/08/2003 with HATCH to the LAD, sequential SVG to the ramus and OM, SVG to diagonal and SVG to PDA. The patient is functional class 1-2. His most recent Lexiscan on 08/10/17 at [facility] demonstrated mild ischemia in the basal mid inferior lateral wall with an SDS score of 2 which is prognostically normal. His echocardiogram in September 2018 demonstrated a normal ejection fraction without any evidence of aortic root aneurysm. He has remained free of ischemic symptoms since admission. Recommendations: -Continue with current medical management. -We will continue to follow with you. (2) Hypertension Qualifiers: Hypertension type: essential hypertension Qualified Code(s): I10 - Essential (primary) hypertension Plan: Unfortunately his blood pressure continues to be very uncontrolled. He was supposed to go to the OR today for hip surgery however his blood pressure this morning was a little bit over 200 mmHg systolic in both arms. At this time I am really concerned about acute worsening of his blood pressure post surgery due to surgical pain. It is my opinion that the patient's blood pressure needs to be better controlled before surgical intervention. This was discussed with orthopedic surgeon, Dr. Vail and it was decided to hold off on surgical intervention until at least Monday. At this point I will increase his lisinopril and add chlorthalidone with close attention to his blood pressure readings. Recommendations: -Continue with carvedilol 6.25 mg twice daily. -Increase lisinopril to 40 mg daily, first dose now please. -Start chlorthalidone 25 mg daily, first dose now please. -Low-sodium diet. -We will continue to follow with you. (3) Hyperlipidemia Plan: Continue with high intensity statin therapy. (4) PAF (paroxysmal atrial fibrillation) Is this a current diagnosis for this admission?: Yes Plan: The patient continues to have brief episodes of paroxysmal atrial fibrillation on telemetry. He remains asymptomatic. His [id number] score is 4 therefore he should be anticoagulated with full dose Eliquis or full dose Xarelto unless he is planned to undergo orthopedic surgery in which case anticoagulation will be held. Of note, if Eliquis is chosen for anticoagulation he should get the 5 mg twice daily dosing as he does not meet criteria for the lower dose.
[2020-09-04] MEDS: DOCUSATE SODIUM 100 MG CAPSULE PO SCH (09:39)
[2020-09-04] MEDS: LISINOPRIL 10 MG TABLET PO SCH (09:39)
[2020-09-04] MEDS: ALLOPURINOL 100 MG TABLET PO SCH ×2 (09:40→17:09)
[2020-09-04] MEDS: CYANOCOBALAMIN (VITAMIN B-12) 1,000 MCG TABLET PO SCH (09:40)
[2020-09-04] MEDS: FAMOTIDINE 20 MG TABLET PO SCH ×2 (09:40→22:20)
[2020-09-04] MEDS: LORATADINE 10 MG TABLET PO SCH (09:40)
[2020-09-04] MEDS: CARVEDILOL 6.25 MG TABLET PO SCH ×2 (09:41→22:21)
[2020-09-04] MEDS ORDERED: CARVEDILOL 6.25 MG TABLET PO SCH (10:00)
[2020-09-04] MEDS ORDERED: LISINOPRIL 10 MG TABLET PO SCH (10:00)
--- NOTE | 2020-09-04 14:35 | PDOC PROGRESS REPORT ---
Subjective Date:: 09/04/20 Subjective:: Patient denies any chest pain or any other pertinent symptoms however his blood pressure was supported controlled today and so his surgery still on hold probably till Monday. Patient remains in paroxysmal atrial fibrillation Reason For Visit: LEFT HIP FRACTURE, HYPERTENSIVE EMERGENCY,MULTIPLE Physical Exam Vital Signs: Temp Pulse Resp BP Pulse Ox 98.2 F 68 18 190/74 H 92 09/04/20 11:11 09/04/20 11:11 09/04/20 11:11 09/04/20 11:11 09/04/20 11:11 Intake & Output 09/03/20 09/04/20 09/05/20 06:59 06:59 06:59 Intake Total 496 100 230 Output Total 250 1150 200 Balance 246 -1050 30 Weight 82.4 kg 80.9 kg General appearance: PRESENT: no acute distress, well-developed, well-nourished Head exam: PRESENT: normocephalic, other - Left side of scalp superficial laceration as well as scattered bruises on his face Eye exam: PRESENT: conjunctiva pink, EOMI, PERRLA. ABSENT: scleral icterus Ear exam: PRESENT: normal external ear exam Mouth exam: PRESENT: moist, tongue midline Neck exam: ABSENT: carotid bruit, JVD, lymphadenopathy, thyromegaly Respiratory exam: PRESENT: clear to auscultation mony, unlabored. ABSENT: rales, rhonchi, wheezes Cardiovascular exam: PRESENT: irregular rhythm, +S1, +S2. ABSENT: diastolic murmur, rubs, systolic murmur Pulses: PRESENT: normal dorsalis pedis pul Vascular exam: PRESENT: normal capillary refill GI/Abdominal exam: PRESENT: normal bowel sounds, soft. ABSENT: distended, guarding, mass, organolmegaly, rebound, tenderness Rectal exam: PRESENT: deferred Extremities exam: PRESENT: full ROM. ABSENT: calf tenderness, clubbing, pedal edema Neurological exam: PRESENT: alert, awake, oriented to person, oriented to place, oriented to time, oriented to situation. ABSENT: motor sensory deficit Psychiatric exam: PRESENT: appropriate affect, normal mood. ABSENT: homicidal ideation, suicidal ideation Skin exam: PRESENT: dry, intact, warm. ABSENT: cyanosis, rash Results Laboratory Results: 09/03/20 05:56 09/03/20 05:56 09/04/20 05:56 Magnesium 1.8 Impressions: Cervical Spine CT 09/02/20 10:33 IMPRESSION: CHRONIC DEGENERATIVE CHANGES. NO ACUTE FINDINGS. Chest X-Ray 09/02/20 10:33 IMPRESSION: No evidence of acute intrathoracic process. Head CT 09/02/20 10:33 IMPRESSION: MILD CHRONIC CHANGES OF ATROPHY AND MICROVASCULAR ISCHEMIA. NO ACUTE PROCESS. EVIDENCE OF ACUTE STROKE: NO. Pelvis X-Ray 09/02/20 10:33 IMPRESSION: Transcervical left femur fracture with mild impaction. Hip X-Ray 09/02/20 11:11 IMPRESSION: Transcervical left femur fracture with mild impaction. No dislocation. Assessment and Plan - Diagnosis (1) Hypertensive emergency Is this a current diagnosis for this admission?: Yes (2) Closed left hip fracture Qualifiers: Encounter type: initial encounter Qualified Code(s): S72.002A - Fracture of unspecified part of neck of left femur, initial encounter for closed fracture Is this a current diagnosis for this admission?: Yes (3) PAF (paroxysmal atrial fibrillation) Is this a current diagnosis for this admission?: Yes (4) DM2 (diabetes mellitus, type 2) Qualifiers: Diabetes mellitus terminal clerk insulin use: with terminal clerk use Is this a current diagnosis for this admission?: Yes (5) Hypomagnesemia Is this a current diagnosis for this admission?: Yes - Plan Summary Summary: 75-year-old with left hip fracture sustained secondary to a fall while at physical therapy. Patient was found to have uncontrolled blood pressure at the time of arrival in the emergency room. Am concerned that either these or episodes of atrial fibrillation may have contributed to his fall. It appears the patient has paroxysmal atrial fibrillation. I understand that this has really never been documented on EKG although he had a transient episode when he was in the OR a few weeks ago. Patient was placed on Eliquis at the time and of course now with his multiple episodes of falling this will need to be reconsidered. He is to be evaluated for surgical intervention but will hold his Eliquis in the interim preoperatively. His blood pressure will also need to be better controlled. I will also go ahead and consult cardiology as he has been seen by Dr. Baker in the past. Patient has been placed on telemetry monitoring.Although I do not have an echocardiogram on file I understand that he has had an echo done in the industrial sales engineer office and so will wait for industrial sales engineer input. We will continue his metoprolol 09/03 Patient was started on Coreg by cardiology and lisinopril also. Patient did receive metoprolol on the day of admission as per the computer records. He was also placed on enalapril IV every 6 as needed. Patient was admitted less than 24 hours ago. He also has been seen by orthopedics and he likely will be taken to the OR in the next 24 to 48 hours. Eliquis remains on hold. Patient did have episodes of paroxysmal atrial fibrillation on telemetry. Patient had been on 2.5 mg twice daily of Eliquis since about June for paroxysmal atrial fibrillation. This is to be restarted at 5 mg twice a day postoperatively as patient does not meet the full criteria for reduced dosage. 09/04 blood pressure remains poorly controlled. I will make further adjustments to his medications. Patient will need his blood pressure to be controlled prior to surgery. Eliquis only remains on hold - Time Time Spent with patient: 15-24 minutes Medications reviewed and adjusted accordingly: Yes Anticipated Discharge Disposition: Home, Self Care Anticipated Discharge Timeframe: within 72 hours
[2020-09-04] MEDS: CHLORTHALIDONE 25 MG TABLET PO SCH (14:43)
[2020-09-04] MEDS: HYDRALAZINE HCL 50 MG TABLET PO SCH ×2 (14:43→22:20)
[2020-09-04] MEDS: ATORVASTATIN CALCIUM 40 MG TABLET PO SCH (22:20)
[2020-09-04] MEDS: LATANOPROST 0.005% OPH SOLN 2.5 ML OU SCH (22:20)
[2020-09-04] MEDS: TEMAZEPAM 7.5 MG CAPSULE PO PRN (22:26)
--- NOTE | 2020-09-05 08:15 | PDOC PROGRESS REPORT ---
Subjective Date:: 09/05/20 Subjective:: DAMARIS RAMAN JR is a 85 year old male, retired [email or web address] with history of coronary artery disease status post non-STEMI in December 2002, status post 5 vessel CABG CABG on 01/08/2003 with HATCH to the LAD, sequential SVG to the ramus and OM, SVG to diagonal and SVG to PDA, diabetes, hyperlipidemia, hypertension and paroxysmal atrial fibrillation who is consulted to our service for cardiology evaluation. The patient was admitted to our facility after suffering a left hip fracture after sustaining a fall during rehab. There was no syncope or presyncope. In the emergency room he was found to be very hypertensive however no antihypertensives were initiated at the time of admission. His low-dose Eliquis had been held for possible hip surgery. He had an uneventful night and remains asymptomatic this morning. He specifically denies chest pain, shortness of breath, RUFF, PND, lower extremity edema, palpitations, syncope and presyncope. Of note, he underwent shoulder surgery at this facility in June 2020 without cardiac complications except for brief episodes of atrial fibrillation in the OR. These episodes where confirmed during his stay post surgery. His telemetry shows normal sinus rhythm with episodes of atrial fibrillation with a controlled rate. 09/05/2020: The patient had an uneventful night. His blood pressure is improved with the up titration of lisinopril and addition of chlorthalidone and hydralazine. He has no cardiovascular complaints this morning and his telemetry continues to show paroxysmal atrial fibrillation with a controlled heart rate. Physical exam on 09/05/2020: GENERAL: Pleasant and conversational. Oriented x3 with normal mood. Not in acute distress. Well groomed and well developed. HEENT: Normocephalic, atraumatic. Pupils equal. Sclerae anicteric. Oropharynx moist. NECK: No JVD. No carotid bruits. LUNGS: Clear to auscultation bilaterally. Normal respiratory effort without t he use of accessory muscles or intercostal retractions. CARDIOVASCULAR: Irregularly irregular rate and rhythm, no murmurs, rubs, or gallops. PMI not displaced. ABDOMEN: No masses or tenderness to palpation. No bruit. No splenomegaly or hepatomegaly. No abdominal aorta bruit noted. EXTREMITIES: No edema, no cyanosis, no clubbing. +2 pulses femoral and pedal pulses bilaterally. SKIN: No lesions or rashes. MUSCULOSKELETAL: No chest tenderness to palpation. NEUROLOGIC: Nonfocal. No gross sensory or motor deficits bilateral upper or lower extremities. Cardiac studies: Echocardiogram on 10/04/18: -LV is normal in size. -Mild concentric LVH. -EF 60-65%. -Mild LAE. -Mild MR, trace TR, mild PI. -No evidence of aortic aneurysm. Echocardiogram on 08/11/17: -ppor quality study. -The left ventricle is normal in size. -Mild concentric LVH. -Ejection fractions 55%. -Grade 1 diastolic dysfunction. -Mild LAE. Maladies. -Mild MR, trace TR, mild PI. -The aortic valve is mildly sclerotic without stenosis or insufficiency. -Mildly dilated aortic root at 3.8 cm. Lexiscan nuclear stress test on 08/10/17 at [facility]: -Mild ischemia in the basal and mid inferolateral wall with an SDS score of 2. -Ejection fraction 46%. -No evidence of infarct. Reason For Visit: LEFT HIP FRACTURE, HYPERTENSIVE EMERGENCY,MULTIPLE Physical Exam Vital Signs: Temp Pulse Resp BP Pulse Ox 97.6 F 77 20 152/75 H 96 09/05/20 06:26 09/05/20 06:26 09/05/20 06:26 09/05/20 06:26 09/05/20 06:26 Intake & Output 09/03/20 09/04/20 09/05/20 06:59 06:59 06:59 Intake Total 496 100 460 Output Total 250 1150 550 Balance 246 -1050 -90 Weight 82.4 kg 80.9 kg 80.9 kg Results Laboratory Results: 09/03/20 05:56 09/03/20 05:56 Impressions: Cervical Spine CT 09/02/20 10:33 IMPRESSION: CHRONIC DEGENERATIVE CHANGES. NO ACUTE FINDINGS. Chest X-Ray 09/02/20 10:33 IMPRESSION: No evidence of acute intrathoracic process. Head CT 09/02/20 10:33 IMPRESSION: MILD CHRONIC CHANGES OF ATROPHY AND MICROVASCULAR ISCHEMIA. NO ACUTE PROCESS. EVIDENCE OF ACUTE STROKE: NO. Pelvis X-Ray 09/02/20 10:33 IMPRESSION: Transcervical left femur fracture with mild impaction. Hip X-Ray 09/02/20 11:11 IMPRESSION: Transcervical left femur fracture with mild impaction. No dislocation. 09/03/20 05:56 09/03/20 05:56 MCV 85 fl (80-97) 09/03/20 05:56 MCH 28.4 pg (27.0-33.4) 09/03/20 05:56 MCHC 33.5 g/dL (32.0-36.0) 09/03/20 05:56 RDW 14.0 % (11.5-14.0) 09/03/20 05:56 Seg Neutrophils % 75.2 % (42-78) 09/03/20 05:56 Chloride 101 mmol/L (98-107) 09/03/20 05:56 Carbon Dioxide 28 mmol/L (22-30) 09/03/20 05:56 Anion Gap 9 (5-19) 09/03/20 05:56 Est GFR ( Amer) > 60 (>60) 09/03/20 05:56 Glucose 141 mg/dL (75-110) H 09/03/20 05:56 Calcium 8.7 mg/dL (8.4-10.2) 09/03/20 05:56 Magnesium 1.8 mg/dL (1.6-2.3) 09/04/20 05:56 Current Medication List Generic Name Dose Route Start Last Admin Trade Name Freq PRN Reason Stop Dose Admin Acetaminophen 650 mg 09/02/20 15:04 Acetaminophen 325 Mg Tablet PO 10/02/20 15:03 Q4HP PRN FOR PAIN SCALE 1-2 Albuterol/Ipratropium 3 ml 09/02/20 15:04 Ipratropium/Albuterol 0.5-2.5 Mg/3 Ml Ampul NEB 10/02/20 15:03 RTQ6HP PRN SHORTNESS OF BREATH Allopurinol 100 mg 09/02/20 18:00 09/04/20 17:09 Allopurinol 100 Mg Tablet PO 10/02/20 17:59 100 mg BID ANGE Administration Atorvastatin Calcium 40 mg 09/02/20 22:00 09/04/20 22:20 Atorvastatin Calcium 40 Mg Tablet PO 10/02/20 21:59 40 mg QHS ANGE Administration Carvedilol 6.25 mg 09/04/20 10:00 09/04/20 22:21 Carvedilol 6.25 Mg Tablet PO 10/04/20 09:59 6.25 mg Q12 ANGE Administration Chlorthalidone 25 mg 09/04/20 10:30 09/04/20 14:43 Chlorthalidone 25 Mg Tablet PO 10/04/20 10:29 25 mg DAILY ANGE Administration Cyanocobalamin 1,000 mcg 09/03/20 10:00 09/04/20 09:40 Cyanocobalamin (Vitamin B-12) 1,000 Mcg Tablet PO 10/03/20 09:59 1,000 mcg DAILY ANGE Administration Dextrose 12.5 gm 09/02/20 15:23 Dextrose 50%-Water 25 Gm/50 Ml Disp.Syrin IV 10/02/20 15:22 PRN PRN FOR BG 50-69 IN ALERT PATIENT Protocol Dextrose 25 gm 09/02/20 15:23 Dextrose 50%-Water 25 Gm/50 Ml Disp.Syrin IV 10/02/20 15:22 PRN PRN PER PROTOCOL Protocol Docusate Sodium 100 mg 09/03/20 10:00 09/04/20 09:39 Docusate Sodium 100 Mg Capsule PO 10/03/20 09:59 100 mg DAILY ANGE Administration Enalaprilat 2.5 mg 09/02/20 15:13 09/04/20 04:08 Enalaprilat Dihydrate Inj/Pf 2.5 Mg/2 Ml Sdv IV 10/02/20 15:12 2.5 mg Q6HP PRN Administration SBP 180, DBP >105 Famotidine 20 mg 09/02/20 22:00 09/04/20 22:20 Famotidine 20 Mg Tablet PO 10/02/20 21:59 20 mg Q12 ANGE Administration Glucagon 1 mg 09/02/20 15:23 Glucagon,Human Recomb 1 Mg Inj IM 10/02/20 15:22 PRN PRN Evaluate for BG < 70 Protocol Glucose 15 gm 09/02/20 15:23 Dextrose 40% Gel 15 Gm Tube PO 10/02/20 15:22 PRN PRN FOR BG 50-69 IN ALERT PATIENT Protocol Glucose 30 gm 09/02/20 15:23 Dextrose 40% Gel 15 Gm Tube PO 10/02/20 15:22 PRN PRN FOR BG < 50 IN ALERT PATIENT Protocol Hydralazine HCl 10 mg 09/02/20 12:59 Hydralazine Hcl Inj/Pf 20 Mg/1 Ml Sdv IV 10/02/20 12:58 Q4HP PRN SBP >180, DBP >110 Hydralazine HCl 50 mg 09/04/20 15:00 09/04/20 22:20 Hydralazine Hcl 50 Mg Tablet PO 10/04/20 14:59 50 mg Q12 ANGE Administration Insulin Human Regular 0 - 12 unit 09/02/20 16:00 09/04/20 22:30 Insulin Reg, Human 100 Unit/Ml 3 Ml Vial (Pyx) SUBCUT 10/02/20 15:59 Not Given ACHS ANGE Protocol Latanoprost 1 drop 09/02/20 22:00 09/04/20 22:20 Latanoprost 0.005% Oph Soln 2.5 Ml OU 10/02/20 21:59 1 drop QHS ANGE Administration Lisinopril 40 mg 09/04/20 10:00 09/04/20 09:39 Lisinopril 10 Mg Tablet PO 10/04/20 09:59 40 mg DAILY ANGE Administration Loratadine 10 mg 09/03/20 10:00 09/04/20 09:40 Loratadine 10 Mg Tablet PO 10/03/20 09:59 10 mg DAILY ANGE Administration Magnesium Hydroxide 30 ml 09/02/20 15:04 Magnesium Hydroxide Susp 30 Ml Udcup PO 10/02/20 15:03 HSP PRN FOR CONSTIPATION Ondansetron HCl 4 mg 09/02/20 15:04 Ondansetron 4 Mg Tab.Rapdis PO 10/02/20 15:03 Q6HP PRN FOR NAUSEA/VOMITING Oxycodone/Acetaminophen 1 tab 09/02/20 15:04 09/04/20 22:26 Oxycodone-Acetaminophen 5-325 Mg Tablet PO 09/09/20 15:03 1 tab Q6HP PRN Administration FOR PAIN SCALE 2-4 Patient Own Medication 1 drop 09/02/20 22:00 Brimonidine Tartrate [Alphagan P] OU 10/02/20 21:59 Q12 ANGE Temazepam 7.5 mg 09/02/20 15:04 09/04/20 22:26 Temazepam 7.5 Mg Capsule PO 09/09/20 15:03 7.5 mg HSP PRN Administration SLEEP OR INSOMNIA Discontinued Medications Generic Name Dose Route Start Last Admin Trade Name Freq PRN Reason Stop Dose Admin Carvedilol 6.25 mg 09/04/20 10:00 Carvedilol 6.25 Mg Tablet PO 10/04/20 09:59 DAILY ANGE Carvedilol 6.25 mg 09/03/20 16:45 09/03/20 17:34 Carvedilol 6.25 Mg Tablet PO 09/03/20 16:46 6.25 mg NOW ONE Administration Dexamethasone Sodium Phosphate Confirm 09/04/20 06:51 Dexamethasone Sod Phosphate Inj 4 Mg/1 Ml Vial Administered 09/04/20 06:52 Dose 4 mg .ROUTE .STK-MED ONE Enalaprilat 2.5 mg 09/02/20 14:30 09/02/20 15:10 Enalaprilat Dihydrate Inj/Pf 2.5 Mg/2 Ml Sdv IV 09/02/20 14:31 2.5 mg NOW ONE Administration Ephedrine Sulfate Confirm 09/04/20 06:51 Ephedrine Sulfate Inj 50 Mg/1 Ml Ampule Administered 09/04/20 06:52 Dose 50 mg .ROUTE .STK-MED ONE Fentanyl Citrate Confirm 09/04/20 06:51 Fentanyl Citrate Inj/Pf 100 Mcg/2 Ml Ampul Administered 09/04/20 06:52 Dose 100 mcg .ROUTE .STK-MED ONE Hydralazine HCl 10 mg 09/02/20 15:00 09/02/20 14:25 Hydralazine Hcl Inj/Pf 20 Mg/1 Ml Sdv IV 09/02/20 15:01 Not Given NOW ONE Hydromorphone HCl Confirm 09/04/20 06:52 Hydromorphone Hcl Inj/Pf 2 Mg/Ml Ampule Administered 09/04/20 06:53 Dose 2 mg .ROUTE .STK-MED ONE Cefazolin Sodium/Dextrose 2 gm in 50 mls @ 100 mls/hr 09/04/20 05:00 Ancef Rtu 2 Gm/D5w 50 Ml Premix Bag IV 09/04/20 23:59 PREOP PRN THIS MED IS NOT "PRN" Magnesium Sulfate 4 gm in 100 mls @ 25 mls/hr 09/03/20 14:30 09/03/20 20:34 Magnesium Sulfate Rtu 4 Gm/100 Ml Premix Bag IV 09/03/20 18:29 Infused NOW ONE Infusion Ketamine HCl Confirm 09/04/20 06:51 Ketamine Hcl Inj 500 Mg/10 Ml Vial Administered 09/04/20 06:52 Dose 500 mg .ROUTE .STK-MED ONE Lisinopril 30 mg 09/04/20 10:00 Lisinopril 10 Mg Tablet PO 10/04/20 09:59 DAILY ANGE Lisinopril 30 mg 09/03/20 13:30 09/03/20 12:51 Lisinopril 10 Mg Tablet PO 09/03/20 13:31 30 mg NOW ONE Administration Metoprolol Succinate 50 mg 09/02/20 15:00 09/03/20 09:51 Metoprolol Succinate 50 Mg Tab.Sr.24h PO 10/02/20 14:59 50 mg DAILY ANGE Administration Metoprolol Succinate Confirm 09/02/20 13:51 09/02/20 13:57 Metoprolol Succinate 50 Mg Tab.Sr.24h Administered 09/02/20 13:52 50 mg Dose Administration 50 mg PO .STK-MED ONE Midazolam HCl Confirm 09/04/20 06:51 Midazolam 2 Mg/2 Ml Inj Administered 09/04/20 06:52 Dose 2 mg .ROUTE .STK-MED ONE Ondansetron HCl Confirm 09/04/20 06:51 Ondansetron Hcl Inj/Pf 4 Mg/2 Ml Sdv Administered 09/04/20 06:52 Dose 4 mg .ROUTE .STK-MED ONE Potassium Chloride 20 meq 09/02/20 15:10 09/02/20 17:27 Potassium Chloride 10 Meq Tablet.Er PO 09/02/20 15:11 20 meq NOW ONE Administration Potassium Chloride Confirm 09/02/20 17:25 09/02/20 17:30 Potassium Chloride 10 Meq Tablet.Er Administered 09/02/20 17:26 Not Given Dose 10 meq PO .STK-MED ONE Propofol Confirm 09/04/20 06:52 Propofol Inj 200 Mg/20 Ml Vial Administered 09/04/20 06:53 Dose 200 mg IV .STK-MED ONE Tranexamic Acid 1,000 mg 09/04/20 05:00 Tranexamic Acid Inj/Pf 1,000 Mg/10 Ml Sdv IV 09/04/20 23:59 PREOP PRN THIS MED IS NOT "PRN" Assessment & Plan - Diagnosis (1) CAD (coronary artery disease) Qualifiers: Coronary Disease-Associated Artery/Lesion type: bypass graft Associated angina: without angina Is this a current diagnosis for this admission?: Yes Plan: Status post non-STEMI in December 2002, status post 5 vessel CABG CABG on 01/08/2003 with HATCH to the LAD, sequential SVG to the ramus and OM, SVG to diagonal and SVG to PDA. The patient is functional class 1-2. His most recent Lexiscan on 08/10/17 at [facility] demonstrated mild ischemia in the basal mid inferior lateral wall with an SDS score of 2 which is prognostically normal. His echocardiogram in September 2018 demonstrated a normal ejection fraction without any evidence of aortic root aneurysm. He has remained free of ischemic symptoms since admission. Recommendations: -Continue with current medical management. -Cardiology does not have further recommendations therefore we will sign off the case for now. Please reconsult if clinically indicated. (2) Hypertension Qualifiers: Hypertension type: essential hypertension Qualified Code(s): I10 - Essential (primary) hypertension Plan: His blood pressure, although not at goal of 130/80 or below, it is much improved and the patient continues to be asymptomatic. At this point the patient may be taken to the OR for his much-needed hip surgery. Recommendations: -Continue with current medical management. -The patient may be taken to the OR for hip surgery. -Continue with same antihypertensive regimen in the perioperative period. -Cardiology does not have further recommendations therefore we will sign off the case for now and will defer further hypertension management to the hospitalist team. (3) Hyperlipidemia Is this a current diagnosis for this admission?: Yes Plan: Continue with high intensity statin therapy. (4) PAF (paroxysmal atrial fibrillation) Is this a current diagnosis for this admission?: Yes Plan: The patient continues to have brief episodes of paroxysmal atrial fibrillation on telemetry. He remains asymptomatic. His [id number] score is 4 therefore he should be anticoagulated with full dose Eliquis or full dose Xarelto as soon as surgically feasible in the postop period.
[2020-09-05] MEDS: INSULIN REG, HUMAN 100 UNIT/ML 3 ML VIAL (PYX) SUBCUT SCH ×3 (08:36→16:36)
[2020-09-05] MEDS: DOCUSATE SODIUM 100 MG CAPSULE PO SCH (10:03)
[2020-09-05] MEDS: CARVEDILOL 6.25 MG TABLET PO SCH (10:03)
[2020-09-05] MEDS: HYDRALAZINE HCL 50 MG TABLET PO SCH (10:03)
[2020-09-05] MEDS: ALLOPURINOL 100 MG TABLET PO SCH ×2 (10:04→18:06)
[2020-09-05] MEDS: LORATADINE 10 MG TABLET PO SCH (10:04)
[2020-09-05] MEDS: CYANOCOBALAMIN (VITAMIN B-12) 1,000 MCG TABLET PO SCH (10:04)
[2020-09-05] MEDS: FAMOTIDINE 20 MG TABLET PO SCH (10:04)
[2020-09-05] MEDS: LISINOPRIL 10 MG TABLET PO SCH (10:04)
[2020-09-05] MEDS: CHLORTHALIDONE 25 MG TABLET PO SCH (10:05)
[2020-09-05] MEDS: OXYCODONE-ACETAMINOPHEN 5-325 MG TABLET PO PRN ×2 (11:55→18:06)
--- NOTE | 2020-09-05 14:25 | PDOC PROGRESS REPORT ---
Subjective Date:: 09/05/20 Subjective:: Patient denies any chest pain or any other pertinent symptoms however his blood pressure was supported controlled today and so his surgery still on hold probably till Monday. Patient remains in paroxysmal atrial fibrillation 09/05 Remains stable, awaiting OR in am Reason For Visit: LEFT HIP FRACTURE, HYPERTENSIVE EMERGENCY,MULTIPLE Physical Exam Vital Signs: Temp Pulse Resp BP Pulse Ox 98.4 F 74 17 130/65 H 96 09/05/20 10:55 09/05/20 10:55 09/05/20 10:55 09/05/20 10:55 09/05/20 10:55 Intake & Output 09/04/20 09/05/20 09/06/20 06:59 06:59 06:59 Intake Total 100 460 236 Output Total 1150 550 200 Balance -1050 -90 36 Weight 80.9 kg 80.9 kg General appearance: PRESENT: no acute distress, well-developed, well-nourished Head exam: PRESENT: normocephalic, other - L scapula superficial resolution Bruises on face elbow and knee Eye exam: PRESENT: conjunctiva pink, EOMI, PERRLA. ABSENT: scleral icterus Ear exam: PRESENT: normal external ear exam Mouth exam: PRESENT: moist, tongue midline Neck exam: ABSENT: carotid bruit, JVD, lymphadenopathy, thyromegaly Respiratory exam: PRESENT: clear to auscultation mony. ABSENT: rales, rhonchi, wheezes Cardiovascular exam: PRESENT: irregular rhythm, +S1, +S2. ABSENT: diastolic murmur, rubs, systolic murmur Pulses: PRESENT: normal dorsalis pedis pul Vascular exam: PRESENT: normal capillary refill GI/Abdominal exam: PRESENT: normal bowel sounds, soft. ABSENT: distended, guarding, mass, organolmegaly, rebound, tenderness Rectal exam: PRESENT: deferred Extremities exam: ABSENT: calf tenderness, clubbing, pedal edema Neurological exam: PRESENT: alert, awake, oriented to person, oriented to place, oriented to time, oriented to situation, CN II-XII grossly intact. ABSENT: motor sensory deficit Psychiatric exam: PRESENT: appropriate affect, normal mood. ABSENT: homicidal ideation, suicidal ideation Skin exam: PRESENT: dry, intact, warm. ABSENT: cyanosis, rash Results Laboratory Results: 09/03/20 05:56 09/03/20 05:56 Impressions: Cervical Spine CT 09/02/20 10:33 IMPRESSION: CHRONIC DEGENERATIVE CHANGES. NO ACUTE FINDINGS. Chest X-Ray 09/02/20 10:33 IMPRESSION: No evidence of acute intrathoracic process. Head CT 09/02/20 10:33 IMPRESSION: MILD CHRONIC CHANGES OF ATROPHY AND MICROVASCULAR ISCHEMIA. NO ACUTE PROCESS. EVIDENCE OF ACUTE STROKE: NO. Pelvis X-Ray 09/02/20 10:33 IMPRESSION: Transcervical left femur fracture with mild impaction. Hip X-Ray 09/02/20 11:11 IMPRESSION: Transcervical left femur fracture with mild impaction. No dislocation. Assessment and Plan - Diagnosis (1) Hypertensive emergency Is this a current diagnosis for this admission?: Yes (2) Closed left hip fracture Qualifiers: Encounter type: initial encounter Qualified Code(s): S72.002A - Fracture of unspecified part of neck of left femur, initial encounter for closed fracture Is this a current diagnosis for this admission?: Yes (3) PAF (paroxysmal atrial fibrillation) Is this a current diagnosis for this admission?: Yes (4) DM2 (diabetes mellitus, type 2) Qualifiers: Diabetes mellitus shelter insulin use: with shelter use Is this a current diagnosis for this admission?: Yes (5) Hypomagnesemia Is this a current diagnosis for this admission?: Yes - Plan Summary Summary: 75-year-old with left hip fracture sustained secondary to a fall while at physical therapy. Patient was found to have uncontrolled blood pressure at the time of arrival in the emergency room. Am concerned that either these or episodes of atrial fibrillation may have contributed to his fall. It appears the patient has paroxysmal atrial fibrillation. I understand that this has really never been documented on EKG although he had a transient episode when he was in the OR a few weeks ago. Patient was placed on Eliquis at the time and of course now with his multiple episodes of falling this will need to be reconsidered. He is to be evaluated for surgical intervention but will hold his Eliquis in the interim preoperatively. His blood pressure will also need to be better controlled. I will also go ahead and consult cardiology as he has been seen by Dr. Baker in the past. Patient has been placed on telemetry monitoring.Although I do not have an echocardiogram on file I understand that he has had an echo done in the cement[facility] office and so will wait for cementer hand input. We will continue his metoprolol 09/03 Patient was started on Coreg by cardiology and lisinopril also. Patient did receive metoprolol on the day of admission as per the computer records. He was also placed on enalapril IV every 6 as needed. Patient was admitted less than 24 hours ago. He also has been seen by orthopedics and he likely will be taken to the OR in the next 24 to 48 hours. Eliquis remains on hold. Patient did have episodes of paroxysmal atrial fibrillation on telemetry. Patient had been on 2.5 mg twice daily of Eliquis since about June for paroxysmal atrial fibrillation. This is to be restarted at 5 mg twice a day postoperatively as patient does not meet the full criteria for reduced dosage. 09/04 blood pressure remains poorly controlled. I will make further adjustments to his medications. Patient will need his blood pressure to be controlled prior to surgery. Eliquis only remains on hold 09/05 Patient anxious about his surgery. He understands that his blood pressure needs to be better controlled before this can be undertaken. Hydralazine was added to his regimen yesterday and his blood pressure definitely much better today. He is tentatively scheduled for OR in a.m. He continues to go in and out of A. fib but his rate is controlled. Eliquis remains on hold pending OR. This should be started at 5 mg postop if everything else is equal - Time Time Spent with patient: 15-24 minutes Medications reviewed and adjusted accordingly: Yes Anticipated Discharge Disposition: Home with Home Health Anticipated Discharge Timeframe: within 72 hours
--- NOTE | 2020-09-05 16:13 | PDOC PROGRESS REPORT ---
Subjective Date:: 09/05/20 Subjective:: The patient is resting comfortably. He has no complaints. Reason For Visit: LEFT HIP FRACTURE, HYPERTENSIVE EMERGENCY,MULTIPLE Left hip displaced basicervical fracture, uncontrolled hypertension Physical Exam Vital Signs: Temp Pulse Resp BP Pulse Ox 98.4 F 74 17 130/65 H 96 09/05/20 10:55 09/05/20 10:55 09/05/20 10:55 09/05/20 10:55 09/05/20 10:55 Intake & Output 09/04/20 09/05/20 09/06/20 06:59 06:59 06:59 Intake Total 100 460 236 Output Total 1150 550 200 Balance -1050 -90 36 Weight 80.9 kg 80.9 kg General appearance: PRESENT: no acute distress, cooperative Head exam: PRESENT: atraumatic, normocephalic Respiratory exam: PRESENT: clear to auscultation mony. ABSENT: rales, rhonchi, wheezes Cardiovascular exam: PRESENT: RRR. ABSENT: diastolic murmur, rubs, systolic murmur Musculoskeletal exam: PRESENT: other - The left lower extremity is shortened and externally rotated. The patient is able to dorsiflex and plantarflex his ankle. Sensation is intact to touch. Results Laboratory Results: 09/03/20 05:56 09/03/20 05:56 Impressions: Cervical Spine CT 09/02/20 10:33 IMPRESSION: CHRONIC DEGENERATIVE CHANGES. NO ACUTE FINDINGS. Chest X-Ray 09/02/20 10:33 IMPRESSION: No evidence of acute intrathoracic process. Head CT 09/02/20 10:33 IMPRESSION: MILD CHRONIC CHANGES OF ATROPHY AND MICROVASCULAR ISCHEMIA. NO ACUTE PROCESS. EVIDENCE OF ACUTE STROKE: NO. Pelvis X-Ray 09/02/20 10:33 IMPRESSION: Transcervical left femur fracture with mild impaction. Hip X-Ray 09/02/20 11:11 IMPRESSION: Transcervical left femur fracture with mild impaction. No dislocation. Assessment & Plan - Diagnosis (1) Subcapital fracture of left hip Qualifiers: Encounter type: initial encounter Fracture type: closed Qualified Code(s): S72.012A - Unspecified intracapsular fracture of left femur, initial encounter for closed fracture Is this a current diagnosis for this admission?: Yes (2) CAD (coronary artery disease) Qualifiers: Coronary Disease-Associated Artery/Lesion type: bypass graft Associated ang diane: without angina Is this a current diagnosis for this admission?: Yes (3) PAF (paroxysmal atrial fibrillation) Is this a current diagnosis for this admission?: Yes - Time Anticipated Discharge Disposition: Shelter Facility Anticipated Discharge Timeframe: within 72 hours Critical Time spent with patient: 15-24 minutes - Plan Summary Plan Summary: The patient is a pleasant 85-year-old man with a displaced subcapital fracture of his left hip. Surgery had been delayed due to uncontrolled hypertension. Medications were titrated by Dr. Joshua from cardiology. I spoke with Dr. Joshua this morning. The patient's blood pressure is now stable and the patient is cleared to undergo a left hip hemiarthroplasty. Surgery is scheduled for tomorrow morning.
[2020-09-06] MEDS: INSULIN REG, HUMAN 100 UNIT/ML 3 ML VIAL (PYX) SUBCUT SCH ×5 (00:10→22:56)
[2020-09-06] MEDS: CARVEDILOL 6.25 MG TABLET PO SCH ×3 (00:11→22:54)
[2020-09-06] MEDS: FAMOTIDINE 20 MG TABLET PO SCH ×3 (00:11→22:55)
[2020-09-06] MEDS: HYDRALAZINE HCL 50 MG TABLET PO SCH ×3 (00:12→22:55)
[2020-09-06] MEDS: ATORVASTATIN CALCIUM 40 MG TABLET PO SCH ×2 (00:12→22:56)
[2020-09-06] MEDS: LATANOPROST 0.005% OPH SOLN 2.5 ML OU SCH ×2 (00:22→22:56)
[2020-09-06] MEDS: OXYCODONE-ACETAMINOPHEN 5-325 MG TABLET PO PRN (00:44)
[2020-09-06] MEDS ORDERED: CEFAZOLIN SODIUM 2 GM in DEXTROSE 5%-WATER 100 ML IV PRN (05:00)
[2020-09-06] MEDS ORDERED: TRANEXAMIC ACID INJ/PF 1,000 MG/10 ML SDV IV PRN (05:00)
[2020-09-06 07:22] LABS: ABSOLUTE EOSINOPHILS # (AUTO) 0.2 10^3/uL (0.0-0.6); ABSOLUTE LYMPHOCYTES (AUTO) 1.4 10^3/uL (0.5-4.7); ABSOLUTE MONOCYTES (AUTO) 1.4 10^3/uL (0.1-1.4); ABSOLUTE NEUT (AUTO) 6.4 10^3/uL (1.7-8.2); BASOPHILS % (AUTO) 0.4 % (0-2); EOSINOPHILS % (AUTO) 2.3 % (0-6); HEMATOCRIT 33.6 % (37.9-51.0); HEMOGLOBIN 11.5 g/dL (13.5-17.0); LYMPHOCYTES % (AUTO) 15.3 % (13-45); MEAN CORPUSCULAR HEMOGLOBIN 28.6 pg (27.0-33.4); MEAN CORPUSCULAR HGB CONC 34.2 g/dL (32.0-36.0); MEAN CORPUSCULAR VOLUME 84 fl (80-97); PLATELET COUNT 233 10^3/uL (150-450); RED BLOOD COUNT 4.02 10^6/uL (4.35-5.55); RED CELL DISTRIBUTION WIDTH 14.3 % (11.5-14.0); TOTAL CELLS COUNTED % (AUTO) 100 %; WHITE BLOOD COUNT 9.5 10^3/uL (4.0-10.5)
[2020-09-06 07:45] LABS: ANION GAP 10 (5-19); BLOOD UREA NITROGEN 19 mg/dL (7-20); CALCIUM 8.9 mg/dL (8.4-10.2); CARBON DIOXIDE 27 mmol/L (22-30); CHLORIDE 93 mmol/L (98-107); GLUCOSE 147 mg/dL (75-110); POTASSIUM 3.1 mmol/L (3.6-5.0)
[2020-09-06] MEDS ORDERED: ONDANSETRON HCL INJ/PF 4 MG/2 ML SDV ONE (08:04)
[2020-09-06] MEDS ORDERED: TRANEXAMIC ACID INJ/PF 1,000 MG/10 ML SDV ONE (08:04)
[2020-09-06] MEDS ORDERED: MIDAZOLAM 2 MG/2 ML INJ ONE (08:04)
[2020-09-06] MEDS ORDERED: PROPOFOL INJ 200 MG/20 ML VIAL IV ONE (08:04)
[2020-09-06] MEDS ORDERED: PHENYLEPHRINE HCL INJ/PF 10 MG/1 ML SDV ONE (08:06)
[2020-09-06] MEDS ORDERED: BACITRACIN INJ 50,000 UNIT VIAL ONE (08:25)
[2020-09-06] MEDS ORDERED: THROMBIN (BOVINE) 5000 UNIT EPITAXIS KIT ONE (08:25)
[2020-09-06] MEDS ORDERED: CEFAZOLIN INJ 1 GM VIAL ONE (08:25)
[2020-09-06] MEDS ORDERED: VANCOMYCIN HCL INJ 1000 MG VIAL ONE (08:57)
[2020-09-06] MEDS ORDERED: KETAMINE HCL INJ 500 MG/10 ML VIAL ONE (08:57)
[2020-09-06] MEDS ORDERED: FENTANYL CITRATE INJ/PF 100 MCG/2 ML AMPUL IV PRN ×3 (09:41)
[2020-09-06] MEDS ORDERED: DIPHENHYDRAMINE HCL 50 MG/ML VIAL IV PRN (09:41)
[2020-09-06] MEDS ORDERED: MEPERIDINE HCL/PF INJ 25 MG/1 ML DISP.SYRIN IV PRN (09:41)
--- NOTE | 2020-09-06 11:11 | Operative Report ---
Operative Report DATE OF SURGERY: 09/06/20 PREOPERATIVE DIAGNOSIS: Left hip displaced subcapital fracture POSTOPERATIVE DIAGNOSIS: Same OPERATION: Left hip hemiarthroplasty SURGEON: RAOUL ROBLES ANESTHESIA: Spinal COMPLICATIONS: None ESTIMATED BLOOD LOSS: 100 cc INTRAOPERATIVE FINDINGS: Same PROCEDURE: Indications for procedure: The patient is a pleasant 85-year-old man who sustained a low-energy fall resulting in a displaced subcapital left hip fracture. Description of procedure: Following the induction of a spinal anesthetic and 2 g of Ancef, the patient was positioned lateral on a pegboard. All bony prominences were padded and an axillary roll was placed. The left lower extremity was sterilely prepped with ChloraPrep and draped in standard fashion. A posterior approach to the hip was performed. A sharp incision was performed through skin. Bovie electrocautery was done through the subcutaneous fat and all superficial bleeders were coagulated. The fascia was split and a Charnley retractor placed. A Hohmann was used to protect the gluteus medius and minimus, and the external rotators were taken off of the hip with Bovie electrocautery. Femoral neck cut was then made. Femoral head was sized. Box osteotome was used to open the canal. Sequential broaching was performed to a size 5 trial which had good fit. Trial implants were then placed. There was excellent stability with a standard neck and 51 mm head. The trial implants were removed. Irrigation was performed with both pulsatile lavage and urosept. The final implants were then impacted into place. The hip was taken through a full range of motion and found to be quite stable. Additional irrigation was performed with both pulsatile lavage and irrisept. The external rotators were repaired back to bone using #1 Ethibond. 1 g of vancomycin was then placed in the wound. The fascia was reapproximated with #1 barbed suture. The subcutaneous tissue was closed with 2-O barbed suture. The skin was reapproximated with 3-O barbed Monocryl. The skin was then over closed with a tape and sterile glue construct. A sterile dressing was applied. The patient tolerated procedure well without complication was brought recovery room in stable condition. Implants: 1. Malcolm Accolade 132 degree neck angle hip stem #5 2. Malcolm Unitrax endoprosthetic head 51 mm 3. Unitrax neck adjustment sleeve standard offset
[2020-09-06] MEDS ORDERED: OXYCODONE-ACETAMINOPHEN 5-325 MG TABLET PO PRN (11:37)
--- NOTE | 2020-09-06 12:12 | RADIOLOGY REPORT (SQ) ---
EXAM DESCRIPTION: HIP LEFT AP/LATERAL IMAGES COMPLETED DATE/TIME: 09/06/2020 10:44 am REASON FOR STUDY: POST OP HIP FRACTURE COMPARISON: None. NUMBER OF VIEWS: Two views. TECHNIQUE: AP pelvis and additional cross-table lateralview of the left hip. LIMITATIONS: None. FINDINGS: MINERALIZATION: Normal. LEFT HIP: Left hip arthroplasty with components in good alignment. No fracture or cortical disruptio n. Expected postoperative changes in the soft tissues. RIGHT HIP: No fracture or dislocation. No worrisome bone lesions. Limited views. PUBIS AND ISCHIUM: No fracture. PELVIS: No fracture. SACRUM: No fracture or dislocation. No worrisome bone lesions. LOWER LUMBAR SPINE: No fracture or dislocation. No worrisome bone lesions. No significant disc disea se. SOFT TISSUES: Expected postoperative changes. Vascular calcifications. OTHER: No other significant finding. IMPRESSION: Left hip arthroplasty in good alignment. TECHNICAL DOCUMENTATION: JOB ID: [id number] 2010 [employer]- All Rights Reserved Reading location - IP/workstation name: [id number]
[2020-09-06] MEDS: CHLORTHALIDONE 25 MG TABLET PO SCH (12:18)
[2020-09-06] MEDS: LISINOPRIL 10 MG TABLET PO SCH (12:19)
[2020-09-06] MEDS: ALLOPURINOL 100 MG TABLET PO SCH ×2 (12:19→17:54)
[2020-09-06] MEDS: DOCUSATE SODIUM 100 MG CAPSULE PO SCH (12:20)
[2020-09-06] MEDS: LORATADINE 10 MG TABLET PO SCH (12:20)
[2020-09-06] MEDS: CYANOCOBALAMIN (VITAMIN B-12) 1,000 MCG TABLET PO SCH (12:20)
--- NOTE | 2020-09-06 17:44 | PDOC PROGRESS REPORT ---
Subjective Date:: 09/06/20 Subjective:: The patient is an 85-year-old male with a past medical history significant for CAD, remote TX and CABG, hyperlipidemia, hypertension, sleep apnea, DM 2, GERD, arthritis, PTSD, and anemia who was admitted 09/02/2020 with a closed left hip fracture. He is now postop left hip hemiarthroplasty. Patient was seen on afternoon rounds following return from the OR. He is alert and oriented x4. He is found resting in bed, comfortably, on supplemental oxygen by nasal cannula 2 L/min. He is not home O2 dependent. He reports that he is feeling well today other than persistent left hip pain and fatigue. He does ask that I informed the nurse that he is ready for pain medication. Ot herwise, he denies all symptoms. He specifically denies fever, chest pain, palpitations, dyspnea, cough, abdominal pain, nausea, vomiting, diarrhea, and constipation. Has no questions or concerns at this time. No concerns per nursing. Reason For Visit: LEFT HIP FRACTURE, HYPERTENSIVE EMERGENCY,MULTIPLE Physical Exam Vital Signs: Temp Pulse Resp BP Pulse Ox 98.4 F 78 16 141/57 H 93 09/06/20 16:00 09/06/20 16:00 09/06/20 16:00 09/06/20 16:00 09/06/20 16:00 Intake & Output 09/05/20 09/06/20 09/07/20 06:59 06:59 06:59 Intake Total 949 069 4421 Output Total 550 1075 150 Balance -90 -839 1550 Weight 80.9 kg 80.9 kg General appearance: PRESENT: no acute distress, cooperative, well-developed, well-nourished Head exam: PRESENT: atraumatic, normocephalic Eye exam: PRESENT: conjunctiva pink, EOMI, PERRLA. ABSENT: scleral icterus Mouth exam: PRESENT: moist, tongue midline Respiratory exam: PRESENT: clear to auscultation mony, symmetrical, unlabored, other - Supplemental oxygen by nasal cannula.. ABSENT: rales, rhonchi, wheezes Cardiovascular exam: PRESENT: irregular rhythm, +S1, +S2. ABSENT: diastolic mur mur, rubs, systolic murmur Pulses: PRESENT: normal dorsalis pedis pul Vascular exam: PRESENT: normal capillary refill Extremities exam: PRESENT: tenderness - Left hip. ABSENT: calf tenderness, clubbing, full ROM, pedal edema Neurological exam: PRESENT: alert, awake, oriented to person, oriented to place, oriented to time, oriented to situation, CN II-XII grossly intact. ABSENT: motor sensory deficit Psychiatric exam: PRESENT: appropriate affect, normal mood. ABSENT: homicidal ideation, suicidal ideation Skin exam: PRESENT: dry, intact, warm. ABSENT: cyanosis, rash Results Laboratory Results: 09/06/20 06:21 09/06/20 06:21 09/06/20 09/06/20 06:21 06:21 WBC 9.5 RBC 4.02 L Hgb 11.5 L Hct 33.6 L MCV 84 MCH 28.6 MCHC 34.2 RDW 14.3 H Plt Count 233 Seg Neutrophils % 67.0 Sodium 130.3 L Potassium 3.1 L Chloride 93 L Carbon Dioxide 27 Anion Gap 10 BUN 19 Creatinine 0.75 Est GFR ( Amer) > 60 Glucose 147 H Calcium 8.9 Magnesium 1.9 Impressions: Cervical Spine CT 09/02/20 10:33 IMPRESSION: CHRONIC DEGENERATIVE CHANGES. NO ACUTE FINDINGS. Chest X-Ray 09/02/20 10:33 IMPRESSION: No evidence of acute intrathoracic process. Head CT 09/02/20 10:33 IMPRESSION: MILD CHRONIC CHANGES OF ATROPHY AND MICROVASCULAR ISCHEMIA. NO ACUTE PROCESS. EVIDENCE OF ACUTE STROKE: NO. Pelvis X-Ray 09/02/20 10:33 IMPRESSION: Transcervical left femur fracture with mild impaction. Hip X-Ray 09/06/20 11:41 IMPRESSION: Left hip arthroplasty in good alignment. Assessment and Plan - Diagnosis (1) Closed left hip fracture Qualifiers: Encounter type: initial encounter Qualified Code(s): S72.002A - Fracture of unspecified part of neck of left femur, initial encounter for closed fracture Is this a current diagnosis for this admission?: Yes Plan: Now status post left hemiarthroplasty by Dr. Vail today. Continue home dose Eliquis; cleared by orthopedic surgeon. Analgesics as needed. Discharge planning consulted. (2) Hypertensive emergency Is this a current diagnosis for this admission?: Yes Plan: Resolved. Blood pressures are now adaptable at 141/57. Continue to provide appropriate pain control. Continue carvedilol 6.25 mg twice daily, Hydralazine 50 mg twice daily, and Lisinopril 40 mg daily. As needed Vasotec and IV hydralazine for blood pressure control. Cardiology was consulted; appreciate Dr. Baker's assistance. Cardiac diet. (3) DM2 (diabetes mellitus, type 2) Qualifiers: Diabetes mellitus [facility] insulin use: with contingents supervisor use Is this a current diagnosis for this admission?: Yes Plan: Holding oral medications while admitted. Patient is placed on a consistent carb diet. Accu-Cheks before meals and at bedtime with Humalog for sliding scale coverage. Hypoglycemia protocol in place. (4) PAF (paroxysmal atrial fibrillation) Is this a current diagnosis for this admission?: Yes Plan: Continues to have brief episodes of PAF. [id number] score is 4 Continue to monitor on telemetry. Resume home dose Eliquis. Carvedilol as recommended by Dr. Baker. (5) Hypomagnesemia Is this a current diagnosis for this admission?: Yes Plan: Replete. - Plan Summary Summary: - Time Time Spent with patient: 25-34 minutes Medications reviewed and adjusted accordingly: Yes Anticipated Discharge Disposition: Group Home Facility Anticipated Discharge Timeframe: within 72 hours
[2020-09-06] MEDS: CEFAZOLIN 2 GM/D5W RTU 2 GM/50 ML RTUPB IV SCH (17:55)
[2020-09-06] MEDS ORDERED: CEFAZOLIN SODIUM 2 GM in DEXTROSE 5%-WATER 100 ML IV SCH (18:00)
[2020-09-07] MEDS: ACETAMINOPHEN 325 MG TABLET PO PRN ×2 (03:52→17:34)
[2020-09-07] MEDS: CEFAZOLIN 2 GM/D5W RTU 2 GM/50 ML RTUPB IV SCH ×2 (03:52→10:03)
[2020-09-07 06:15] LABS: HEMATOCRIT 31.1 % (37.9-51.0); HEMOGLOBIN 10.5 g/dL (13.5-17.0); MEAN CORPUSCULAR HEMOGLOBIN 28.2 pg (27.0-33.4); MEAN CORPUSCULAR HGB CONC 33.8 g/dL (32.0-36.0); MEAN CORPUSCULAR VOLUME 83 fl (80-97); PLATELET COUNT 216 10^3/uL (150-450); RED BLOOD COUNT 3.73 10^6/uL (4.35-5.55); WHITE BLOOD COUNT 13.8 10^3/uL (4.0-10.5)
[2020-09-07 06:53] LABS: ANION GAP 10 (5-19); BLOOD UREA NITROGEN 24 mg/dL (7-20); CALCIUM 8.6 mg/dL (8.4-10.2); CARBON DIOXIDE 28 mmol/L (22-30); CHLORIDE 93 mmol/L (98-107); GLUCOSE 165 mg/dL (75-110)
[2020-09-07 07:24] LABS: POTASSIUM 2.9 mmol/L (3.6-5.0)
[2020-09-07] MEDS ORDERED: POTASSIUM CHLORIDE 10 MEQ TABLET.ER PO ONE (08:45)
--- NOTE | 2020-09-07 09:16 | RADIOLOGY REPORT (SQ) ---
EXAM DESCRIPTION: CHEST SINGLE VIEW IMAGES COMPLETED DATE/TIME: 09/07/2020 8:33 am REASON FOR STUDY: fever COMPARISON: AP view of the chest from 09/02/2020. EXAM PARAMETERS: NUMBER OF VIEWS: One view. TECHNIQUE: An AP view of the chest was obtained. RADIATION DOSE: NA LIMITATIONS: None. FINDINGS: LUNGS AND PLEURA: Left basilar atelectasis. There is no consolidation, pleural effusion o r pneumothorax. MEDIASTINUM AND HILAR STRUCTURES: No mediastinal or hilar contour abnormality. HEART AND VASCULAR STRUCTURES: The cardiac silhouette and pulmonary vasculature are within normal mccarty its. BONES: No acute findings. HARDWARE: Sternotomy wires and arthroplasty hardware in the left shoulder. OTHER: No other finding. IMPRESSION: Left basilar atelectasis without a superimposed acute cardiopulmonary process. TECHNICAL DOCUMENTATION: JOB ID: [id number] 2010 [employer]- All Rights Reserved Reading location - IP/workstation name: [email or web address]
[2020-09-07] MEDS: HYDRALAZINE HCL 50 MG TABLET PO SCH ×2 (09:50→23:20)
[2020-09-07] MEDS: INSULIN REG, HUMAN 100 UNIT/ML 3 ML VIAL (PYX) SUBCUT SCH ×4 (09:50→23:20)
[2020-09-07] MEDS: LISINOPRIL 10 MG TABLET PO SCH (09:50)
[2020-09-07] MEDS: DOCUSATE SODIUM 100 MG CAPSULE PO SCH (09:51)
[2020-09-07] MEDS: POTASSI CL 20 MEQ/50 ML RIDER 20 MEQ/50 ML RTUPB IV SCH ×2 (09:51→13:40)
[2020-09-07] MEDS: CARVEDILOL 6.25 MG TABLET PO SCH ×2 (09:51→23:22)
[2020-09-07] MEDS: FAMOTIDINE 20 MG TABLET PO SCH ×2 (09:51→23:19)
[2020-09-07] MEDS: LORATADINE 10 MG TABLET PO SCH (09:51)
[2020-09-07] MEDS: ALLOPURINOL 100 MG TABLET PO SCH ×2 (09:51→17:11)
[2020-09-07] MEDS: CYANOCOBALAMIN (VITAMIN B-12) 1,000 MCG TABLET PO SCH (09:51)
[2020-09-07] MEDS: APIXABAN 5 MG TABLET PO SCH ×2 (09:51→23:20)
[2020-09-07] MEDS: CHLORTHALIDONE 25 MG TABLET PO SCH (09:52)
[2020-09-07] MEDS: OXYCODONE-ACETAMINOPHEN 5-325 MG TABLET PO PRN (09:56)
[2020-09-07] MEDS ORDERED: CEFAZOLIN SODIUM 2 GM in DEXTROSE 5%-WATER 100 ML IV ONE (10:00)
--- NOTE | 2020-09-07 10:39 | PDOC PROGRESS REPORT ---
Subjective Date:: 09/07/20 Subjective:: Patient is complaining of moderate left hip pain postop day #1 status post hemia rthroplasty. He had a fever overnight and the hospitalist is looking for sources. Reason For Visit: LEFT HIP FRACTURE, HYPERTENSIVE EMERGENCY,MULTIPLE Postop day #1 status post left hip hemiarthroplasty for displaced femoral neck fracture Physical Exam Vital Signs: Temp Pulse Resp BP Pulse Ox 97.6 F 71 17 115/50 L 98 09/07/20 08:06 09/07/20 08:06 09/07/20 08:06 09/07/20 08:06 09/07/20 08:06 Intake & Output 09/06/20 09/07/20 09/08/20 06:59 06:59 06:59 Intake Total 236 2040 Output Total 1075 375 Balance -839 1665 Weight 80.9 kg 83.6 kg General appearance: PRESENT: no acute distress, well-developed, well-nourished Head exam: PRESENT: atraumatic, normocephalic Neck exam: PRESENT: full ROM Respiratory exam: PRESENT: unlabored Cardiovascular exam: PRESENT: RRR. ABSENT: diastolic murmur, rubs, systolic murmur Musculoskeletal exam: PRESENT: other - The left hip surgical wound is clean dry and intact. There is no evidence of infection. The patient is able to dorsiflex and plantarflex his left foot normally. Sensation is intact to touch. Results Laboratory Results: 09/07/20 05:46 09/07/20 05:46 09/07/20 09/07/20 05:46 05:46 WBC 13.8 H RBC 3.73 L Hgb 10.5 L Hct 31.1 L MCV 83 MCH 28.2 MCHC 33.8 RDW 14.0 Plt Count 216 Sodium 131.0 L Potassium 2.9 L* Chloride 93 L Carbon Dioxide 28 Anion Gap 10 BUN 24 H Creatinine 0.90 Est GFR ( Amer) > 60 Glucose 165 H Calcium 8.6 Impressions: Cervical Spine CT 09/02/20 10:33 IMPRESSION: CHRONIC DEGENERATIVE CHANGES. NO ACUTE FINDINGS. Head CT 09/02/20 10:33 IMPRESSION: MILD CHRONIC CHANGES OF ATROPHY AND MICROVASCULAR ISCHEMIA. NO ACUTE PROCESS. EVIDENCE OF ACUTE STROKE: NO. Pelvis X-Ray 09/02/20 10:33 IMPRESSION: Transcervical left femur fracture with mild impaction. Hip X-Ray 09/06/20 11:41 IMPRESSION: Left hip arthroplasty in good alignment. Chest X-Ray 09/07/20 08:03 IMPRESSION: Left basilar atelectasis without a superimposed acute cardio pulmonary process. Assessment & Plan - Diagnosis (1) Subcapital fracture of left hip Qualifiers: Encounter type: initial encounter Fracture type: closed Qualified Code(s) : S72.012A - Unspecified intracapsular fracture of left femur, initial encounter for closed fracture Is this a current diagnosis for this admission?: Yes (2) CAD (coronary artery disease) Qualifiers: Coronary Disease-Associated Artery/Lesion type: bypass graft Associated angina: without angina Is this a current diagnosis for this admission?: Yes (3) PAF (paroxysmal atrial fibrillation) Is this a current diagnosis for this admission?: Yes - Time Anticipated Discharge Disposition: [facility] Facility Anticipated Discharge Timeframe: within 48 hours Critical Time spent with patient: 15-24 minutes Medications reviewed and adjusted accordingly: Yes - Plan Summary Plan Summary: Postop day #1 status post left hip hemiarthroplasty. Patient is doing well from an orthopedic standpoint. The wound is healing without evidence of infection. The patient is on Eliquis 5 mg twice daily for atrial fibrillation. This will also be used for postoperative DVT prophylaxis. The patient will continue physical therapy: Weightbearing as tolerated with posterior hip precautions. Patient may be discharged to a custodial facility when medically stable. Patient should follow-up in my office 2 weeks following discharge for normal wound evaluation.
[2020-09-07 16:14] LABS: APPEARANCE,URINE CLEAR; BILIRUBIN,URINE NEGATIVE (NEGATIVE); COLOR,URINE YELLOW; GLUCOSE, URINE NEGATIVE (NEGATIVE); KETONES,URINE NEGATIVE (NEGATIVE); PROTEIN,URINE NEGATIVE (NEGATIVE); URINE SPECIFIC GRAVITY 1.026; UROBILINOGEN,URINE NEGATIVE mg/dL (<2.0)
--- NOTE | 2020-09-07 16:41 | RADIOLOGY REPORT (SQ) ---
EXAM DESCRIPTION: SHOULDER LEFT 2 OR MORE VIEWS IMAGES COMPLETED DATE/TIME: 09/07/2020 4:05 pm REASON FOR STUDY: post op COMPARISON: None. NUMBER OF VIEWS: Three views. TECHNIQUE: Internal rotation, external rotation, and Y view images acquired of the left shoulder. LIMITATIONS: None. FINDINGS: MINERALIZATION: Decreased. BONES: The total shoulder arthroplasty hardware is in proper alignment. There is no periprosthetic fracture. JOINTS: Osteoarthrosis of the acromioclavicular joint. VISUALIZED LUNGS AND RIBS: No pneumothorax or rib fracture. SOFT TISSUES: No radiopaque foreign body. OTHER: No other finding. IMPRESSION: Intact total shoulder arthroplasty hardware without evidence of a periprosthetic fractur e. TECHNICAL DOCUMENTATION: JOB ID: [id number] 2010 [employer]- All Rights Reserved Reading location - IP/workstation name: [email or web address]
--- NOTE | 2020-09-07 18:19 | PDOC PROGRESS REPORT ---
Subjective Date:: 09/07/20 Subjective:: The patient is an 85-year-old male with a past medical history significant for CAD, remote [place] and CABG, hyperlipidemia, hypertension, sleep apnea, DM 2, GERD, arthritis, PTSD, and anemia who was admitted 09/02/2020 with a closed left hip fracture. He is now postop left hip hemiarthroplasty. Patient was seen on morning rounds. He is found resting in bed, comfortably, on supplemental oxygen by nasal cannula 2 L/min. He is not home O2 dependent. He reports that he is feeling well today other than persistent left hip pain. He denies chest pain, palpitations, dyspnea, cough, abdominal pain, nausea, vomiting, diarrhea, and constipation. TMax 102.7 last 24 hrs. He has no questions or concerns at this time. No concerns per nursing. Reason For Visit: LEFT HIP FRACTURE, HYPERTENSIVE EMERGENCY,MULTIPLE Physical Exam Vital Signs: Temp Pulse Resp BP Pulse Ox 97.4 F 73 17 107/51 L 100 09/07/20 14:34 09/07/20 14:34 09/07/20 10:00 09/07/20 14:34 09/07/20 14:34 Intake & Output 09/06/20 09/07/20 09/08/20 06:59 06:59 06:59 Intake Total 236 2040 610 Output Total 1075 375 Balance -839 1665 610 Weight 80.9 kg 83.6 kg General appearance: PRESENT: no acute distress, cooperative, well-developed, well-nourished Head exam: PRESENT: atraumatic, normocephalic Eye exam: PRESENT: conjunctiva pink, EOMI, PERRLA. ABSENT: scleral icterus Mouth exam: PRESENT: moist, tongue midline Respiratory exam: PRESENT: clear to auscultation mony, symmetrical, unlabored, other - supplemental oxygen via NC. ABSENT: rales, rhonchi, wheezes Cardiovascular exam: PRESENT: irregular rhythm, +S1, +S2. ABSENT: diastolic murmur, rubs, systolic murmur Pulses: PRESENT: normal dorsalis pedis pul Vascular exam: PRESENT: normal capillary refill GI/Abdominal exam: PRESENT: normal bowel sounds, soft. ABSENT: distended, guarding, mass, organolmegaly, rebound, tenderness Rectal exam: PRESENT: deferred Extremities exam: PRESENT: tenderness - Left hip, other - surgical site is clean, dry, intact; no erythema or drainage present. ABSENT: calf tenderness, clubbing, full ROM, pedal edema Neurological exam: PRESENT: alert, awake, oriented to person, oriented to place, oriented to time, oriented to situation, CN II-XII grossly intact. ABSENT: motor sensory deficit Psychiatric exam: PRESENT: appropriate affect, normal mood. ABSENT: homicidal ideation, suicidal ideation Skin exam: PRESENT: dry, warm. ABSENT: cyanosis, rash Results Laboratory Results: 09/07/20 05:46 09/07/20 05:46 09/07/20 09/07/20 09/07/20 05:46 05:46 15:45 WBC 13.8 H RBC 3.73 L Hgb 10.5 L Hct 31.1 L MCV 83 MCH 28.2 MCHC 33.8 RDW 14.0 Plt Count 216 Sodium 131.0 L Potassium 2.9 L* Chloride 93 L Carbon Dioxide 28 Anion Gap 10 BUN 24 H Creatinine 0.90 Est GFR ( Amer) > 60 Glucose 165 H Calcium 8.6 Urine Color YELLOW Urine Appearance CLEAR Urine pH 5.0 Ur Specific [place] 1.026 Urine Protein NEGATIVE Urine Glucose (UA) NEGATIVE Urine Ketones NEGATIVE Urine Blood NEGATIVE Urine RBC (Auto) 1 Impressions: Cervical Spine CT 09/02/20 10:33 IMPRESSION: CHRONIC DEGENERATIVE CHANGES. NO ACUTE FINDINGS. Head CT 09/02/20 10:33 IMPRESSION: MILD CHRONIC CHANGES OF ATROPHY AND MICROVASCULAR ISCHEMIA. NO ACUTE PROCESS. EVIDENCE OF ACUTE STROKE: NO. Pelvis X-Ray 09/02/20 10:33 IMPRESSION: Transcervical left femur fracture with mild impaction. Hip X-Ray 09/06/20 11:41 IMPRESSION: Left hip arthroplasty in good alignment. Shoulder X-Ray 09/07/20 00:00 IMPRESSION: Intact total shoulder arthroplasty hardware without evidence of a periprosthetic fracture. Chest X-Ray 09/07/20 08:03 IMPRESSION: Left basilar atelectasis without a superimposed acute cardiopulmonary process. Assessment and Plan - Diagnosis (1) Closed left hip fracture Qualifiers: Encounter type: initial encounter Qualified Code(s): S72.002A - Fracture of unspecified part of neck of left femur, initial encounter for closed fracture Is this a current diagnosis for this admission?: Yes Plan: POD #[address] Vail. Continue home dose Eliquis; cleared by orthopedic surgeon. Weight bearing as tolerated. Analgesics as needed. PT/OT consulted. Discharge planning consulted. Outpatient follow-up with Dr. Vail in 2 weeks. (2) Hypertensive emergency Is this a current diagnosis for this admission?: Yes Plan: Resolved. Blood pressures are now adaptable at 141/57. Continue to provide appropriate pain control. Continue carvedilol 6.25 mg twice daily, Hydralazine 50 mg twice daily, and Lisinopril 40 mg daily. As needed Vasotec and IV hydralazine for blood pressure control. Cardiology was consulted; appreciate Dr. Baker's assistance. Cardiac diet. 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 Patient is placed on a consistent carb diet. Accu-Cheks before meals and at bedtime with Humalog for sliding scale coverage. Hypoglycemia protocol in place. (4) PAF (paroxysmal atrial fibrillation) Is this a current diagnosis for this admission?: Yes Plan: Continues to have brief episodes of PAF. [id number] score is 4 Continue to monitor on telemetry. Resume home dose Eliquis. Carvedilol as recommended by Dr. Baker. (5) Hypomagnesemia Is this a current diagnosis for this admission?: Yes Plan: Replete. (6) Fever Qualifiers: Fever type: unspecified Qualified Code(s): R50.9 - Fever, unspecified Is this a current diagnosis for this admission?: Yes Plan: T-max 102.7 last 24 hours. CXR shows left basilar atelectasis; no acute cardiopulmonary findings. Urinalysis negative. Surgical site appears clean dry and intact without evidence of erythema or drainage. Fever may be related to atelectasis, however, I am concerned that it reached >101 Have asked nursing to encourage hourly incentive spirometer use and to mobilize patient. Continue to monitor closely for evidence of infectious process. No indications for antibiotics at this time. (7) Hypokalemia Is this a current diagnosis for this admission?: Yes Plan: IV and oral replacement today. Follow-up chemistry. - Time Time Spent with patient: 25-34 minutes Medications reviewed and adjusted accordingly: Yes Anticipated Discharge Disposition: [facility] Facility Anticipated Discharge Timeframe: within 24 hours - pending resolution of fever
[2020-09-07] MEDS: ATORVASTATIN CALCIUM 40 MG TABLET PO SCH (23:20)
[2020-09-07] MEDS: LATANOPROST 0.005% OPH SOLN 2.5 ML OU SCH (23:29)
[2020-09-08] MEDS: INSULIN REG, HUMAN 100 UNIT/ML 3 ML VIAL (PYX) SUBCUT SCH ×4 (08:12→23:28)
[2020-09-08] MEDS: ACETAMINOPHEN 325 MG TABLET PO PRN (08:40)
[2020-09-08] MEDS: LISINOPRIL 10 MG TABLET PO SCH (10:51)
[2020-09-08] MEDS: APIXABAN 5 MG TABLET PO SCH ×2 (10:52→23:27)
[2020-09-08] MEDS: CYANOCOBALAMIN (VITAMIN B-12) 1,000 MCG TABLET PO SCH (10:52)
[2020-09-08] MEDS: DOCUSATE SODIUM 100 MG CAPSULE PO SCH (10:52)
[2020-09-08] MEDS: HYDRALAZINE HCL 50 MG TABLET PO SCH ×2 (10:52→23:27)
[2020-09-08] MEDS: CARVEDILOL 6.25 MG TABLET PO SCH ×2 (10:52→23:28)
[2020-09-08] MEDS: ALLOPURINOL 100 MG TABLET PO SCH ×2 (10:52→17:36)
[2020-09-08] MEDS: FAMOTIDINE 20 MG TABLET PO SCH ×2 (10:52→23:28)
[2020-09-08] MEDS: LORATADINE 10 MG TABLET PO SCH (10:52)
[2020-09-08] MEDS: CHLORTHALIDONE 25 MG TABLET PO SCH (10:52)
[2020-09-08 12:30] LABS: HEMATOCRIT 30.3 % (37.9-51.0); HEMOGLOBIN 10.1 g/dL (13.5-17.0); MEAN CORPUSCULAR HEMOGLOBIN 28.1 pg (27.0-33.4); MEAN CORPUSCULAR HGB CONC 33.3 g/dL (32.0-36.0); MEAN CORPUSCULAR VOLUME 84 fl (80-97); PLATELET COUNT 249 10^3/uL (150-450); RED CELL DISTRIBUTION WIDTH 13.8 % (11.5-14.0); WHITE BLOOD COUNT 11.6 10^3/uL (4.0-10.5)
[2020-09-08 12:50] LABS: ANION GAP 9 (5-19); BLOOD UREA NITROGEN 28 mg/dL (7-20); CALCIUM 8.9 mg/dL (8.4-10.2); CARBON DIOXIDE 30 mmol/L (22-30); CHLORIDE 90 mmol/L (98-107); GLUCOSE 206 mg/dL (75-110); POTASSIUM 3.5 mmol/L (3.6-5.0)
--- NOTE | 2020-09-08 17:11 | PDOC PROGRESS REPORT ---
Subjective Date:: 09/08/20 Subjective:: Patient lying in bed comfortably. States his shoulder is doing well. Continues to have difficulty with ambulation after his hip surgery. Reason For Visit: LEFT HIP FRACTURE, HYPERTENSIVE EMERGENCY,MULTIPLE Physical Exam Vital Signs: Temp Pulse Resp BP Pulse Ox 98.5 F 68 18 146/65 H 97 09/08/20 12:00 09/08/20 12:00 09/08/20 12:00 09/08/20 12:00 09/08/20 12:00 Intake & Output 09/07/20 09/08/20 09/09/20 06:59 06:59 06:59 Intake Total 2040 735 Output Total 375 775 Balance 1665 -40 Weight 83.6 kg 83.6 kg 83.6 kg Musculoskeletal exam: PRESENT: other - Left shoulder: Surgical incision well approximated no erythema or drainage. Full elbow, wrist and hand range of motion. Forward flexion 80 degrees abduction 60 degrees external rotation 30 degrees no sensory deficits Results Laboratory Results: 09/08/20 12:02 09/08/20 12:02 09/08/20 09/08/20 12:02 12:02 WBC 11.6 H RBC 3.60 L Hgb 10.1 L Hct 30.3 L MCV 84 MCH 28.1 MCHC 33.3 RDW 13.8 Plt Count 249 Sodium 128.6 L Potassium 3.5 L Chloride 90 L Carbon Dioxide 30 Anion Gap 9 BUN 28 H Creatinine 0.76 Est GFR ( Amer) > 60 Glucose 206 H Calcium 8.9 Impressions: Cervical Spine CT 09/02/20 10:33 IMPRESSION: CHRONIC DEGENERATIVE CHANGES. NO ACUTE FINDINGS. Head CT 09/02/20 10:33 IMPRESSION: MILD CHRONIC CHANGES OF ATROPHY AND MICROVASCULAR ISCHEMIA. NO ACUTE PROCESS. EVIDENCE OF ACUTE STROKE: NO. Pelvis X-Ray 09/02/20 10:33 IMPRESSION: Transcervical left femur fracture with mild impaction. Hip X-Ray 09/06/20 11:41 IMPRESSION: Left hip arthroplasty in good alignment. Shoulder X-Ray 09/07/20 00:00 IMPRESSION: Intact total shoulder arthroplasty hardware without evidence of a periprosthetic fracture. Chest X-Ray 09/07/20 08:03 IMPRESSION: Left basilar atelectasis without a superimposed acute cardiopulmonary process. Status: Image reviewed by me - I have reviewed patient's radiographs consistent with left reverse total shoulder arthroplasty no evidence of loosening or acute fracture Assessment & Plan - Diagnosis (1) Status post reverse total replacement of left shoulder Is this a current diagnosis for this admission?: Yes Plan: We will reinitiate physical therapy for the patient's left shoulder which is doing well. He is now 5 weeks postoperatively may begin active and has active assistive range of motion but would avoid full weightbearing to the left upper extremity. - Time Time Spent with patient: Less than 15 minutes
--- NOTE | 2020-09-08 19:24 | PDOC PROGRESS REPORT ---
Subjective Date:: 09/08/20 Subjective:: The patient is an 85-year-old male with a past medical history significant for CAD, remote [place] and CABG, hyperlipidemia, hypertension, sleep apnea, DM 2, GERD, arthritis, PTSD, and anemia who was admitted 09/02/2020 with a closed left hip fracture. He is now postop left hip hemiarthroplasty. Patient was seen on morning rounds. He is found resting in bed, comfortably, on room air. He is not home O2 dependent. He reports that he is feeling well today other than persistent left hip pain. Asks for pain medication if it is available. Does express some frustration that he did not do as well with PT as he had hoped. Otherwise no complaints. He denies chest pain, palpitations, dyspnea, cough, abdominal pain, nausea, vomiting, diarrhea, and constipation. Afebrile x36 hrs, 102.7/48 hrs. He has no questions or concerns at this time. No concerns per nursing. Reason For Visit: LEFT HIP FRACTURE, HYPERTENSIVE EMERGENCY,MULTIPLE Physical Exam Vital Signs: Temp Pulse Resp BP Pulse Ox 98.5 F 76 18 146/65 H 97 09/08/20 12:00 09/08/20 14:00 09/08/20 12:00 09/08/20 12:00 09/08/20 12:00 Intake & Output 09/07/20 09/08/20 09/09/20 06:59 06:59 06:59 Intake Total 2040 735 Output Total 375 775 Balance 1665 -40 Weight 83.6 kg 83.6 kg 83.6 kg General appearance: PRESENT: no acute distress, cooperative, well-developed, well-nourished Head exam: PRESENT: atraumatic, normocephalic Eye exam: PRESENT: conjunctiva pink, EOMI, PERRLA. ABSENT: scleral icterus Mouth exam: PRESENT: moist, tongue midline Respiratory exam: PRESENT: clear to auscultation mony, symmetrical, unlabored, other - room air. ABSENT: rales, rhonchi, wheezes Cardiovascular exam: PRESENT: RRR, +S1, +S2. ABSENT: diastolic murmur, rubs, systolic murmur Pulses: PRESENT: normal dorsalis pedis pul Vascular exam: PRESENT: normal capillary refill Extremities exam: PRESENT: tenderness - Lt hip, other - surgical site is clean, dry, intact; no erythema or drainage present. ABSENT: calf tenderness, clubbing, full ROM, pedal edema Neurological exam: PRESENT: alert, awake, oriented to person, oriented to place, oriented to time, oriented to situation, CN II-XII grossly intact. ABSENT: motor sensory deficit Psychiatric exam: PRESENT: flat affect, normal mood. ABSENT: homicidal ideation, suicidal ideation Skin exam: PRESENT: dry, warm. ABSENT: cyanosis, rash Results Laboratory Results: 09/08/20 12:02 09/08/20 12:02 09/08/20 09/08/20 12:02 12:02 WBC 11.6 H RBC 3.60 L Hgb 10.1 L Hct 30.3 L MCV 84 MCH 28.1 MCHC 33.3 RDW 13.8 Plt Count 249 Sodium 128.6 L Potassium 3.5 L Chloride 90 L Carbon Dioxide 30 Anion Gap 9 BUN 28 H Creatinine 0.76 Est GFR ( Amer) > 60 Glucose 206 H Calcium 8.9 Impressions: Cervical Spine CT 09/02/20 10:33 IMPRESSION: CHRONIC DEGENERATIVE CHANGES. NO ACUTE FINDINGS. Head CT 09/02/20 10:33 IMPRESSION: MILD CHRONIC CHANGES OF ATROPHY AND MICROVASCULAR ISCHEMIA. NO ACUTE PROCESS. EVIDENCE OF ACUTE STROKE: NO. Pelvis X-Ray 09/02/20 10:33 IMPRESSION: Transcervical left femur fracture with mild impaction. Hip X-Ray 09/06/20 11:41 IMPRESSION: Left hip arthroplasty in good alignment. Shoulder X-Ray 09/07/20 00:00 IMPRESSION: Intact total shoulder arthroplasty hardware without evidence of a periprosthetic fracture. Chest X-Ray 09/07/20 08:03 IMPRESSION: Left basilar atelectasis without a superimposed acute cardiopulmonary process. Assessment and Plan - Diagnosis (1) Closed left hip fracture Qualifiers: Encounter type: initial encounter Qualified Code(s): S72.002A - Fracture of unspecified part of neck of left femur, initial encounter for closed fracture Is this a current diagnosis for this admission?: Yes Plan: POD #[address] Vail. Continue home dose Eliquis; cleared by orthopedic surgeon. Weight bearing as tolerated. Analgesics as needed. PT/OT consulted. Discharge planning consulted. Outpatient follow-up with Dr. Vail in 2 weeks. (2) Hypertensive emergency Is this a current diagnosis for this admission?: Yes Plan: Resolved. Continue to provide appropriate pain control. Continue carvedilol 6.25 mg twice daily, Hydralazine 50 mg twice daily, and Lisinopril 40 mg daily. As needed Vasotec and IV hydralazine for blood pressure control. Cardiology was consulted; appreciate Dr. Baker's assistance. Cardiac diet. 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 Patient is placed on a consistent carb diet. Accu-Cheks before meals and at bedtime with Humalog for sliding scale coverage. Hypoglycemia protocol in place. (4) PAF (paroxysmal atrial fibrillation) Is this a current diagnosis for this admission?: Yes Plan: Continues to have brief episodes of PAF. [id number] score is 4 Continue to monitor on telemetry. Resume home dose Eliquis. Carvedilol as recommended by Dr. Baker. (5) Hypomagnesemia Is this a current diagnosis for this admission?: Yes Plan: Replete. (6) Fever Qualifiers: Fever type: unspecified Qualified Code(s): R50.9 - Fever, unspecified Is this a current diagnosis for this admission?: Yes Plan: Afebrile x36 hrs, TMax 102.7/48 hours. CXR shows left basilar atelectasis; no acute cardiopulmonary findings. Urinalysis negative. Surgical site appears clean dry and intact without evidence of erythema or drainage. Have asked nursing to encourage hourly incentive spirometer use and to mobilize patient. Continue to monitor closely for evidence of infectious process. No indications for antibiotics at this time. (7) Hypokalemia Is this a current diagnosis for this admission?: Yes Plan: Oral replacement today. Follow-up chemistry. (8) Hyponatremia Is this a current diagnosis for this admission?: Yes Plan: Hold chlorthalidone. Free water fluid restriction. Follow-up chemistry. - Time Time Spent with patient: 25-34 minutes Medications reviewed and adjusted accordingly: Yes [facility]ticipated [facility] Anticipated Discharge Timeframe: when bed available
[2020-09-08] MEDS: ATORVASTATIN CALCIUM 40 MG TABLET PO SCH (23:28)
[2020-09-08] MEDS: TEMAZEPAM 7.5 MG CAPSULE PO PRN (23:44)
[2020-09-08] MEDS: LATANOPROST 0.005% OPH SOLN 2.5 ML OU SCH (23:46)
[2020-09-09 08:10] LABS: ANION GAP 6 (5-19); BLOOD UREA NITROGEN 27 mg/dL (7-20); CALCIUM 8.5 mg/dL (8.4-10.2); CARBON DIOXIDE 32 mmol/L (22-30); CHLORIDE 90 mmol/L (98-107); GLUCOSE 186 mg/dL (75-110)
[2020-09-09 08:12] LABS: POTASSIUM 3.1 mmol/L (3.6-5.0)
[2020-09-09] MEDS: INSULIN REG, HUMAN 100 UNIT/ML 3 ML VIAL (PYX) SUBCUT SCH ×4 (09:20→21:57)
[2020-09-09] MEDS: CYANOCOBALAMIN (VITAMIN B-12) 1,000 MCG TABLET PO SCH (09:21)
[2020-09-09] MEDS: FAMOTIDINE 20 MG TABLET PO SCH ×2 (09:21→21:56)
[2020-09-09] MEDS: LORATADINE 10 MG TABLET PO SCH (09:21)
[2020-09-09] MEDS: DOCUSATE SODIUM 100 MG CAPSULE PO SCH (09:21)
[2020-09-09] MEDS: APIXABAN 5 MG TABLET PO SCH ×2 (09:21→21:56)
[2020-09-09] MEDS: ALLOPURINOL 100 MG TABLET PO SCH ×2 (09:21→17:23)
[2020-09-09] MEDS: CARVEDILOL 6.25 MG TABLET PO SCH ×2 (09:21→21:56)
[2020-09-09] MEDS: LISINOPRIL 10 MG TABLET PO SCH (09:21)
[2020-09-09] MEDS: HYDRALAZINE HCL 50 MG TABLET PO SCH ×2 (09:21→21:55)
[2020-09-09] MEDS ORDERED: NORMAL SALINE 1000 ML 1,000 ML IV ONE (09:30)
[2020-09-09] MEDS ORDERED: POTASSIUM CHLORIDE 10 MEQ TABLET.ER PO ONE (09:30)
[2020-09-09] MEDS: ACETAMINOPHEN 325 MG TABLET PO PRN (12:31)
[2020-09-09 14:56] LABS: ANION GAP 8 (5-19); BLOOD UREA NITROGEN 28 mg/dL (7-20); CALCIUM 8.4 mg/dL (8.4-10.2); CARBON DIOXIDE 30 mmol/L (22-30); CHLORIDE 92 mmol/L (98-107); GLUCOSE 216 mg/dL (75-110); POTASSIUM 3.7 mmol/L (3.6-5.0)
[2020-09-09] MEDS ORDERED: NORMAL SALINE 1000 ML 1,000 ML IV PRN (16:22)
--- NOTE | 2020-09-09 19:29 | PDOC PROGRESS REPORT ---
Subjective Date:: 09/09/20 Subjective:: The patient is an 85-year-old male with a past medical history significant for CAD, remote [place] and CABG, hyperlipidemia, hypertension, sleep apnea, DM 2, GERD, arthritis, PTSD, and anemia who was admitted 09/02/2020 with a closed left hip fracture. He is now postop left hip hemiarthroplasty. Patient was seen on morning rounds. He is found resting in bed, comfortably, on room air. He reports that he is feeling well today. He was quite drowsy and fell asleep. I re-woke him, he apologized and again fell back to sleep. Per nursing, the patient's spouse stated that he seemed somewhat confused on waking this morning and then improved, however, is drowsier than is his normal. Otherwise no other complaints or concerns per spouse or nursing. Afebrile >48hrs, 102.7/48 hrs. Reason For Visit: LEFT HIP FRACTURE, HYPERTENSIVE EMERGENCY,MULTIPLE Physical Exam Vital Signs: Temp Pulse Resp BP Pulse Ox 98.4 F 71 16 132/62 H 94 09/09/20 10:00 09/09/20 14:00 09/09/20 00:40 09/09/20 00:40 09/09/20 00:40 Intake & Output 09/08/20 09/09/20 09/10/20 06:59 06:59 06:59 Intake Total 087 628 6612 Output Total 775 510 Balance -40 -235 1236 Weight 83.6 kg 81.7 kg General appearance: PRESENT: no acute distress, cooperative, well-developed, well-nourished Head exam: PRESENT: atraumatic, normocephalic Eye exam: PRESENT: conjunctiva pink, EOMI, PERRLA. ABSENT: scleral icterus Mouth exam: PRESENT: moist, tongue midline Respiratory exam: PRESENT: clear to auscultation mony, symmetrical, unlabored, other - room air. ABSENT: rales, rhonchi, wheezes Cardiovascular exam: PRESENT: RRR. ABSENT: diastolic murmur, rubs, systolic murmur Vascular exam: PRESENT: normal capillary refill GI/Abdominal exam: PRESENT: normal bowel sounds, soft. ABSENT: distended, guarding, mass, organolmegaly, rebound, tenderness Rectal exam: PRESENT: deferred Extremities exam: PRESENT: tenderness - Lt hip. ABSENT: calf tenderness, clubbing, pedal edema Neurological exam: PRESENT: alert, awake, oriented to person, oriented to place, oriented to time, oriented to situation, CN II-XII grossly intact. ABSENT: motor sensory deficit Psychiatric exam: PRESENT: appropriate affect, normal mood. ABSENT: homicidal ideation, suicidal ideation Skin exam: PRESENT: dry, warm. ABSENT: cyanosis, rash Results Laboratory Results: 09/08/20 12:02 09/09/20 14:24 09/09/20 09/09/20 06:36 14:24 Sodium 128.0 L 129.6 L Potassium 3.1 L 3.7 Chloride 90 L 92 L Carbon Dioxide 32 H 30 Anion Gap 6 8 BUN 27 H 28 H Creatinine 0.72 0.64 Est GFR ( Amer) > 60 > 60 Glucose 186 H 216 H Calcium 8.5 8.4 Impressions: Cervical Spine CT 09/02/20 10:33 IMPRESSION: CHRONIC DEGENERATIVE CHANGES. NO ACUTE FINDINGS. Head CT 09/02/20 10:33 IMPRESSION: MILD CHRONIC CHANGES OF ATROPHY AND MICROVASCULAR ISCHEMIA. NO ACUTE PROCESS. EVIDENCE OF ACUTE STROKE: NO. Pelvis X-Ray 09/02/20 10:33 IMPRESSION: Transcervical left femur fracture with mild impaction. Hip X-Ray 09/06/20 11:41 IMPRESSION: Left hip arthroplasty in good alignment. Shoulder X-Ray 09/07/20 00:00 IMPRESSION: Intact total shoulder arthroplasty hardware without evidence of a periprosthetic fracture. Chest X-Ray 09/07/20 08:03 IMPRESSION: Left basilar atelectasis without a superimposed acute cardiopulmonary process. Assessment and Plan - Diagnosis (1) Closed left hip fracture Qualifiers: Encounter type: initial encounter Qualified Code(s): S72.002A - Fracture of unspecified part of neck of left femur, initial encounter for closed fracture Is this a current diagnosis for this admission?: Yes Plan: s/p left hemiarthroplasty by Dr. Vail. Continue home dose Eliquis; cleared by orthopedic surgeon. Weight bearing as tolerated. Analgesics as needed. PT/OT consulted. Discharge planning consulted. Outpatient follow-up with Dr. Vail in 2 weeks. (2) Hypertensive emergency Is this a current diagnosis for this admission?: Yes Plan: Resolved. Continue to provide appropriate pain control. Continue carvedilol 6.25 mg twice daily, Hydralazine 50 mg twice daily, and Lisinopril 40 mg daily. As needed Vasotec and IV hydralazine for blood pressure control. Cardiology was consulted; appreciate Dr. Baker's assistance. Cardiac diet. (3) DM2 (diabetes mellitus, type 2) Qualifiers: Diabetes mellitus long-term insulin use: with long-term use Is this a current diagnosis for this admission?: Yes Plan: Holding oral medications while admitted. Patient is placed on a consistent carb diet. Accu-Cheks before meals and at bedtime with Humalog for sliding scale coverage. Hypoglycemia protocol in place. (4) PAF (paroxysmal atrial fibrillation) Is this a current diagnosis for this admission?: Yes Plan: Continues to have brief episodes of PAF. [id number] score is 4 Continue to monitor on telemetry. Resume home dose Eliquis. Carvedilol as recommended by Dr. Baker. (5) Hypomagnesemia Is this a current diagnosis for this admission?: Yes Plan: Replete. (6) Fever Qualifiers: Fever type: unspecified Qualified Code(s): R50.9 - Fever, unspecified Is this a current diagnosis for this admission?: Yes Plan: Afebrile >48 hours. CXR shows left basilar atelectasis; no acute cardiopulmonary findings. Urinalysis negative. Surgical site appears clean dry and intact without evidence of erythema or dr flores. Have asked nursing to encourage hourly incentive spirometer use and to mobilize patient. Continue to monitor closely for evidence of infectious process. No indications for antibiotics at this time. (7) Hypokalemia Is this a current diagnosis for this admission?: Yes Plan: Replete following oral replacement. Follow-up chemistry. (8) Hyponatremia Is this a current diagnosis for this admission?: Yes Plan: Hold chlorthalidone. Free water fluid restriction. NS bolus x1 L w/ improvement of Na from 128->129 Will continue gentl IVF Follow-up chemistry. (9) JULIANE (obstructive sleep apnea) Is this a current diagnosis for this admission?: Yes Plan: CPAP nightly and when asleep. Possibly the cause of his drowsiness and nighttime hypertension. - Time Time Spent with patient: 25-34 minutes Medications reviewed and adjusted accordingly: Yes Anticipated Discharge Disposition: [facility] Anticipated Discharge Timeframe: within 48 hours
[2020-09-09] MEDS: ATORVASTATIN CALCIUM 40 MG TABLET PO SCH (21:56)
[2020-09-09] MEDS: LATANOPROST 0.005% OPH SOLN 2.5 ML OU SCH (21:56)
[2020-09-10] MEDS: ACETAMINOPHEN 325 MG TABLET PO PRN (05:17)
[2020-09-10 06:27] LABS: HEMATOCRIT 28.1 % (37.9-51.0); HEMOGLOBIN 9.5 g/dL (13.5-17.0); MEAN CORPUSCULAR HEMOGLOBIN 28.2 pg (27.0-33.4); MEAN CORPUSCULAR HGB CONC 33.9 g/dL (32.0-36.0); MEAN CORPUSCULAR VOLUME 83 fl (80-97); PLATELET COUNT 291 10^3/uL (150-450); RED BLOOD COUNT 3.38 10^6/uL (4.35-5.55); RED CELL DISTRIBUTION WIDTH 14.2 % (11.5-14.0); WHITE BLOOD COUNT 8.4 10^3/uL (4.0-10.5)
[2020-09-10 06:46] LABS: ANION GAP 7 (5-19); BLOOD UREA NITROGEN 22 mg/dL (7-20); CALCIUM 8.3 mg/dL (8.4-10.2); CARBON DIOXIDE 30 mmol/L (22-30); CHLORIDE 94 mmol/L (98-107); GLUCOSE 153 mg/dL (75-110); POTASSIUM 3.7 mmol/L (3.6-5.0)
[2020-09-10] MEDS: INSULIN REG, HUMAN 100 UNIT/ML 3 ML VIAL (PYX) SUBCUT SCH ×2 (08:03→12:18)
--- NOTE | 2020-09-10 09:16 | PDOC PROGRESS REPORT ---
Subjective Date:: 09/10/20 Subjective:: The patient reports decreased pain in his left hip. He states that he has not y et accomplished very much with therapy. He reports that he is not yet been ambulating. Reason For Visit: LEFT HIP FRACTURE, HYPERTENSIVE EMERGENCY,MULTIPLE Operative day #4 status post left hip hemiarthroplasty for displaced subcapital femoral neck fracture. Physical Exam Vital Signs: Temp Pulse Resp BP Pulse Ox 98.5 F 70 17 137/62 H 95 09/09/20 23:59 09/10/20 02:00 09/09/20 23:59 09/09/20 23:59 09/09/20 23:59 Intake & Output 09/09/20 09/10/20 09/11/20 06:59 06:59 06:59 Intake Total 275 1926 Output Total 510 750 Balance -235 1176 Weight 81.7 kg General appearance: PRESENT: no acute distress, well-developed, well-nourished Head exam: PRESENT: atraumatic, normocephalic Respiratory exam: PRESENT: decreased breath sounds Cardiovascular exam: PRESENT: RRR Musculoskeletal exam: PRESENT: other - The surgical wound is clean, dry, and intact. There is no drainage, erythema or signs of infection. The patient is able to dorsiflex and plantarflex his ankle. Sensation is intact to touch. Results Laboratory Results: 09/10/20 05:47 09/10/20 05:47 09/09/20 09/10/20 09/10/20 14:24 05:47 05:47 WBC 8.4 RBC 3.38 L Hgb 9.5 L Hct 28.1 L MCV 83 MCH 28.2 MCHC 33.9 RDW 14.2 H Plt Count 291 Sodium 129.6 L 131.0 L Potassium 3.7 3.7 Chloride 92 L 94 L Carbon Dioxide 30 30 Anion Gap 8 7 BUN 28 H 22 H Creatinine 0.64 0.61 Est GFR ( Amer) > 60 > 60 Glucose 216 H 153 H Calcium 8.4 8.3 L Impressions: Cervical Spine CT 09/02/20 10:33 IMPRESSION: CHRONIC DEGENERATIVE CHANGES. NO ACUTE FINDINGS. Head CT 09/02/20 10:33 IMPRESSION: MILD CHRONIC CHANGES OF ATROPHY AND MICROVASCULAR ISCHEMIA. NO ACUTE PROCESS. EVIDENCE OF ACUTE STROKE: NO. Pelvis X-Ray 09/02/20 10:33 IMPRESSION: Transcervical left femur fracture with mild impaction. Hip X-Ray 09/06/20 11:41 IMPRESSION: Left hip arthroplasty in good alignment. Shoulder X-Ray 09/07/20 00:00 IMPRESSION: Intact total shoulder arthroplasty hardware without evidence of a periprosthetic fracture. Chest X-Ray 09/07/20 08:03 IMPRESSION: Left basilar atelectasis without a superimposed acute cardiopulmonary process. Assessment & Plan - Diagnosis (1) Subcapital fracture of left hip Qualifiers: Encounter type: initial encounter Fracture type: closed Qualified Code(s): S72.012A - Unspecified intracapsular fracture of left femur, initial encounter for closed fracture Is this a current diagnosis for this admission?: Yes (2) CAD (coronary artery disease) Qualifiers: Coronary Disease-Associated Artery/Lesion type: bypass graft Associated angina: without angina Is this a current diagnosis for this admission?: Yes (3) PAF (paroxysmal atrial fibrillation) Is this a current diagnosis for this admission?: Yes - Time Anticipated Discharge Disposition: Intermediate Facility Anticipated Discharge Timeframe: when bed available Critical Time spent with patient: 15-24 minutes Medications reviewed and adjusted accordingly: Yes - Plan Summary Plan Summary: Postop day #4 status post left hip hemiarthroplasty. Patient is doing well from an orthopedic standpoint. The wound is healing without evidence of infection. The patient is on Eliquis 5 mg twice daily for atrial fibrillation. This will also be used for postoperative DVT prophylaxis. The patient will continue physical therapy: Weightbearing as tolerated with posterior hip precautions. Patient may be discharged to a nursing home facility when medically stable. Patient should follow-up in my office 2 weeks following discharge for normal wound evaluation.
[2020-09-10] MEDS: FAMOTIDINE 20 MG TABLET PO SCH (09:55)
[2020-09-10] MEDS: ALLOPURINOL 100 MG TABLET PO SCH (09:55)
[2020-09-10] MEDS: APIXABAN 5 MG TABLET PO SCH (09:56)
[2020-09-10] MEDS: DOCUSATE SODIUM 100 MG CAPSULE PO SCH (09:56)
[2020-09-10] MEDS: LORATADINE 10 MG TABLET PO SCH (09:56)
[2020-09-10] MEDS: CYANOCOBALAMIN (VITAMIN B-12) 1,000 MCG TABLET PO SCH (09:56)
[2020-09-10] MEDS: CARVEDILOL 6.25 MG TABLET PO SCH (09:57)
[2020-09-10] MEDS: HYDRALAZINE HCL 50 MG TABLET PO SCH (09:57)
[2020-09-10] MEDS: LISINOPRIL 10 MG TABLET PO SCH (09:58)
[2020-09-10] MEDS ORDERED: POLYETHYLENE GLYCOL 3350 POWDER 17 GM/1 PACKET PO SCH (10:00)
[2020-09-10 10:56] VITALS: BP 172/69
--- NOTE | 2020-09-10 11:28 | PDOC TRANSFER SUMMARY ---
Impression - Admit/DC Date/PCP Admission Date/Primary Care Provider: 09/02/20 11:23 MAGDA ARAUJO MD Discharge Date: 09/10/20 - Discharge Diagnosis (1) Closed left hip fracture Is this a current diagnosis for this admission?: Yes (2) Hypertensive emergency Is this a current diagnosis for this admission?: Yes (3) DM2 (diabetes mellitus, type 2) Is this a current diagnosis for this admission?: Yes (4) PAF (paroxysmal atrial fibrillation) Is this a current diagnosis for this admission?: Yes (5) Hypomagnesemia Is this a current diagnosis for this admission?: Yes (6) Fever Is this a current diagnosis for this admission?: Yes (7) Hypokalemia Is this a current diagnosis for this admission?: Yes (8) Hyponatremia Is this a current diagnosis for this admission?: Yes (9) JULIANE (obstructive sleep apnea) Is this a current diagnosis for this admission?: Yes - Additional Information Resuscitation Status: Full Code Discharge Diet: Diabetic Discharge Activity: Activity As Tolerated, Balance Activity w/Rest, Slowly Increase Activity, Supervised Activity Referrals: [facility] [Outside] RAOUL VAIL MD [ACTIVE STAFF] - (Follow up in 2 weeks.) Prescriptions: Hydralazine HCl [Apresoline 50 mg Tablet] 50 mg PO Q12 #60 tablet Carvedilol [Coreg 6.25 mg Tablet] 6.25 mg PO Q12 #60 tablet Oxycodone HCl/Acetaminophen [Percocet 5-325 mg Tablet] 2 tab PO Q6HP PRN #12 tablet PRN Reason: Lisinopril [Zestril] 40 mg PO DAILY #30 tablet Home Medications: Allopurinol [Zyloprim 100 mg Tablet] 100 mg PO BID 03/07/17 Atorvastatin Calcium 40 mg PO QHS 03/07/17 Latanoprost [Xalatan 0.005% Oph Soln 2.5 ml] 1 drop OU QHS 03/07/17 Sitagliptin Phos/Metformin HCl [Janumet 50-1,000 mg Tablet] 1 tab PO BID 03/07/17 Brimonidine Tartrate [Alphagan P] 1 drop OU Q12 10/15/17 Omeprazole Magnesium [Prilosec Otc] 20 mg PO BID 06/29/18 Cyanocobalamin (Vitamin B-12) [Vitamin B-12] 1,000 mcg PO DAILY 07/14/20 Apixaban [Eliquis 2.5 mg Tablet] 2.5 mg PO BID #60 tablet 07/15/20 Loratadine [Claritin 10 mg Tablet] 10 mg PO DAILY 09/02/20 Acetaminophen [Tylenol 325 mg Tablet] 650 mg PO Q4HP PRN tablet 09/10/20 Carvedilol [Coreg 6.25 mg Tablet] 6.25 mg PO Q12 #60 tablet 09/10/20 Docusate Sodium [Colace 100 mg Capsule] 100 mg PO DAILY capsule 09/10/20 Hydralazine HCl [Apresoline 50 mg Tablet] 50 mg PO Q12 #60 tablet 09/10/20 Lisinopril [Zestril] 40 mg PO DAILY #30 tablet 09/10/20 Oxycodone HCl/Acetaminophen [Percocet 5-325 mg Tablet] 2 tab PO Q6HP PRN #12 tablet 09/10/20 Polyethylene Glycol 3350 [Miralax Powder 17 gm/Packet] 17 gm PO DAILY powd.pack 09/10/20 History of Present Illiness History of Present Illness: Per H&P by Dr. Amaya: DAMARIS RAMAN JR is a 85 year old male Patient presents emergency room after falling today. He was actually at rehab for physical therapy on his left shoulder which was recently repaired. He fell on his face as well as his hip and presents to the emergency room with left hip pain. Patient was found to have a left hip fracture after falling at rehab today. Patient denies any associated dizziness or chest pain or shortness of breath. Patient has apparently falling out twice in the last week or so. His says that he has been falling a little bit more frequently of late. It appears that he was in the hospital about 5 weeks ago precisely in June for his left reverse total shoulder arthroplasty. It appears at that time patient was noted to have atrial fibrillation intraoperatively. His who is really his main caregiver as patient does have some mild dementia was able to help him answer some questions. It appears patient was started on Eliquis just during this last hospital physician due to the atrial fibrillation. This apparently was not captured on serial EKGs. 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 Was also noted to be grossly hypertensive on arrival to the emergency room with his blood pressure at about 215 systolic. The states that he is compliant with his medications. Hospital Course Hospital Course: (1) Closed left hip fracture s/p left hemiarthroplasty by Dr. Vail. Continue home dose Eliquis. Weight bearing as tolerated. PT/OT consulted. Analgesics as needed. Outpatient follow-up with Dr. Vail in 2 weeks. (2) Hypertensive emergency Resolved. Continue to provide appropriate pain control. Continue carvedilol 6.25 mg twice daily, Hydralazine 50 mg twice daily, and Lisinopril 40 mg daily. Cardiology was consulted; appreciate Dr. Baker's assistance. (3) DM2 (diabetes mellitus, type 2) Resume home medication regimen. Consistent carb diet. (4) PAF (paroxysmal atrial fibrillation) Continues to have brief episodes of PAF. [id number] score is 4 Resume home dose Eliquis. Continue Carvedilol Cardiology was consulted; appreciate Dr. Baker. (5) Hypomagnesemia Replete. (6) Fever Afebrile >72 hours. CXR shows left basilar atelectasis; no acute cardiopulmonary findings. Urinalysis negative. COVID negative. Surgical site appears clean dry and intact without evidence of erythema or drainage. Continue to encourage hourly incentive spirometer use while awake. No indications for antibiotics. (7) Hypokalemia Replete. (8) Hyponatremia Secondary to chlorthalidone; have discontinued. Improvemed following IVF; Na 128->129-> 131 Liberalize dietary sodium. Recommend follow-up chemistry in 3-5 days. (9) JULIANE (obstructive sleep apnea) CPAP nightly and when asleep. Improved daytime alertness following use. Physical Exam Vital Signs: Temp Pulse Resp BP Pulse Ox 97.5 F 69 18 172/69 H 95 09/10/20 07:52 09/10/20 07:52 09/10/20 07:52 09/10/20 07:52 09/10/20 07:52 Intake & Output 09/09/20 09/10/20 09/11/20 06:59 06:59 06:59 Intake Total 275 1926 Output Total 510 750 Balance -235 1176 Weight 81.7 kg General appearance: PRESENT: no acute distress, cooperative, well-developed, well-nourished Head exam: PRESENT: atraumatic, normocephalic Eye exam: PRESENT: conjunctiva pink, EOMI, PERRLA. ABSENT: scleral icterus Mouth exam: PRESENT: moist, tongue midline Neck exam: ABSENT: carotid bruit, JVD, lymphadenopathy, thyromegaly Respiratory exam: PRESENT: clear to auscultation mony, symmetrical, unlabored, other - room air. ABSENT: rales, rhonchi, wheezes Cardiovascular exam: PRESENT: irregular rhythm, +S1, +S2. ABSENT: diastolic murmur, rubs, systolic murmur Pulses: PRESENT: normal dorsalis pedis pul Vascular exam: PRESENT: normal capillary refill GI/Abdominal exam: PRESENT: normal bowel sounds, soft. ABSENT: distended, guarding, mass, organolmegaly, rebound, tenderness Rectal exam: PRESENT: deferred Extremities exam: PRESENT: full ROM, tenderness - Left Hip. ABSENT: calf tenderness, clubbing, pedal edema Neurological exam: PRESENT: alert, awake, oriented to person, oriented to place, oriented to time, oriented to situation, CN II-XII grossly intact. ABSENT: motor sensory deficit Psychiatric exam: PRESENT: appropriate affect, normal mood. ABSENT: homicidal ideation, suicidal ideation Skin exam: PRESENT: dry, warm. ABSENT: cyanosis, rash Results Laboratory Results: WBC 8.4 10^3/uL (4.0-10.5) 09/10/20 05:47 RBC 3.38 10^6/uL (4.35-5.55) L 09/10/20 05:47 Hgb 9.5 g/dL (13.5-17.0) L 09/10/20 05:47 Hct 28.1 % (37.9-51.0) L 09/10/20 05:47 MCV 83 fl (80-97) 09/10/20 05:47 MCH 28.2 pg (27.0-33.4) 09/10/20 05:47 MCHC 33.9 g/dL (32.0-36.0) 09/10/20 05:47 RDW 14.2 % (11.5-14.0) H 09/10/20 05:47 Plt Count 291 10^3/uL (150-450) 09/10/20 05:47 Lymph % (Auto) 15.3 % (13-45) 09/06/20 06:21 [place] % (Auto) 15.0 % (3-13) H 09/06/20 06:21 Eos % (Auto) 2.3 % (0-6) 09/06/20 06:21 Baso % (Auto) 0.4 % (0-2) 09/06/20 06:21 Absolute Neuts (auto) 6.4 10^3/uL (1.7-8.2) 09/06/20 06:21 Absolute Lymphs (auto) 1.4 10^3/uL (0.5-4.7) 09/06/20 06:21 Absolute Monos (auto) 1.4 10^3/uL (0.1-1.4) 09/06/20 06:21 Absolute Eos (auto) 0.2 10^3/uL (0.0-0.6) 09/06/20 06:21 Absolute Basos (auto) 0.0 10^3/uL (0.0-0.2) 09/06/20 06:21 Seg Neutrophils % 67.0 % (42-78) 09/06/20 06:21 PT 13.6 SEC (11.4-15.4) 09/03/20 05:56 INR 1.02 09/03/20 05:56 APTT 32.9 SEC (23.5-35.8) 09/03/20 05:56 Sodium 131.0 mmol/L (137-145) L 09/10/20 05:47 Potassium 3.7 mmol/L (3.6-5.0) 09/10/20 05:47 Chloride 94 mmol/L (98-107) L 09/10/20 05:47 Carbon Dioxide 30 mmol/L (22-30) 09/10/20 05:47 Anion Gap 7 (5-19) 09/10/20 05:47 BUN 22 mg/dL (7-20) H 09/10/20 05:47 Creatinine 0.61 mg/dL (0.52-1.25) 09/10/20 05:47 Est GFR ( Amer) > 60 (>60) 09/10/20 05:47 Est GFR (MDRD) Non-Af > 60 (>60) 09/10/20 05:47 Glucose 153 mg/dL (75-110) H 09/10/20 05:47 POC Glucose 143 mg/dL (70-110) H 09/10/20 06:42 Calcium 8.3 mg/dL (8.4-10.2) L 09/10/20 05:47 Magnesium 1.9 mg/dL (1.6-2.3) 09/06/20 06:21 Urine Color YELLOW 09/07/20 15:45 Urine Appearance CLEAR 09/07/20 15:45 Urine pH 5.0 (5.0-9.0) 09/07/20 15:45 Ur Specific [place] 1.026 09/07/20 15:45 Urine Protein NEGATIVE mg/dL (NEGATIVE) 09/07/20 15:45 Urine Glucose (UA) NEGATIVE mg/dL (NEGATIVE) 09/07/20 15:45 Urine Ketones NEGATIVE mg/dL (NEGATIVE) 09/07/20 15:45 Urine Blood NEGATIVE (NEGATIVE) 09/07/20 15:45 Urine Nitrite (Reflex) NEGATIVE (NEGATIVE) 09/07/20 15:45 Urine Bilirubin NEGATIVE (NEGATIVE) 09/07/20 15:45 Urine Urobilinogen NEGATIVE mg/dL (<2.0) 09/07/20 15:45 Leukocyte Esterase Rfl NEGATIVE (NEGATIVE) 09/07/20 15:45 Urine RBC (Auto) 1 /HPF 09/07/20 15:45 U Hyaline Cast (Auto) 5 /LPF 09/07/20 15:45 Urine WBC (Reflex) 3 /HPF 09/07/20 15:45 Squamous Epi Cells Auto <1 /HPF 09/07/20 15:45 Urine Mucus (Auto) RARE /LPF 09/07/20 15:45 Urine Ascorbic Acid NEGATIVE (NEGATIVE) 09/07/20 15:45 COVID-19 Source See comment 09/09/20 10:00 COVID-19 (RADHA) Not Detected (Not Detect) 09/09/20 10:00 Influenza A (RT-PCR) NEGATIVE (NEGATIVE) 09/03/20 13:40 Influenza B (RT-PCR) NEGATIVE (NEGATIVE) 09/03/20 13:40 RSV (RT-PCR) NEGATIVE (NEGATIVE) 09/03/20 13:40 SARS-CoV-2 Rap RNA(RT-PCR) NEGATIVE (NEGATIVE) 12/10/20 13:40 Impressions: Cervical Spine CT 09/02/20 10:33 IMPRESSION: CHRONIC DEGENERATIVE CHANGES. NO ACUTE FINDINGS. Chest X-Ray 09/02/20 10:33 IMPRESSION: No evidence of acute intrathoracic process. Head CT 09/02/20 10:33 IMPRESSION: MILD CHRONIC CHANGES OF ATROPHY AND MICROVASCULAR ISCHEMIA. NO ACUTE PROCESS. EVIDENCE OF ACUTE STROKE: NO. Pelvis X-Ray 09/02/20 10:33 IMPRESSION: Transcervical left femur fracture with mild impaction. Hip X-Ray 09/02/20 11:11 IMPRESSION: Transcervical left femur fracture with mild impaction. No dislocation. Hip X-Ray 09/06/20 11:41 IMPRESSION: Left hip arthroplasty in good alignment. Shoulder X-Ray 09/07/20 00:00 IMPRESSION: Intact total shoulder arthroplasty hardware without evidence of a periprosthetic fracture. Chest X-Ray 09/07/20 08:03 IMPRESSION: Left basilar atelectasis without a superimposed acute cardiopulmonary process. Plan Plan of Treatment: Patient is discharged to SNF for short term rehab. Recommend repeat chemistry to evaluate Sodium in 3-5 days. He should follow up with his PCP within 1 week. Follow up with Dr. Vail in 2 weeks. Take medications as prescribed. Encourage CPAP use. Return to the emergency department, as needed, for concerning symptoms. Time Spent: Greater than 30 Minutes Stroke Is this a Stroke Patient?: No Acute Heart Failure Is this a Heart Failure Patient?: No
== END 2020-09-10 16:00 | DRG 522 ==
LOC: ER 10:29 → EH 11:23 → 4S 12:18
PROVIDERS: ADMIT Internal Medicine; ATTEND Registered Nurse
PROC: 0SRS0JA Replacement of Left Hip Joint, Femoral Surface with Synthetic Substitute, Uncemented, Open Approach (ICD-10-PCS; principal; 2020-09-06 08:00)
PROC: 5A09357 Assistance with Respiratory Ventilation, Less than 24 Consecutive Hours, Continuous Positive Airway Pressure (ICD-10-PCS; 2020-09-09)
DX: S72.012A Unspecified intracapsular fracture of left femur, initial encounter for closed fracture (principal); I16.1 Hypertensive emergency; E87.1 Hypo-osmolality and hyponatremia; R29.6 Repeated falls; I10 Essential (primary) hypertension; Z20.828 Contact with and (suspected) exposure to other viral communicable diseases; E11.9 Type 2 diabetes mellitus without complications; I48.0 Paroxysmal atrial fibrillation; E83.42 Hypomagnesemia; E87.6 Hypokalemia; G47.33 Obstructive sleep apnea (adult) (pediatric); I25.10 Atherosclerotic heart disease of native coronary artery without angina pectoris; K21.9 Gastro-esophageal reflux disease without esophagitis; I25.2 Old myocardial infarction; Y92.129 Unspecified place in nursing home as the place of occurrence of the external cause; F43.10 Post-traumatic stress disorder, unspecified; W18.30XA Fall on same level, unspecified, initial encounter; E78.5 Hyperlipidemia, unspecified; R50.82 Postprocedural fever; I69.398 Other sequelae of cerebral infarction; H54.62 Unqualified visual loss, left eye, normal vision right eye; Z79.84 Long term (current) use of oral hypoglycemic drugs; Z79.899 Other long term (current) drug therapy; Z79.01 Long term (current) use of anticoagulants; Z95.1 Presence of aortocoronary bypass graft; Z87.891 Personal history of nicotine dependence
CPT/HCPCS: 01210; 36415; 70450; 71045; 72125; 72170; 80048; 81001; 82962; 83735; 85025; 85027; 85610; 85730; 87635; 88304; 88311; 93005; 93010; 94660; 94799; 99285; 0241U; C1776; C9803; J0690; J1100; J1170; J1815; J2250; J2370; J2405; J2704; J3010; J3370; J3475; J3480; J3490; J7030